=== PATIENT | female | born 1945 | race Caucasian/White ===

== ENCOUNTER → 2017-12-30 09:00 | Outpatient (CLI) | payer MEDICARE, OTHER, SELFPAY ==
--- NOTE | 2017-12-30 | DI.US.S_ITS ---
PROCEDURE: US ABD AORTA ANEURYSM SCREEN INDICATIONS: ABDOMINAL AORTIC ANEURYSM SCREENING TECHNIQUE: Real time scanning was performed of the aorta and iliac arteries, with image documentation. COMPARISON: None. FINDINGS: Aorta: Proximal aortic diameter measures 1.9 cm. Mid-aorta measures 1.5 cm. Distal aortic diameter is 1.7 cm. Iliac arteries: Right common iliac artery measures 1.1 cm. Left common iliac artery measures 1.2 cm. IMPRESSION: Negative for aneurysm. Dictated by: Fidencio Pimentel M.D. on 12/30/2017 at 10:37 Approved by: Fidencio Pimentel M.D. on 12/30/2017 at 10:38
== END ==
PROVIDERS: Family Provider Family Medicine; PCP Family Medicine; Visit Provider Family Medicine
DX: Z13.6 Encounter for screening for cardiovascular disorders (principal); M85.852 Other specified disorders of bone density and structure, left thigh; Z78.0 Asymptomatic menopausal state; Z82.62 Family history of osteoporosis; Z85.3 Personal history of malignant neoplasm of breast
CPT/HCPCS: 76706; 77080

== ENCOUNTER 2018-03-24 07:32 | Day surgery (SDC) | payer MEDICARE, OTHER, SELFPAY ==
--- NOTE | 2018-03-24 | PATH_ITS ---
[facility] Accession Number: [id number] . 01 Material submitted: . PART A: CECAL POLYP PART B: ASCENDING COLON POLYPS PART C: DESCENDING COLON POLYP PART D: SIGMOID COLON POLYP . 02 Diagnosis: A. Cecal Polyp: Colonic mucosa with no diagnostic abnormality, consistent with polypoid redundancy. Negative for serrated lesion, dysplasia or malignancy. . B. Ascending Colon Polyps: Sessile serrated adenoma x1. Colonic mucosa with no diagnostic abnormality, consistent with polypoid redundancy x1. . C. Descending Colon Polyp: Hyperplastic polyp. . D. Sigmoid Colon Polyp: Hyperplastic polyp. [facility]/03/26/2018 . 02 Electronically signed: . Angel Wilkins MD, PhD, Pathologist NPI- [id number] . 01 Gross description: . Part A: CECAL POLYP: Received in formalin is 1 fragment(s) of bonilla, soft tissue measuring 0.4 x 0.4 x 0.1 cm submitted entirely in 1 cassette(s) Part B: ASCENDING COLON POLYPS: Received in formalin are 2 fragment(s) of bonilla, soft tissue measuring 0.7 x 0.5 x 0.2 cm to 0.4 x 0.3 x 0.3 cm submitted entirely in 1 cassette(s) Part C: DESCENDING COLON POLYP: Received in formalin is 1 fragment(s) of bonilla, soft tissue measuring 0.5 x 0.4 x 0.4 cm submitted entirely in 1 cassette(s) Part D: SIGMOID COLON POLYP: Received in formalin is 1 fragment(s) of bonilla, soft tissue measuring 0.5 x 0.5 x 0.3 cm submitted entirely in 1 cassette(s) /CKI /CKI . 02 Pathologist provided ICD-10: D12.2 . 02 CPT . 470608, 023627, 921591, [id number] Performed at: [facility] [address] [id number] MD Jermaine Nix MD Phone: [phone] Performed at: [facility] [address] [place], [place] [id number] MD Rosa Moss MD Phone: [phone]
[2018-03-24 07:43] VITALS: BP 139/69; PULSE 60; RESP 15; TEMP 36.6; O2SAT 98; BMI 19.7
[2018-03-24] MEDS: SODIUM CHLORIDE 0.9% 1,000 ML 70 ML IV (07:59)
--- NOTE | 2018-03-24 08:05 | P.HP_ITS ---
History of Present Illness Date Patient Seen: 03/24/18 Chief complaint: [id number] COLONOSCOPY Narrative: Please refer to our office note dated 03/11/2018. There has been no change to the patient's history and physical exam from that office note. Patient History Family & Social History Social History: household members spouse Meds Home Medications Medication Instructions Recorded Confirmed Type metoprolol succinate 25 mg PO DAILY 03/24/18 03/24/18 History Allergies Allergy/AdvReac Type Severity Reaction Status Date / Time No Known Drug Allergies Allergy Verified 03/24/18 08:01 Review of Systems Review of Systems All systems reviewed & are unremarkable except as noted in HPI and below Exam Vital Signs (past 8 hours): - 03/24/18 07:43 Temperature 97.8 F Pulse Rate 60 Respiratory Rate 15 Blood Pressure 139/69 Pulse Oximetry 98 Oxygen Delivery Method Room Air Narrative Exam Narrative: General: Patient is well developed, not in apparent distress Cardiovascular: Regular rate and rhythm, no murmurs, rubs, or gallops; no evidence of edema; no palpable abdominal aortic aneurysm Gastrointestinal: Normoactive bowel sounds, soft, nontender, nondistended, no rebound tenderness, no hepatosplenomegaly, no evidence of hernia Assessment & Plan Plan: Assessment/Plan Narrative: 72-year-old female here for colon polyp surveillance. She has incidental lower abdominal pain and bloating. Last colonoscopy performed in 2012 with note of polyps. Regarding the procedure(s), the risks and potential complications, benefits, and alternatives (including not doing the procedure) were discussed with the patient. The risks include but are not limited to bleeding, splenic injury, infection, perforation which may require surgical intervention, missed lesions, and adverse reactions to sedative medicines. After a question and answer period , the patient agreed to proceed with the procedure(s) and gives informed consent.
--- NOTE | 2018-03-24 08:45 | PM.OP.ENDO ---
Operative Date/Time/Diagnoses Date of procedure: 03/24/18 Procedure Notes Procedure in detail: Surgeon: Matthew Snowden MD Procedure: Colonoscopy with polypectomy Preoperative diagnosis: Colon polyp surveillance, incidental lower abdominal pain Postoperative diagnosis: Five colon polyps status post polypectomy, sigmoid diverticulosis, grade 1 internal hemorrhoids Medications: Conscious sedation using 4 mg IV of Midazolam and 100 mcg IV of Fentanyl Preanesthesia Assessment An H and P was performed/updated and the Px?s ASA class is 2. The procedure was discussed in detail with the patient. The potential risks and complications including infection, bleeding, missed lesions, perforation, need for surgery in case of perforation, prolonged hospital stay, and were explained. A brief question and answer period was allotted and once all questions were answered, informed consent was obtained. The patient was brought back to the procedure room and placed on standard monitoring. The patient?s vital signs were monitored continuously throughout the entire procedure. Prior to starting, a timeout was performed to confirm the patient?s identity, allergies, medications, and procedure. Procedure in detail The patient was placed in left lateral decubitus position and once adequate sedation was obtained a SIMONE was performed. The digital rectal examination did not reveal any palpable lesions. The tip of the colonoscope was placed in the anal canal and advanced without difficulty all the way to the cecum which was identified by the appendiceal orifice and the ileocecal valve. The terminal ileum was intubated to a distance of 5 cm from the ileocecal valve and the mucosa appeared normal. The colonoscope was brought back to cecum and careful examination of all jordan of the colon was performed with irrigation of any residual stool. In the cecum near the appendiceal orifice there is note of a 3 mm sessile polyp which was removed by means of cold Jumbo forceps with minimal bleeding. Resection and retrieval were complete. There were a total of 3 polyps in the ascending colon, descending colon, and sigmoid colon measuring 2-3 mm in size and were sessile. These were removed by means of cold Jumbo forceps with minimal bleeding. Resection and retrieval were complete. There was a 5 mm sessile polyp in the ascending colon which was removed by means of cold snare with minimal bleeding. Resection and retrieval were complete There was note of few small diverticula in the sigmoid colon. Retroflexion was performed in the rectum which revealed grade 1 internal hemorrhoids. The patient tolerated the procedure well and will be brought back to the recovery area to be discharged once criteria are met. The prep was judged to be good/excellent and adequate to identify polyps less than 5 mm. The withdrawal time was 12 min. The total physician intraservice time was 20 min. Complications There were no complications and estimated blood loss was minimal. Recommendations: Resume previous diet Continue outPx medications Follow up pathology results Repeat colonoscopy in 3 or 5 years depending on pathology results Office follow up with Dr. Kohli as previously scheduled An emergency contact number was given to the patient for any complications related to the procedure
[2018-03-24 09:10] VITALS: BP 116/55; PULSE 60; RESP 12; TEMP 36.3; O2SAT 99
[2018-03-24] MEDS: MIDAZOLAM 5 MG/5 ML VIAL IV (09:10)
[2018-03-24] MEDS: fentaNYL 250 MCG/5 ML INJ IV (09:10)
--- NOTE | 2018-03-24 09:10 | PM.DS.1 ---
History of Present Illness Chief complaint: [id number] COLONOSCOPY Narrative: Please refer to our office note dated 03/11/2018. There has been no change to the patient's history and physical exam from that office note. Discharge Providers Primary care physician: Fely Bailey MD Discharge provider: Matthew Snowden MD Discharge Date: 03/24/18 Exam Vital Signs (past 8 hours): - 03/24/18 07:43 Temperature 97.8 F Pulse Rate 60 Respiratory Rate 15 Blood Pressure 139/69 Pulse Oximetry 98 Oxygen Delivery Method Room Air Narrative Exam Narrative: General: Patient is well developed, not in apparent distress Cardiovascular: Regular rate and rhythm, no murmurs, rubs, or gallops; no evidence of edema; no palpable abdominal aortic aneurysm Gastrointestinal: Normoactive bowel sounds, soft, nontender, nondistended, no rebound tenderness, no hepatosplenomegaly, no evidence of hernia Discharge Plan Discharge Plan Patient Disposition: Home Discharge comment: Discharge patient with a copy of procedure report Discharge Med Rec/Prescriptions Prescriptions: No Action metoprolol succinate 25 MG tablet 25 mg PO DAILY RF: 0 Discharge Orders: Discharge (Order); Ordered 03/24/18 Ordered By: Matthew Snowden Provider Discharge Instructions Diet: Diet as Tolerated Visit Report/Discharge Packet Stand Alone Forms: Surgery Discharge Discharge Data Primary Care Provider: Fely Bailey Attending Provider: Matthew Snowden
[2018-03-24 09:15] VITALS: BP 120/58; PULSE 55; RESP 12; O2SAT 100
[2018-03-24 09:19] VITALS: BP 114/53; PULSE 56; RESP 15; O2SAT 100
[2018-03-24 09:26] VITALS: BP 111/74; PULSE 67; RESP 12; TEMP 36.8; O2SAT 99
== END 2018-03-24 09:42 | disposition home or self-care (01) ==
PROVIDERS: Family Provider Family Medicine; PCP Family Medicine; Visit Provider Internal Medicine Gastroenterology
PROC: 0DJD8ZZ Inspection of Lower Intestinal Tract, Via Natural or Artificial Opening Endoscopic (ICD-10-PCS; CPT 45378; principal; 2018-03-24 09:00)
DX: R10.30 Lower abdominal pain, unspecified (principal); Z86.010 Personal history of colon polyps; K57.30 Diverticulosis of large intestine without perforation or abscess without bleeding; K64.0 First degree hemorrhoids; D12.2 Benign neoplasm of ascending colon
CPT/HCPCS: 45385; 45380; 88305; J2250; J3010

== ENCOUNTER → 2018-10-11 13:44 | Outpatient (CLI) | payer MEDICARE, OTHER, SELFPAY ==
--- NOTE | 2018-10-11 | DI.MRI.S_ITS ---
PROCEDURE: MR HEAD/BRAIN WO CON INDICATIONS: TRANSIENT CEREBRAL ISCHEMIA TECHNIQUE: Non-contrast axial T1 spin echo, axial T2 fast spin echo, sagittal and axial FLAIR, coronal T2 fast spin echo, axial gradient echo, axial diffusion and ADC through the brain. COMPARISON: None. FINDINGS: Image quality: Excellent. CSF spaces: Ventricles appear symmetric in size and shape. Basal cisterns are patent. No extra-axial fluid collections. Brain: No intracranial bleeds or mass effects. There is cerebral volume loss for age. There are periventricular and deep white matter chronic small vessel ischemic changes. Brainstem appears normal. Diffusion-weighted images show no acute ischemic insults. No chronic ischemic insults. Normal intravascular flow voids are present. Skull and face: Calvarial bone marrow is normal in signal. Orbits are normal. Sinuses: Sinuses and mastoids are clear. IMPRESSION: 1. No acute intracranial process. No acute ischemia. 2. Moderate atrophy and chronic microvascular ischemic changes. . Dictated by: Tahmina Snyder M.D. on 10/11/2018 at 14:43 Approved by: Tahmina Snyder M.D. on 10/11/2018 at 14:44
== END ==
PROVIDERS: Family Provider Family Medicine; PCP Family Medicine; Visit Provider Family Medicine
DX: G45.9 Transient cerebral ischemic attack, unspecified (principal)
CPT/HCPCS: 70551

== ENCOUNTER → 2018-10-25 08:27 | Outpatient (CLI) | payer MEDICARE, OTHER, SELFPAY ==
[2018-10-25 09:17] LABS: Alanine Aminotransferase 17 IU/L (9-52); Albumin 4.2 g/dL (3.5-5.0); Albumin Globulin Ratio 1.2 (1.0-2.8); Alkaline Phosphatase 78 U/L (38-126); Aspartate Aminotransferase 28 IU/L (14-36); Bilirubin Total 0.8 mg/dL (0.2-1.3); Blood Urea Nitrogen 19 mg/dL (7-17); Calcium 9.2 mg/dL (8.4-10.2); Carbon Dioxide 29 mmol/L (22-32); Chloride 105 mmol/L (98-107); Estimated Glomerular Filt Rate 54.5 mL/min (>60); Globulin 3.5 g/dL (1.7-4.1); Glucose 109 mg/dL (80-110); HEMOLYSIS < 15 (0-50); Potassium 4.5 mmol/L (3.4-5.1); Sodium 143 mmol/L (137-145); Total Protein 7.7 g/dL (6.3-8.2)
--- NOTE | 2018-10-25 10:25 | DI.CT.S_ITS ---
PROCEDURE: CT ABDOMEN PELVIS W CON INDICATIONS: Lower abdominal pain, unspecified TECHNIQUE: After the administration of oral and intravenous contrast, 5 mm thick sections acquired from the diaphragms to the symphysis. 5 mm thick coronal and sagittal reformats were performed. For radiation dose reduction, the following was used: automated exposure control, adjustment of mA and/or kV according to patient size. COMPARISON: [facility], US, US ABD AORTA ANEURYSM SCREEN, 12/30/2017, 9:40. FINDINGS: Image quality: Excellent. ABDOMEN: Lung bases: Lung bases are clear. Heart size is normal. Solid organs: Liver is normal in size and enhancement. Gallbladder wall is not thickened. Biliary system is non-dilated. Pancreas enhances normally. Spleen is normal in size and enhancement. No adrenal nodules. Kidneys are normal in size and enhancement, without hydronephrosis. Peritoneum and bowel: Stomach, small bowel, and colon loops are normal in caliber and wall thickness. No free fluid or air. Incidental note is made of a normal-appearing appendix. A mild to moderate amount of stool can be seen within the colon. Nodes and vessels: No retroperitoneal or mesenteric adenopathy. Aorta and inferior vena cava are normal in caliber. Miscellaneous: No ventral hernias. PELVIS: Genitourinary: Bladder wall thickness is normal. An atrophic uterus can be seen. No adnexal masses are seen. Miscellaneous: No inguinal hernias or adenopathy. Bones: No suspicious bony lesions. No vertebral body compression fractures. Focal L5-S1 degenerative change is seen. Mild levoconvex scoliotic curvature is noted. IMPRESSION: No imaging explanation is found for this patient's presenting symptoms. A mild to moderate of stool can be seen within the colon. No significant diverticula formation can be seen. Normal appendix. Incidental note is made of: Focal S1 degenerative change Dictated by: Fidencio Pimentel M.D. on 10/25/2018 at 12:10 Approved by: Fidencio Pimentel M.D. on 10/25/2018 at 12:12
== END ==
LOC: CT 08:28 → LAB 08:47
PROVIDERS: PCP Family Medicine; Visit Provider Family Medicine
DX: R10.30 Lower abdominal pain, unspecified (principal)
CPT/HCPCS: 36415; 74177; 80053; Q9967

== ENCOUNTER → 2018-11-18 10:13 | Outpatient (CLI) | payer MEDICARE, OTHER, SELFPAY ==
--- NOTE | 2018-11-18 | DI.MRI.S_ITS ---
PROCEDURE: MR SHOULDER LT WO CON INDICATIONS: rotator cuff pain TECHNIQUE: Noncontrast oblique coronal T2 fast spin echo with fat saturation, oblique sagittal T1 spin echo and T2 fast spin echo with fat saturation, axial T1 spin echo and T2 fast spin echo with fat saturation through the shoulder. COMPARISON: None. FINDINGS: Image quality: Excellent. Rotator cuff: Infraspinatus tendinopathy and low-grade bursal surface fraying. Teres minor appears intact. Subscapularis tendon also demonstrates low-grade bursal surface fraying without discrete tear. The subscapularis tendon appears intact. No atrophy of the rotator cuff musculature Bones and bursae: No bone marrow contusions or fractures. Mild acromioclavicular joint degeneration. The acromion demonstrates conventional anatomy, without an os acromiale. Mild subacromial/subdeltoid bursitis. Capsule and soft tissues: In the absence of intra-articular contrast, the labrum and glenohumeral ligaments appear intact. The long head of the biceps tendon demonstrates normal location and morphology. The rotator interval appears normal, without fibrosis. The coracohumeral ligament is not well visualized. IMPRESSION: Low-grade bursal surface fraying of the infraspinatus and supraspinatus tendons without discrete tear. Infraspinatus tendinopathy. Mild subacromial/subdeltoid bursitis. Dictated by: Missael Plummer M.D. on 11/18/2018 at 11:49 Approved by: Missael Plummer M.D. on 11/18/2018 at 11:53
--- NOTE | 2018-11-18 | DI.MRI.S_ITS ---
PROCEDURE: MR LUMBAR SPINE WO CON INDICATIONS: spinal stenosis TECHNIQUE: Noncontrast sagittal T1 spin echo and T2 fast echo, sagittal STIR, axial T1 and T2 fast spin echo through the lumbar spine. In cases with scoliosis, additional coronal T2 fast spin echo may be performed. COMPARISON: [facility], MR, L-SPINE WITHOUT CONTRAST, 06/19/2015, 9:10. [facility], CT, CT ABDOMEN PELVIS W CON, 10/25/2018, 10:35. FINDINGS: Image quality: Diagnostic Alignment and Curvature: There is normal bony alignment. Bone Marrow: Marrow is of normal overall signal. Scattered foci are seen, which are hyperintense on T1-weighted and T2-weighted imaging, which are most consistent with benign vertebral body hemangiomas. No acute vertebral body compression fractures. Spinal Cord: Conus medullaris terminates at the L1 level. Visualized cord demonstrates normal signal and size. Paraspinous Soft Tissues: No paravertebral masses. T12-L1: Normal appearance. L1-L2: No significant abnormality is seen. L2-L3: Mild to moderate loss of disc height and disc signal are seen. There is moderate disc bulge is seen, with a superimposed right foraminal disc extrusion, with superior migration of disc material. There is a degree of compression seen upon the exiting right L2 nerve root. This is best seen on series 3 images 4 and 5. No left-sided neural foraminal narrowing is seen. Mild central canal narrowing is seen. The disc extrusion is new compared to the prior examination. L3-L4: Mild loss of disc height is seen. Loss of disc signal is seen. Mild to moderate disc osteophyte complex is seen. Minimal to mild bilateral neural foraminal narrowing is seen. Mild central canal narrowing is seen. When comparison is made with the prior examination, these findings are similar. L4-L5: Moderate loss of disc height is seen. Loss of disc signal is seen. There is a focal annular fissure seen posteriorly. Moderate disc bulge is seen, with a mild central disc protrusion. Moderate facet joint hypertrophy is seen. There is moderate left-sided and no significant right-sided neural foraminal narrowing seen. No significant central canal narrowing is seen. No significant change from the prior. L5-S1: The disc height is well-preserved. Loss of disc signal is seen at this level. Moderate generalized disc bulge is seen. There is a superimposed left lateral recess disc extrusion seen, with superior migration of disc material. The disc extrusion is best seen on series 2 image 11. There is a degree of compression seen upon the exiting left L5 nerve root. Moderate right-sided neural foraminal narrowing is seen. No significant central canal narrowing is seen. The left-sided disc extrusion is clearly progressed compared to 2016. IMPRESSION: New disc extrusions can be seen within the foraminal regions on the right at L2-L3 and on the left at L5-S1. There is associated nerve root impingement. The underlying degenerative changes are otherwise similar. Dictated by: Fidencio Pimentel M.D. on 11/18/2018 at 12:31 Approved by: Fidencio Pimentel M.D. on 11/18/2018 at 12:37
== END ==
PROVIDERS: PCP Family Medicine; Visit Provider Physical Medicine & Rehabilitation
DX: M25.512 Pain in left shoulder (principal); M75.52 Bursitis of left shoulder; M51.26 Other intervertebral disc displacement, lumbar region; M51.27 Other intervertebral disc displacement, lumbosacral region; M48.07 Spinal stenosis, lumbosacral region
CPT/HCPCS: 72148; 73221

== ENCOUNTER → 2019-12-20 07:16 | Outpatient (CLI) | payer MEDICARE, OTHER, SELFPAY ==
[2019-12-20 09:08] LABS: Alanine Aminotransferase 22 IU/L (<35); Albumin 3.9 g/dL (3.5-5.0); Albumin Globulin Ratio 1.2 (1.0-2.8); Alkaline Phosphatase 79 U/L (38-126); Aspartate Aminotransferase 25 IU/L (14-36); BUN Creatinine Ratio 20.6 (6-22); Bilirubin Total 0.8 mg/dL (0.2-1.3); Blood Urea Nitrogen 20 mg/dL (7-17); Calcium 9.1 mg/dL (8.4-10.2); Carbon Dioxide 32 mmol/L (22-32); Chloride 105 mmol/L (98-107); Cholesterol 131 mg/dL (140-199); Estimated Glomerular Filt Rate 56.3 mL/min (>60); Globulin 3.2 g/dL (1.7-4.1); Glucose 103 mg/dL (80-110); HDL Cholesterol 50 mg/dL (40-60); HEMOLYSIS < 15 (0-50); LDL Cholesterol Calculated 59 mg/dL (<100); Potassium 4.7 mmol/L (3.4-5.1); Sodium 139 mmol/L (137-145); Total Protein 7.1 g/dL (6.3-8.2); Triglycerides 108 mg/dL (35-150)
[2019-12-20 09:33] LABS: Thyroid Stimulating Hormone 2.59 uIU/mL (0.47-4.68)
== END ==
PROVIDERS: PCP Family Medicine; Referring Provider Family Medicine; Visit Provider Family Medicine
DX: E78.5 Hyperlipidemia, unspecified (principal); R00.2 Palpitations
CPT/HCPCS: 36415; 80053; 80061; 84443

== ENCOUNTER → 2020-01-13 13:11 | Outpatient (CLI) | payer MEDICARE, OTHER, SELFPAY | PROVIDERS: PCP Family Medicine; Referring Provider Family Medicine; Visit Provider Family Medicine | DX: M81.0 Age-related osteoporosis without current pathological fracture (principal); Z78.0 Asymptomatic menopausal state | CPT/HCPCS: 77080 ==

== ENCOUNTER → 2020-06-15 07:07 | Outpatient (CLI) | payer MEDICARE, OTHER, SELFPAY ==
[2020-06-15 08:42] LABS: Add Manual Diff / Slide Review NO; Basophils Absolute Auto 100 /uL (0-100); Basophils Percent Auto 0.8 % (0-2); Eosinophils Absolute Auto 200 /uL (0-450); Eosinophils Percent Auto 2.4 % (2-4); Hematocrit 41.9 % (36-46); Hemoglobin 14.3 g/dL (12.0-16.0); Lymphocytes Absolute Auto 2500 /uL (1100-4500); Mean Corpuscular HGB Conc 34.1 % (30-36); Mean Corpuscular Volume 91.1 fL (80-100); Monocytes Absolute Auto 500 /uL (0-900); Monocytes Percent Auto 7.1 % (3-14); Neutrophils Absolute Auto 4000 /uL (1500-7000); Neutrophils Percent Auto 55.7 % (50-75); Platelet Count 197 X10^3/uL (150-400); Red Blood Cell Count 4.61 X10^6/uL (4.0-5.2); Red Cell Distribution Width 13.1 % (11.6-14.8); White Blood Cell Count 7.2 X10^3/uL (4.5-11.0)
[2020-06-15 09:04] LABS: Alanine Aminotransferase 68 IU/L (<35); Albumin Globulin Ratio 1.3 (1.0-2.8); Alkaline Phosphatase 94 U/L (38-126); Aspartate Aminotransferase 35 IU/L (14-36); Bilirubin Total 0.5 mg/dL (0.2-1.3); Blood Urea Nitrogen 23 mg/dL (7-17); Calcium 9.3 mg/dL (8.4-10.2); Carbon Dioxide 28 mmol/L (22-32); Chloride 105 mmol/L (98-107); Estimated Glomerular Filt Rate > 60.0 mL/min (>60); Globulin 3.1 g/dL (1.7-4.1); Glucose 104 mg/dL (80-110); HEMOLYSIS < 15 (0-50); Magnesium 2.1 mg/dL (1.6-2.3); Potassium 4.1 mmol/L (3.4-5.1); Sodium 139 mmol/L (137-145); Total Protein 7.1 g/dL (6.3-8.2)
== END ==
PROVIDERS: PCP Family Medicine; Referring Provider Family Medicine; Visit Provider Family Medicine
DX: I49.1 Atrial premature depolarization (principal); R42 Dizziness and giddiness
CPT/HCPCS: 36415; 80053; 83735; 84443; 85025

== ENCOUNTER → 2020-08-13 13:17 | Outpatient (CLI) | payer MEDICARE, OTHER, SELFPAY ==
[2020-08-13 16:40] LABS: COVID19 -Nasal RAPID Negative (Negative)
== END ==
PROVIDERS: PCP Family Medicine; Visit Provider Student in an Organized Health Care Education/Training Program
DX: Z01.812 Encounter for preprocedural laboratory examination (principal); Z20.822 Contact with and (suspected) exposure to COVID-19
CPT/HCPCS: 87635; C9803

== ENCOUNTER 2020-08-14 07:02 | Day surgery (SDC) | payer MEDICARE, OTHER, SELFPAY ==
[2020-08-14] MEDS: CATARACT EYE COMPOUND (10 DROPS/SYRINGE) 3 DROPS EYE-OP (07:42)
[2020-08-14] MEDS: PROPARACAINE 0.5% OPHTH SOL 2 DROPS EYE-OP (07:42)
[2020-08-14 07:45] VITALS: BP 152/75; PULSE 64; RESP 16; TEMP 36.6; O2SAT 97; BMI 21.4
--- NOTE | 2020-08-14 08:35 | P.OP_ITS ---
Operative Date/Time/Diagnoses Pre-op diagnosis: Nuclear cataract right eye Procedure & Clinicians Procedure: Cataract Surgery Same procedure as scheduled: Yes Surgeon: Hermilo Peralta Anesthesia Type: MAC +/- and Sedation Operative Notes Procedure in detail: Patient brought to the operating suite. Tetracaine drops placed in the right eye. Marking instrument was used to gia vertical and horizontal meridians. Patient was prepped and draped in sterile manner. Wire lid speculum was placed in the eye. Marking instrument was used to gia 10 degree meridian. Betadine drops were placed on the eye. This was irrigated. Lidocaine jelly was placed on the eye. A paracentesis port was created with a side-port blade. 0.1 mL 1% preservative free lidocaine was injected into the anterior chamber. The anterior chamber was deepened with viscoelastic. 2.6 mm keratome was used to create a temporal clear corneal incision. Cystotome and Utrata forceps were used to create continuous tear capsulorrhexis. Balanced salt solution was used to hydro dissect the nucleus. The phacoemulsification handpiece was inserted and the nucleus was removed using the stop and chop technique. The irrigation aspiration handpiece was inserted and the remaining cortex was removed. Anterior chamber was deepened with viscoelastic. An Smith [id number] intraocular lens with a power of 20.0 was injected into the capsular bag. Irrigation aspiration handpiece was inserted and the remaining viscoelastic was removed. The lens was rotated to the 10 degree meridian. Incision was hydrated with balanced salt solution and found to be leak free with pressure with Weck- Cesia sponges. 0.1 mL Vigamox injected anterior chamber. 0.3 mL Kenalog 10 mg was injected subconjunctivally. Lid speculum was removed. The patient left the operating room in excellent condition. Complications: none Post-operative Condition: stable Disposition: same day surgery
--- NOTE | 2020-08-14 08:35 | PM.PREOP ---
Pre-operative Note Interval Note History & Physical reviewed/Exam performed by Physician: Yes Changes to H&P: No
[2020-08-14] MEDS: BALANCED SALT IRRIG SOLN NO.2 500 ML, EPINEPHrine 1 MG IRR (08:53)
[2020-08-14] MEDS: TRIAMCINOLONE 50 MG/5 ML VIAL INJ (08:53)
[2020-08-14] MEDS: LIDOCAINE 2% (GLYDO) 6 ML GEL TOP (08:53)
[2020-08-14] MEDS: MOXIFLOXACIN INJ 4 MG/0.8 ML VIAL 0.5 MG EYE-OP (08:53)
[2020-08-14] MEDS: TETRACAINE 0.5% OPHTH DROPS 4 ML 2 DROPS EYE-OP (08:54)
[2020-08-14] MEDS: CHONDROIDTIN/SOD HYALURONATE 1.05 ML SYRINGE INTRAOCULA (08:54)
[2020-08-14] MEDS: PHENYLEPHRINE/LIDOCAINE VIAL (OR) 0.2 ML EYE-OP (08:54)
[2020-08-14 09:14] VITALS: BP 149/73; PULSE 60; RESP 16; TEMP 36.7; O2SAT 98
--- NOTE | 2020-08-14 09:19 | SUR.PHASEII ---
Ready to go, called, pt dressed and left when ready.
== END 2020-08-14 09:23 | disposition home or self-care (01) ==
PROVIDERS: PCP Family Medicine; Referring Provider Family Medicine; Visit Provider Ophthalmology
PROC: (CPT 66984; principal; 2020-08-14 08:45)
DX: H25.11 Age-related nuclear cataract, right eye (principal); G51.0 Bell's palsy; E78.00 Pure hypercholesterolemia, unspecified; I10 Essential (primary) hypertension
CPT/HCPCS: 66984; J0171; J2250; J2704; J3301; V2787

== ENCOUNTER → 2020-08-27 09:38 | Outpatient (CLI) | payer MEDICARE, OTHER, SELFPAY ==
[2020-08-27 11:27] LABS: COVID19 -Nasal RAPID Negative (Negative)
== END ==
PROVIDERS: PCP Family Medicine; Visit Provider Student in an Organized Health Care Education/Training Program
DX: Z01.812 Encounter for preprocedural laboratory examination (principal); Z20.822 Contact with and (suspected) exposure to COVID-19
CPT/HCPCS: 87635; C9803

== ENCOUNTER 2020-08-28 06:33 | Day surgery (SDC) | payer MEDICARE, OTHER, SELFPAY ==
[2020-08-28 07:03] VITALS: BP 142/82; PULSE 61; RESP 13; TEMP 36.7; O2SAT 96; BMI 19.7
[2020-08-28] MEDS: PROPARACAINE 0.5% OPHTH SOL 2 DROPS EYE-OP (07:10)
[2020-08-28] MEDS: CATARACT EYE COMPOUND (10 DROPS/SYRINGE) 3 DROPS EYE-OP (07:11)
--- NOTE | 2020-08-28 07:27 | P.OP_ITS ---
Operative Date/Time/Diagnoses Pre-op diagnosis: Nuclear Cataract Left eye Post-op diagnosis: same Procedure & Clinicians Same procedure as scheduled: Yes Surgeon: Hermilo Peralta Anesthesia Type: MAC +/- and Sedation Operative Notes Procedure in detail: Patient brought to the operating suite. Tetracaine drops placed in the left eye. Marking instrument was used to gia the vertical and horizontal meridian. Patient was prepped and draped in sterile manner. Wire lid speculum was placed in the eye. Marking instrument was used to gia the 175 degree meridian. Betadine drops were placed on the eye. This was irrigated. Lidocaine jelly was placed on the eye. A paracentesis port was created with a side-port blade. 0.1 mL 1% preservative free lidocaine was injected into the anterior chamber. The anterior chamber was deepened with viscoelastic. 2.6 mm keratome was used to create a temporal clear corneal incision. Cystotome and Utrata forceps were used to create continuous tear capsulorrhexis. Balanced salt solution was used to hydro dissect the nucleus. The phacoemulsification handpiece was inserted and the nucleus was removed using the stop and chop te chnique. The irrigation aspiration handpiece was inserted and the remaining cortex was removed. Anterior chamber was deepened with viscoelastic. An Smith [id number] intraocular lens with a power of 20.0 was injected into the capsular bag. Irrigation aspiration handpiece was inserted and the remaining viscoelastic was removed. The lens was rotated to the 175 degree meridian. Incision was hydrated with balanced salt solution and found to be leak free with pressure with Weck- Cesia sponges. 0.1 mL Vigamox injected anterior chamber. 0.3 mL Kenalog 10 mg was injected subconjunctivally. Lid speculum was removed. The patient left the operating room in excellent condition. Complications: none Post-operative Condition: stable Disposition: same day surgery
--- NOTE | 2020-08-28 07:27 | PM.PREOP ---
Pre-operative Note Interval Note History & Physical reviewed/Exam performed by Physician: Yes Changes to H&P: No
[2020-08-28] MEDS: TETRACAINE 0.5% OPHTH DROPS 4 ML 2 DROPS EYE-OP (07:43)
[2020-08-28] MEDS: CHONDROIDTIN/SOD HYALURONATE 1.05 ML SYRINGE INTRAOCULA (07:50)
[2020-08-28] MEDS: PHENYLEPHRINE/LIDOCAINE VIAL (OR) 0.2 ML EYE-OP (07:51)
[2020-08-28] MEDS: MOXIFLOXACIN INJ 4 MG/0.8 ML VIAL 0.5 MG EYE-OP (07:51)
[2020-08-28] MEDS: LIDOCAINE 2% (GLYDO) 6 ML GEL TOP (07:52)
[2020-08-28] MEDS: BALANCED SALT IRRIG SOLN NO.2 500 ML, EPINEPHrine 1 MG IRR (07:53)
[2020-08-28] MEDS: TRIAMCINOLONE 50 MG/5 ML VIAL INJ (07:53)
[2020-08-28 08:14] VITALS: BP 145/78; PULSE 58; RESP 14; TEMP 36.9; O2SAT 96
== END 2020-08-28 08:19 | disposition home or self-care (01) ==
PROVIDERS: PCP Family Medicine; Referring Provider Ophthalmology; Visit Provider Ophthalmology
PROC: (CPT 66984; principal; 2020-08-28 07:45)
DX: H25.12 Age-related nuclear cataract, left eye (principal); G51.0 Bell's palsy; E78.00 Pure hypercholesterolemia, unspecified; I10 Essential (primary) hypertension
CPT/HCPCS: 66984; J0171; J2250; J2405; J3301; V2787

== ENCOUNTER 2020-11-16 13:00 | Outpatient (RCR) | payer MEDICARE, OTHER, SELFPAY ==
--- NOTE | 2020-10-10 15:36 | PT.OIE ---
Current Diagnoses Bilateral primary osteoarthritis of hip (10/10/20) Spinal stenosis, lumbar region without neurogenic claudication (10/10/20) Age-related osteoporosis without current pathological fracture (10/10/20) Visit Care Team Role Provider Type Fely Bailey MD Primary Care Provider Non-Staff Specialty: Family Practice Address: [address] [place] [address], [phone] Email: Nish Kinsey MD Attending Provider Physician Referring Provider Specialty: Orthopedics Address: [address] [place] [address], [phone] Email: [email or web address] Physical Therapy Initial Evaluation PT-OP-A Visit Information Start: 10/09/20 15:32 Freq: Status: Active Protocol: Document 10/10/20 08:57 MB (Rec: 10/10/20 09:17 MB [id number]) Out-Patient Physical Therapy Visit Information Visit Information Visit Type Initial Evaluation Visit Note Medicare Premera Visit Start Time 08:57 Visit Stop Time 09:42 Total Visit Minutes 45 Visit Number 1 PT-OP-B Current Condition Start: 10/09/20 15:32 Freq: Status: Active Protocol: Document 10/10/20 08:57 MB (Rec: 10/10/20 09:17 MB [id number]) Current Condition History of Current Condition Onset Date Many years of LBP Current Complaints LBP that occ goes down the legs History of Current Condition Pt states that she has had LBP for many years. It has gotten worse over the last year that she thinks might be worse d/t lack of activity over COVID. Pt's last bone scan reported OP and she is not on any medication. Pt reports pretty much constant LBP that she rates as 4/10 and 3/10 right hip pain. Order from doctor B primary OA of the hip, spinal stenosis lumbar region without claudication, OP unspecified. Pt reports occ pinching pain that goes down both legs and across groin. She more often has pain going down the right leg. She was hoping to get another MRI of her back and her doctor would like for her to try PT first. Pt had PT in the past for LBP. She went to [facility] and did not connect with the people there. She went to another therapist on [address] and the pain did not get better. She still has her exercises. She has pain when she turns over in bed. Prior Treatments and Tests PT in the past that did not help. Treatment Goals Patient/Caregiver Goals To decrease pain and improve flexibility PT-OP-C Subjective Start: 10/09/20 15:32 Freq: Status: Active Protocol: Document 10/10/20 08:57 MB (Rec: 10/10/20 09:17 MB [id number]) OP-PT Subjective Patient Comments Patient Comments See history of current condition Patient Questionnaires Lower Extremity Functional Scale LEFS Score 46 LEFS Impairment 40 to 59% Impaired (Score 32- 47) Oswestry Low Back Index Oswestry Score 10 Oswestry Impairment 20 to 39% Impaired (Score 20- 39) PT-OP-J Posture/Palpation/Skin Start: 10/09/20 15:32 Freq: Status: Active Protocol: Document 10/10/20 08:57 MB (Rec: 10/10/20 15:35 MB [id number]) Posture Evaluation Comments Posture Comments Dowager's hump, decreased thoracic kyphosis, right cervical SB and increased tension at right SCM attachment to SC joint, right shoulder lower than the left, right scapula lower than the left, left iliac crest higher than the right, left ankle overpronated. No noticeable lateral shift scoliosis in standing (may be appropriate for Spinomed IV brace in the future), some changes at lower cervical and upper thoracic vertebra C7-T2 area. Spinal movement comments: B thoracic rotation grossly similar in sitting, B SB with hands sliding down the outside of leg grossly similar and pt reports it feels more stiff on the left PT-OP-K Range of Motion Start: 10/09/20 15:32 Freq: Status: Active Protocol: Document 10/10/20 08:57 MB (Rec: 10/10/20 15:35 MB [id number]) Hip Goniometric Range of Motion Hip ROM Limitations Comments SLR right 60 deg and left 75 deg PT-OP-M Strength Start: 10/09/20 15:32 Freq: Status: Active Protocol: Document 10/10/20 08:57 MB (Rec: 10/10/20 15:35 MB [id number]) Hip Strength Hip Manual Muscle Testing Left Flexion (L2) 5 Normal Abduction 4 Good Adduction 4 Good Right Flexion (L2) 3+ Fair+ Abduction 3+ Fair+ Adduction 4 Good Knee Strength Knee Manual Muscle Testing Left Flexion (S2) 5 Normal Extension (L3) 5 Normal Right Flexion (S2) 4 Good Extension (L3) 5 Normal Ankle/Foot Strength Ankle and Foot Manual Muscle Testing Bilateral Dorsiflexion (L4) 5 Normal Plantarflexion (S1) 5 Normal Toe Strength Toe Manual Muscle Testing Right Great Toe Extension 5 Normal Left Great Toe Extension 5 Normal PT-OP-Q Treatments Start: 10/09/20 15:32 Freq: Status: Active Protocol: Document 10/10/20 08:57 MB (Rec: 10/10/20 15:35 MB [id number]) Self-Care/Home Management Treatment Education Other Education Benefits of aquatic exercise and that PT can provide program for her to try in the pool, benefits of log roll technique to protect spine, use of towel roll in pillow case to support neck and pillow between arms and legs to support posture in side lying PT-OP-T Assessment and Plan Start: 10/09/20 15:32 Freq: Status: Active Protocol: Document 10/10/20 08:57 MB (Rec: 10/10/20 15:35 MB [id number]) Physical Therapy Assessment Rehab Potential Rehabilitation Potential Fair Evaluation Complexity Number of Personal Factors/Comorbidities 1-2 Number of Body Systems Impaired 1-2 Clinical Presentation at Evaluation Evolving Impairments Impairments Activity Tolerance,Balance, Functional Activities, Functional Mobility,Gait,Pain, Posture,ROM,Soft Tissue Mobility,Strength Other Impairments Pt denies paresthesisa. Personal factors include recent more sedentary lifestyle. Body systems affected include musculoskeletal and neuromuscular. Her clinical presentation is evolving in setting of progressive age, OP not being treated medically, stenosis (degenerative processes). Goals 5 Jail Goal (LTG) Pt will perform progressive HEP with I including flexibility, core, body mechanics, strengthening and balance exercises to decrease pain and improve mobility by . LTG Duration 8 weeks 4 Fish Hatchery Manager Goal (LTG) Pt will gait train at least 1400 feet in 6 minutes to improve balance and pain with community ambulation by . LTG Duration 8 weeks 3 Fish Hatchery Manager Goal (LTG) Pt will present with improved B hip flexion, abduction and knee extension strength to 5/5 B to improve functional activities and pain by 12/10/20 . LTG Duration 8 weeks 2 Fish Hatchery Manager Goal (LTG) Pt will present with an improved Oswestry LBP score to reflect no more than 10% impairment indicating improved back pain by 12/10/20. LTG Duration 8 weeks 1 Jail Goal (LTG) Pt will present with an improved LEF score to reflect no more than 25% impairment indicating improved function by 12/10/20. LTG Duration 8 weeks Assessment Summary Assessment Pt is a 75 y/o female presenting with reports of chronic and constant LBP, right greater than left hip pain and occ shooting pain in her groins and upper legs. She has a history of OP, spinal stenosis and hip OA. Previous PT courses have not been helpful and she did not try aquatic exercise or Blanca Hailee style interventions or a Spinomed IV brace. Pt may benefit from these interventions and so PT will try these different things with her this PT course. This date, she presents with postural changes, decreased SLR right greater than left, and LE weakness. Pt may benefit from PT to improve posture, core strength, LE flexibility and strength and balance. Physical Therapy Plan Frequency and Duration Frequency of Treatment 2x/Week Duration of Treatment 8 weeks Plan of Care Start Date 10/10/20 Plan of Care End Date 12/10/20 Therapeutic Interventions Therapeutic Interventions Aquatic Therapy,Balance Training,Canalithic Repositioning,Gait Training, Home Exercise Program,Joint Mobilizations,Manual Therapy, Neuromuscular Re-education, Patient/Caregiver Education, Self-Care/Home Management,Soft Tissue Mobilization, Therapeutic Activities, Therapeutic Exercises Modalities Cold Pack/Ice Massage,Hot Packs Next Visit Focus/Plan Next Note Type Treatment Note Next Visit Plan Review her previous PT exercises, initiate pelvic realignment exercises and abdominal drawing in
--- NOTE | 2020-10-10 15:36 | PT.OPPOC ---
Physical, Occupational & Speech Therapy At [facility] Current Diagnoses Bilateral primary osteoarthritis of hip (10/10/20) Spinal stenosis, lumbar region without neurogenic claudication (10/10/20) Age-related osteoporosis without current pathological fracture (10/10/20) Visit Care Team Role Provider Type Fely Bailey MD Primary Care Provider Non-Staff Specialty: [facility] Address: [address] [place] [address], [phone] Email: Nish Kinsey MD Attending Provider Physician Referring Provider Specialty: Orthopedics Address: [address] [place] [address], [phone] Email: [email or web address] Plan Of Care PT-OP-T Assessment and Plan Start: 10/09/20 15:32 Freq: Status: Active Protocol: Document 10/10/20 08:57 MB (Rec: 10/10/20 15:35 MB [id number]) Physical Therapy Assessment Rehab Potential Rehabilitation Potential Fair Evaluation Complexity Number of Personal Factors/Comorbidities 1-2 Number of Body Systems Impaired 1-2 Clinical Presentation at Evaluation Evolving Impairments Impairments Activity Tolerance,Balance, Functional Activities, Functional Mobility,Gait,Pain, Posture,ROM,Soft Tissue Mobility,Strength Other Impairments Pt denies paresthesisa. Personal factors include recent more sedentary lifestyle. Body systems affected include musculoskeletal and neuromuscular. Her clinical presentation is evolving in setting of progressive age, OP not being treated medically, stenosis (degenerative processes). Goals 5 Cpc Coder Goal (LTG) Pt will perform progressive HEP with I including flexibility, core, body mechanics, strengthening and balance exercises to decrease pain and improve mobility by . LTG Duration 8 weeks 4 Cpc Coder Goal (LTG) Pt will gait train at least 1400 feet in 6 minutes to improve balance and pain with community ambulation by . LTG Duration 8 weeks 3 Assisted Goal (LTG) Pt will present with improved B hip flexion, abduction and knee extension strength to 5/5 B to improve functional activities and pain by 12/10/20 . LTG Duration 8 weeks 2 Cpc Coder Goal (LTG) Pt will present with an improved Oswestry LBP score to reflect no more than 10% impairment indicating improved back pain by 12/10/20. LTG Duration 8 weeks 1 Cpc Coder Goal (LTG) Pt will present with an improved LEF score to reflect no more than 25% impairment indicating improved function by 12/10/20. LTG Duration 8 weeks Assessment Summary Assessment Pt is a 75 y/o female presenting with reports of chronic and constant LBP, right greater than left hip pain and occ shooting pain in her groins and upper legs. She has a history of OP, spinal stenosis and hip OA. Previous PT courses have not been helpful and she did not try aquatic exercise or Blanca Hailee style interventions or a Spinomed IV brace. Pt may benefit from these interventions and so PT will try these different things with her this PT course. This date, she presents with postural changes, decreased SLR right greater than left, and LE weakness. Pt may benefit from PT to improve posture, core strength, LE flexibility and strength and balance. Physical Therapy Plan Frequency and Duration Frequency of Treatment 2x/Week Duration of Treatment 8 weeks Plan of Care Start Date 10/10/20 Plan of Care End Date 12/10/20 Therapeutic Interventions Therapeutic Interventions Aquatic Therapy,Balance Training,Canalithic Repositioning,Gait Training, Home Exercise Program,Joint Mobilizations,Manual Therapy, Neuromuscular Re-education, Patient/Caregiver Education, Self-Care/Home Management,Soft Tissue Mobilization, Therapeutic Activities, Therapeutic Exercises Modalities Cold Pack/Ice Massage,Hot Packs Next Visit Focus/Plan Next Note Type Treatment Note Next Visit Plan Review her previous PT exercises, initiate pelvic realignment exercises and abdominal drawing in Plan of Care Dates Plan of Care Start Date 10/10/20 Plan of Care End Date 12/10/20 Electronically Signed by: Elle Finney, PT 10/10/20 [id number] Please Sign and Return: I have reviewed this Plan of Care and certify that the skilled therapy services above are required to meet the patient?s needs. Physician Signature Date Printed Name and Credentials Clinical Instructor Signature Printed Name and Credentials
--- NOTE | 2020-10-11 08:55 | PT.OTN ---
Current Diagnoses Bilateral primary osteoarthritis of hip (10/11/20) Spinal stenosis, lumbar region without neurogenic claudication (10/11/20) Age-related osteoporosis without current pathological fracture (10/11/20) Physical Therapy Treatment Note PT-OP-A Visit Information Start: 10/09/20 15:32 Freq: Status: Active Protocol: Document 10/11/20 08:15 MB (Rec: 10/11/20 08:52 MB [id number]) Out-Patient Physical Therapy Visit Information Visit Information Visit Type Treatment Note Visit Note Medicare Premera Visit Start Time 08:15 Visit Stop Time 08:54 Total Visit Minutes 39 Visit Number 2 PT-OP-B Current Condition Start: 10/09/20 15:32 Freq: Status: Active Protocol: Document 10/10/20 08:57 MB (Rec: 10/10/20 09:17 MB [id number]) Current Condition History of Current Condition Onset Date Many years of LBP Current Complaints LBP that occ goes down the legs History of Current Condition Pt states that she has had LBP for many years. It has gotten worse over the last year that she thinks might be worse d/t lack of activity over COVID. Pt's last bone scan reported OP and she is not on any medication. Pt reports pretty much constant LBP that she rates as 4/10 and 3/10 right hip pain. Order from doctor B primary OA of the hip, spinal stenosis lumbar region without claudication, OP unspecified. Pt reports occ pinching pain that goes down both legs and across groin. She more often has pain going down the right leg. She was hoping to get another MRI of her back and her doctor would like for her to try PT first. Pt had PT in the past for LBP. She went to [facility] and did not connect with the people there. She went to another therapist on [address] and the pain did not get better. She still has her exercises. She has pain when she turns over in bed. Prior Treatments and Tests PT in the past that did not help. Treatment Goals Patient/Caregiver Goals To decrease pain and improve flexibility PT-OP-C Subjective Start: 10/09/20 15:32 Freq: Status: Active Protocol: Document 10/11/20 08:15 MB (Rec: 10/11/20 08:52 MB [id number]) OP-PT Subjective Patient Comments Patient Comments Pt brings in exercises from previous PT courses. PT-OP-J Posture/Palpation/Skin Start: 10/09/20 15:32 Freq: Status: Active Protocol: Document 10/10/20 08:57 MB (Rec: 10/10/20 15:35 MB [id number]) Posture Evaluation Comments Posture Comments Dowager's hump, decreased thoracic kyphosis, right cervical SB and increased tension at right SCM attachment to SC joint, right shoulder lower than the left, right scapula lower than the left, left iliac crest higher than the right, left ankle overpronated. No noticeable lateral shift scoliosis in standing (may be appropriate for Spinomed IV brace in the future), some changes at lower cervical and upper thoracic vertebra C7-T2 area. Spinal movement comments: B thoracic rotation grossly similar in sitting, B SB with hands sliding down the outside of leg grossly similar and pt reports it feels more stiff on the left PT-OP-K Range of Motion Start: 10/09/20 15:32 Freq: Status: Active Protocol: Document 10/10/20 08:57 MB (Rec: 10/10/20 15:35 MB [id number]) Hip Goniometric Range of Motion Hip ROM Limitations Comments SLR right 60 deg and left 75 deg PT-OP-M Strength Start: 10/09/20 15:32 Freq: Status: Active Protocol: Document 10/10/20 08:57 MB (Rec: 10/10/20 15:35 MB [id number]) Hip Strength Hip Manual Muscle Testing Left Flexion (L2) 5 Normal Abduction 4 Good Adduction 4 Good Right Flexion (L2) 3+ Fair+ Abduction 3+ Fair+ Adduction 4 Good Knee Strength Knee Manual Muscle Testing Left Flexion (S2) 5 Normal Extension (L3) 5 Normal Right Flexion (S2) 4 Good Extension (L3) 5 Normal Ankle/Foot Strength Ankle and Foot Manual Muscle Testing Bilateral Dorsiflexion (L4) 5 Normal Plantarflexion (S1) 5 Normal Toe Strength Toe Manual Muscle Testing Right Great Toe Extension 5 Normal Left Great Toe Extension 5 Normal PT-OP-Q Treatments Start: 10/09/20 15:32 Freq: Status: Active Protocol: Document 10/11/20 08:15 MB (Rec: 10/11/20 08:52 MB [id number]) Therapeutic Exercises Supine Exercises Anterior hip stretch Side bilateral Comments Opposite leg bent to chest and one leg straight with QS and DF, 30 sec Hamstring stretch with AP Side bilateral Comments 30 sec hold each, AP foot Knees bent, core tight, lengthening overhead Supine Exercise Name Lengthening with arms overhead Side bilateral Comments Knees bent, core tight, pelvic tilt, B shoulder flexion x10 Happy baby Side bilateral Comments 30 sec hold x2 reps Abdominal drawing in Comments Pelvic tilt first Pelvic realignment exercises Side bilateral Comments 5 reps all, 3 sec hold Self-Care/Home Management Treatment Activities Self-Care/Home Management Activities Pt brings in old handouts. PT and pt review all exercises: piriformis stretch and bridge caused pain. She liked side lying clam circuit. Tennis ball massage on glutes really hurt. PT hands old handouts back to pt and encourages her not to perform any of the exercises at this time. PT-OP-T Assessment and Plan Start: 10/09/20 15:32 Freq: Status: Active Protocol: Document 10/11/20 08:15 MB (Rec: 10/11/20 08:52 MB [id number]) Physical Therapy Assessment Rehab Potential Rehabilitation Potential Fair Evaluation Complexity Number of Personal Factors/Comorbidities 1-2 Number of Body Systems Impaired 1-2 Clinical Presentation at Evaluation Evolving Impairments Impairments Activity Tolerance,Balance, Functional Activities, Functional Mobility,Gait,Pain, Posture,ROM,Soft Tissue Mobility,Strength Other Impairments Pt denies paresthesisa. Personal factors include recent more sedentary lifestyle. Body systems affected include musculoskeletal and neuromuscular. Her clinical presentation is evolving in setting of progressive age, OP not being treated medically, stenosis (degenerative processes). Goals 5 Long-Term Goal (LTG) Pt will perform progressive HEP with I including flexibility, core, body mechanics, strengthening and balance exercises to decrease pain and improve mobility by . LTG Duration 8 weeks 4 Recovery Coordinator Goal (LTG) Pt will gait train at least 1400 feet in 6 minutes to improve balance and pain with community ambulation by . LTG Duration 8 weeks 3 Recovery Coordinator Goal (LTG) Pt will present with improved B hip flexion, abduction and knee extension strength to 5/5 B to improve functional activities and pain by 12/10/20 . LTG Duration 8 weeks 2 Long-Term Goal (LTG) Pt will present with an improved Oswestry LBP score to reflect no more than 10% impairment indicating improved back pain by 12/10/20. LTG Duration 8 weeks 1 Long-Term Goal (LTG) Pt will present with an improved LEF score to reflect no more than 25% impairment indicating improved function by 12/10/20. LTG Duration 8 weeks Assessment Summary Assessment Reviewed pt's previous HEP exercises today. Initiated PT exercises in hook lying. Pt performs well. Physical Therapy Plan Frequency and Duration Frequency of Treatment 2x/Week Duration of Treatment 8 weeks Plan of Care Start Date 10/10/20 Plan of Care End Date 12/10/20 Therapeutic Interventions Therapeutic Interventions Aquatic Therapy,Balance Training,Canalithic Repositioning,Gait Training, Home Exercise Program,Joint Mobilizations,Manual Therapy, Neuromuscular Re-education, Patient/Caregiver Education, Self-Care/Home Management,Soft Tissue Mobilization, Therapeutic Activities, Therapeutic Exercises Modalities Cold Pack/Ice Massage,Hot Packs Next Visit Focus/Plan Next Note Type Treatment Note Next Visit Plan Progress hook lying exercises including lengthening and flexibility, shoulder and hip strengthening, pect stretch. Consider Buteyko breathing, diaphragm awareness
--- NOTE | 2020-10-16 14:37 | PT.OTN ---
Current Diagnoses Bilateral primary osteoarthritis of hip (10/16/20) Spinal stenosis, lumbar region without neurogenic claudication (10/16/20) Age-related osteoporosis without current pathological fracture (10/16/20) Physical Therapy Treatment Note PT-OP-A Visit Information Start: 10/09/20 15:32 Freq: Status: Active Protocol: Document 10/16/20 13:46 MB (Rec: 10/16/20 14:37 MB [id number]) Out-Patient Physical Therapy Visit Information Visit Information Visit Type Treatment Note Visit Note Medicare Premera Visit Start Time 13:46 Visit Stop Time 14:30 Total Visit Minutes 44 Visit Number 3 PT-OP-B Current Condition Start: 10/09/20 15:32 Freq: Status: Active Protocol: Document 10/10/20 08:57 MB (Rec: 10/10/20 09:17 MB [id number]) Current Condition History of Current Condition Onset Date Many years of LBP Current Complaints LBP that occ goes down the legs History of Current Condition Pt states that she has had LBP for many years. It has gotten worse over the last year that she thinks might be worse d/t lack of activity over COVID. Pt's last bone scan reported OP and she is not on any medication. Pt reports pretty much constant LBP that she rates as 4/10 and 3/10 right hip pain. Order from doctor B primary OA of the hip, spinal stenosis lumbar region without claudication, OP unspecified. Pt reports occ pinching pain that goes down both legs and across groin. She more often has pain going down the right leg. She was hoping to get another MRI of her back and her doctor would like for her to try PT first. Pt had PT in the past for LBP. She went to [facility] and did not connect with the people there. She went to another therapist on [address] and the pain did not get better. She still has her exercises. She has pain when she turns over in bed. Prior Treatments and Tests PT in the past that did not help. Treatment Goals Patient/Caregiver Goals To decrease pain and improve flexibility PT-OP-C Subjective Start: 10/09/20 15:32 Freq: Status: Active Protocol: Document 10/16/20 13:46 MB (Rec: 10/16/20 14:37 MB [id number]) OP-PT Subjective Patient Comments Patient Comments Pt states that she has been running her to emergency 2x over the weekend. PT-OP-J Posture/Palpation/Skin Start: 10/09/20 15:32 Freq: Status: Active Protocol: Document 10/10/20 08:57 MB (Rec: 10/10/20 15:35 MB [id number]) Posture Evaluation Comments Posture Comments Dowager's hump, decreased thoracic kyphosis, right cervical SB and increased tension at right SCM attachment to SC joint, right shoulder lower than the left, right scapula lower than the left, left iliac crest higher than the right, left ankle overpronated. No noticeable lateral shift scoliosis in standing (may be appropriate for Spinomed IV brace in the future), some changes at lower cervical and upper thoracic vertebra C7-T2 area. Spinal movement comments: B thoracic rotation grossly similar in sitting, B SB with hands sliding down the outside of leg grossly similar and pt reports it feels more stiff on the left PT-OP-K Range of Motion Start: 10/09/20 15:32 Freq: Status: Active Protocol: Document 10/10/20 08:57 MB (Rec: 10/10/20 15:35 MB [id number]) Hip Goniometric Range of Motion Hip ROM Limitations Comments SLR right 60 deg and left 75 deg PT-OP-M Strength Start: 10/09/20 15:32 Freq: Status: Active Protocol: Document 10/10/20 08:57 MB (Rec: 10/10/20 15:35 MB [id number]) Hip Strength Hip Manual Muscle Testing Left Flexion (L2) 5 Normal Abduction 4 Good Adduction 4 Good Right Flexion (L2) 3+ Fair+ Abduction 3+ Fair+ Adduction 4 Good Knee Strength Knee Manual Muscle Testing Left Flexion (S2) 5 Normal Extension (L3) 5 Normal Right Flexion (S2) 4 Good Extension (L3) 5 Normal Ankle/Foot Strength Ankle and Foot Manual Muscle Testing Bilateral Dorsiflexion (L4) 5 Normal Plantarflexion (S1) 5 Normal Toe Strength Toe Manual Muscle Testing Right Great Toe Extension 5 Normal Left Great Toe Extension 5 Normal PT-OP-Q Treatments Start: 10/09/20 15:32 Freq: Status: Active Protocol: Document 10/16/20 13:46 MB (Rec: 10/16/20 14:37 MB [id number]) Therapeutic Exercises Supine Exercises Buteyko breathing Supine Exercise Name Ed in theory and taught exercise 1 and diaphragm breathing Comments See assessment Pect stretch Side bilateral Comments Core tight, pelvic tilt, arms up and to side, 30 sec Core progression Supine Exercise Name Set position, knee rocking, HS , mini marches, knee fall out Side bilateral Comments 10 reps all exercises, B legs, cues for form Anterior hip stretch Comments Ed pt that it is okay to engage core with this one, focus leg straight Hamstring stretch with AP Comments Pt asks if she should engage core and PT ed no Knees bent, core tight, lengthening overhead Side bilateral Comments B shoulder flexion x10 and pect stretch Happy baby Comments Pt asks if she should engage core and PT ed no Abdominal drawing in Comments Perform before other core exercises Pelvic realignment exercises Comments Pt asks if she should engage core and PT ed no PT-OP-T Assessment and Plan Start: 10/09/20 15:32 Freq: Status: Active Protocol: Document 10/16/20 13:46 MB (Rec: 10/16/20 14:37 MB [id number]) Physical Therapy Assessment Rehab Potential Rehabilitation Potential Fair Evaluation Complexity Number of Personal Factors/Comorbidities 1-2 Number of Body Systems Impaired 1-2 Clinical Presentation at Evaluation Evolving Impairments Impairments Activity Tolerance,Balance, Functional Activities, Functional Mobility,Gait,Pain, Posture,ROM,Soft Tissue Mobility,Strength Other Impairments Pt denies paresthesisa. Personal factors include recent more sedentary lifestyle. Body systems affected include musculoskeletal and neuromuscular. Her clinical presentation is evolving in setting of progressive age, OP not being treated medically, stenosis (degenerative processes). Goals 5 Collection Systems Foreman Goal (LTG) Pt will perform progressive HEP with I including flexibility, core, body mechanics, strengthening and balance exercises to decrease pain and improve mobility by . LTG Duration 8 weeks 4 Residential Goal (LTG) Pt will gait train at least 1400 feet in 6 minutes to improve balance and pain with community ambulation by . LTG Duration 8 weeks 3 Collection Systems Foreman Goal (LTG) Pt will present with improved B hip flexion, abduction and knee extension strength to 5/5 B to improve functional activities and pain by 12/10/20 . LTG Duration 8 weeks 2 [employer] Systems Foreman Goal (LTG) Pt will present with an improved Oswestry LBP score to reflect no more than 10% impairment indicating improved back pain by 12/10/20. LTG Duration 8 weeks 1 Residential Goal (LTG) Pt will present with an improved LEF score to reflect no more than 25% impairment indicating improved function by 12/10/20. LTG Duration 8 weeks Assessment Summary Assessment Progressed core exercises today and pt performs well. Initiated Buteyko breathing today exercise 1 and diaphragm breathing and pt performs well. HR and O2 do not read on pulse ox today on many fingers left hand. Hand and fingers are warm. First rep 30 sec and pt's inhalation after CP is controlled and quiet. 2nd rep: 30 sec; 3rd rep 30 sec and pt feels relaxed with exercises. Physical Therapy Plan Frequency and Duration Frequency of Treatment 2x/Week Duration of Treatment 8 weeks Plan of Care Start Date 10/10/20 Plan of Care End Date 12/10/20 Therapeutic Interventions Therapeutic Interventions Aquatic Therapy,Balance Training,Canalithic Repositioning,Gait Training, Home Exercise Program,Joint Mobilizations,Manual Therapy, Neuromuscular Re-education, Patient/Caregiver Education, Self-Care/Home Management,Soft Tissue Mobilization, Therapeutic Activities, Therapeutic Exercises Modalities Cold Pack/Ice Massage,Hot Packs Next Visit Focus/Plan Next Note Type Treatment Note Next Visit Plan Progress hook lying shoulder and hip strengthening.
--- NOTE | 2020-10-18 09:47 | PT.OTN ---
Current Diagnoses Bilateral primary osteoarthritis of hip (10/18/20) Spinal stenosis, lumbar region without neurogenic claudication (10/18/20) Age-related osteoporosis without current pathological fracture (10/18/20) Physical Therapy Treatment Note PT-OP-A Visit Information Start: 10/09/20 15:32 Freq: Status: Active Protocol: Document 10/18/20 09:02 MB (Rec: 10/18/20 09:47 MB [id number]) Out-Patient Physical Therapy Visit Information Visit Information Visit Type Treatment Note Visit Note Medicare Premera Visit Start Time 09:02 Visit Stop Time 09:45 Total Visit Minutes 43 Visit Number 4 PT-OP-B Current Condition Start: 10/09/20 15:32 Freq: Status: Active Protocol: Document 10/10/20 08:57 MB (Rec: 10/10/20 09:17 MB [id number]) Current Condition History of Current Condition Onset Date Many years of LBP Current Complaints LBP that occ goes down the legs History of Current Condition Pt states that she has had LBP for many years. It has gotten worse over the last year that she thinks might be worse d/t lack of activity over COVID. Pt's last bone scan reported OP and she is not on any medication. Pt reports pretty much constant LBP that she rates as 4/10 and 3/10 right hip pain. Order from doctor B primary OA of the hip, spinal stenosis lumbar region without claudication, OP unspecified. Pt reports occ pinching pain that goes down both legs and across groin. She more often has pain going down the right leg. She was hoping to get another MRI of her back and her doctor would like for her to try PT first. Pt had PT in the past for LBP. She went to [facility] and did not connect with the people there. She went to another therapist on [address] and the pain did not get better. She still has her exercises. She has pain when she turns over in bed. Prior Treatments and Tests PT in the past that did not help. Treatment Goals Patient/Caregiver Goals To decrease pain and improve flexibility PT-OP-C Subjective Start: 10/09/20 15:32 Freq: Status: Active Protocol: Document 10/18/20 09:02 MB (Rec: 10/18/20 09:47 MB [id number]) OP-PT Subjective Patient Comments Patient Comments Pt states that she had to take her to the ED again and they admitted him. He was very anxious, pale and had a fever. She practiced breathing with her . She did her exercises yesterday. PT-OP-J Posture/Palpation/Skin Start: 10/09/20 15:32 Freq: Status: Active Protocol: Document 10/10/20 08:57 MB (Rec: 10/10/20 15:35 MB [id number]) Posture Evaluation Comments Posture Comments Dowager's hump, decreased thoracic kyphosis, right cervical SB and increased tension at right SCM attachment to SC joint, right shoulder lower than the left, right scapula lower than the left, left iliac crest higher than the right, left ankle overpronated. No noticeable lateral shift scoliosis in standing (may be appropriate for Spinomed IV brace in the future), some changes at lower cervical and upper thoracic vertebra C7-T2 area. Spinal movement comments: B thoracic rotation grossly similar in sitting, B SB with hands sliding down the outside of leg grossly similar and pt reports it feels more stiff on the left PT-OP-K Range of Motion Start: 10/09/20 15:32 Freq: Status: Active Protocol: Document 10/10/20 08:57 MB (Rec: 10/10/20 15:35 MB [id number]) Hip Goniometric Range of Motion Hip ROM Limitations Comments SLR right 60 deg and left 75 deg PT-OP-M Strength Start: 10/09/20 15:32 Freq: Status: Active Protocol: Document 10/10/20 08:57 MB (Rec: 10/10/20 15:35 MB [id number]) Hip Strength Hip Manual Muscle Testing Left Flexion (L2) 5 Normal Abduction 4 Good Adduction 4 Good Right Flexion (L2) 3+ Fair+ Abduction 3+ Fair+ Adduction 4 Good Knee Strength Knee Manual Muscle Testing Left Flexion (S2) 5 Normal Extension (L3) 5 Normal Right Flexion (S2) 4 Good Extension (L3) 5 Normal Ankle/Foot Strength Ankle and Foot Manual Muscle Testing Bilateral Dorsiflexion (L4) 5 Normal Plantarflexion (S1) 5 Normal Toe Strength Toe Manual Muscle Testing Right Great Toe Extension 5 Normal Left Great Toe Extension 5 Normal PT-OP-Q Treatments Start: 10/09/20 15:32 Freq: Status: Active Protocol: Document 10/18/20 09:02 MB (Rec: 10/18/20 09:47 MB [id number]) Manual Therapy Treatment Other Other Manual Treatments Pt agrees to Counterstrain to assess and treat fascial tension and she presents with tension in the following fascial systems: spinal meduallary LV, standard lymphatic row, ALL, LF and dura. PT treats stacks in ALL and LF and pt responds well to treatment. PT-OP-T Assessment and Plan Start: 10/09/20 15:32 Freq: Status: Active Protocol: Document 10/18/20 09:02 MB (Rec: 10/18/20 09:47 MB [id number]) Physical Therapy Assessment Rehab Potential Rehabilitation Potential Fair Evaluation Complexity Number of Personal Factors/Comorbidities 1-2 Number of Body Systems Impaired 1-2 Clinical Presentation at Evaluation Evolving Impairments Impairments Activity Tolerance,Balance, Functional Activities, Functional Mobility,Gait,Pain, Posture,ROM,Soft Tissue Mobility,Strength Other Impairments Pt denies paresthesisa. Personal factors include recent more sedentary lifestyle. Body systems affected include musculoskeletal and neuromuscular. Her clinical presentation is evolving in setting of progressive age, OP not being treated medically, stenosis (degenerative processes). Goals 5 Long-Term Goal (LTG) Pt will perform progressive HEP with I including flexibility, core, body mechanics, strengthening and balance exercises to decrease pain and improve mobility by . LTG Duration 8 weeks 4 State Editor Goal (LTG) Pt will gait train at least 1400 feet in 6 minutes to improve balance and pain with community ambulation by . LTG Duration 8 weeks 3 State Editor Goal (LTG) Pt will present with improved B hip flexion, abduction and knee extension strength to 5/5 B to improve functional activities and pain by 12/10/20 . LTG Duration 8 weeks 2 Long-Term Goal (LTG) Pt will present with an improved Oswestry LBP score to reflect no more than 10% impairment indicating improved back pain by 12/10/20. LTG Duration 8 weeks 1 Long-Term Goal (LTG) Pt will present with an improved LEF score to reflect no more than 25% impairment indicating improved function by 12/10/20. LTG Duration 8 weeks Assessment Summary Assessment Pt with significant increased stress this week with taking her to the ED x3. She is still doing her exercises despite these. Counterstrain today to assess fascial tension and pt responds well to treatment. Physical Therapy Plan Frequency and Duration Frequency of Treatment 2x/Week Duration of Treatment 8 weeks Plan of Care Start Date 10/10/20 Plan of Care End Date 12/10/20 Therapeutic Interventions Therapeutic Interventions Aquatic Therapy,Balance Training,Canalithic Repositioning,Gait Training, Home Exercise Program,Joint Mobilizations,Manual Therapy, Neuromuscular Re-education, Patient/Caregiver Education, Self-Care/Home Management,Soft Tissue Mobilization, Therapeutic Activities, Therapeutic Exercises Modalities Cold Pack/Ice Massage,Hot Packs Next Visit Focus/Plan Next Note Type Treatment Note Next Visit Plan Monitor response to Counterstrain. Progress hook lying shoulder and hip strengthening.
--- NOTE | 2020-10-26 13:45 | PT-OP ANOTE ---
Pt cancelled today's appt just prior to appt time, had an emergency eye appt.
--- NOTE | 2020-10-29 08:59 | PT.OTN ---
Current Diagnoses Bilateral primary osteoarthritis of hip (10/29/20) Spinal stenosis, lumbar region without neurogenic claudication (10/29/20) Age-related osteoporosis without current pathological fracture (10/29/20) Physical Therapy Treatment Note PT-OP-A Visit Information Start: 10/09/20 15:32 Freq: Status: Active Protocol: Document 10/29/20 08:17 MB (Rec: 10/29/20 08:59 MB [id number]) Out-Patient Physical Therapy Visit Information Visit Information Visit Type Treatment Note Visit Note Medicare Premera Visit Start Time 08:17 Visit Stop Time 08:58 Total Visit Minutes 40 Visit Number 5 PT-OP-B Current Condition Start: 10/09/20 15:32 Freq: Status: Active Protocol: Document 10/10/20 08:57 MB (Rec: 10/10/20 09:17 MB [id number]) Current Condition History of Current Condition Onset Date Many years of LBP Current Complaints LBP that occ goes down the legs History of Current Condition Pt states that she has had LBP for many years. It has gotten worse over the last year that she thinks might be worse d/t lack of activity over COVID. Pt's last bone scan reported OP and she is not on any medication. Pt reports pretty much constant LBP that she rates as 4/10 and 3/10 right hip pain. Order from doctor B primary OA of the hip, spinal stenosis lumbar region without claudication, OP unspecified. Pt reports occ pinching pain that goes down both legs and across groin. She more often has pain going down the right leg. She was hoping to get another MRI of her back and her doctor would like for her to try PT first. Pt had PT in the past for LBP. She went to [facility] and did not connect with the people there. She went to another therapist on [address] and the pain did not get better. She still has her exercises. She has pain when she turns over in bed. Prior Treatments and Tests PT in the past that did not help. Treatment Goals Patient/Caregiver Goals To decrease pain and improve flexibility PT-OP-C Subjective Start: 10/09/20 15:32 Freq: Status: Active Protocol: Document 10/29/20 08:17 MB (Rec: 10/29/20 08:59 MB [id number]) OP-PT Subjective Patient Comments Patient Comments Pt's was air lifted to [facility]. He was in the hospital for 7 days and is now home. She has to take care of his many drains and they are not sleeping well. He is getting IV antibiotics. She would like to do treatment today. PT-OP-J Posture/Palpation/Skin Start: 10/09/20 15:32 Freq: Status: Active Protocol: Document 10/10/20 08:57 MB (Rec: 10/10/20 15:35 MB [id number]) Posture Evaluation Comments Posture Comments Dowager's hump, decreased thoracic kyphosis, right cervical SB and increased tension at right SCM attachment to SC joint, right shoulder lower than the left, right scapula lower than the left, left iliac crest higher than the right, left ankle overpronated. No noticeable lateral shift scoliosis in standing (may be appropriate for Spinomed IV brace in the future), some changes at lower cervical and upper thoracic vertebra C7-T2 area. Spinal movement comments: B thoracic rotation grossly similar in sitting, B SB with hands sliding down the outside of leg grossly similar and pt reports it feels more stiff on the left PT-OP-K Range of Motion Start: 10/09/20 15:32 Freq: Status: Active Protocol: Document 10/10/20 08:57 MB (Rec: 10/10/20 15:35 MB [id number]) Hip Goniometric Range of Motion Hip ROM Limitations Comments SLR right 60 deg and left 75 deg PT-OP-M Strength Start: 10/09/20 15:32 Freq: Status: Active Protocol: Document 10/10/20 08:57 MB (Rec: 10/10/20 15:35 MB [id number]) Hip Strength Hip Manual Muscle Testing Left Flexion (L2) 5 Normal Abduction 4 Good Adduction 4 Good Right Flexion (L2) 3+ Fair+ Abduction 3+ Fair+ Adduction 4 Good Knee Strength Knee Manual Muscle Testing Left Flexion (S2) 5 Normal Extension (L3) 5 Normal Right Flexion (S2) 4 Good Extension (L3) 5 Normal Ankle/Foot Strength Ankle and Foot Manual Muscle Testing Bilateral Dorsiflexion (L4) 5 Normal Plantarflexion (S1) 5 Normal Toe Strength Toe Manual Muscle Testing Right Great Toe Extension 5 Normal Left Great Toe Extension 5 Normal PT-OP-Q Treatments Start: 10/09/20 15:32 Freq: Status: Active Protocol: Document 07/19/21 08:17 MB (Rec: 10/29/20 08:59 MB [id number]) Manual Therapy Treatment Other Other Manual Treatments Pt agrees to Counterstrain to assess and treat fascial tension and she presents with tension in the following fascial systems: spinal vein extension, spinal medullary and standard lymphatic row. PT treats stacks in spinal vein extension and spinal medullary and scan improves PT-OP-T Assessment and Plan Start: 10/09/20 15:32 Freq: Status: Active Protocol: Document 10/29/20 08:17 MB (Rec: 10/29/20 08:59 MB [id number]) Physical Therapy Assessment Rehab Potential Rehabilitation Potential Fair Evaluation Complexity Number of Personal Factors/Comorbidities 1-2 Number of Body Systems Impaired 1-2 Clinical Presentation at Evaluation Evolving Impairments Impairments Activity Tolerance,Balance, Functional Activities, Functional Mobility,Gait,Pain, Posture,ROM,Soft Tissue Mobility,Strength Other Impairments Pt denies paresthesisa. Personal factors include recent more sedentary lifestyle. Body systems affected include musculoskeletal and neuromuscular. Her clinical presentation is evolving in setting of progressive age, OP not being treated medically, stenosis (degenerative processes). Goals 5 [facility]ci Goal (LTG) Pt will perform progressive HEP with I including flexibility, core, body mechanics, strengthening and balance exercises to decrease pain and improve mobility by . LTG Duration 8 weeks 4 Recruitment Manager Goal (LTG) Pt will gait train at least 1400 feet in 6 minutes to improve balance and pain with community ambulation by . LTG Duration 8 weeks 3 Recruitment Manager Goal (LTG) Pt will present with improved B hip flexion, abduction and knee extension strength to 5/5 B to improve functional activities and pain by 12/10/20 . LTG Duration 8 weeks 2 Fci Goal (LTG) Pt will present with an improved Oswestry LBP score to reflect no more than 10% impairment indicating improved back pain by 12/10/20. LTG Duration 8 weeks 1 Fci Goal (LTG) Pt will present with an improved LEF score to reflect no more than 25% impairment indicating improved function by 12/10/20. LTG Duration 8 weeks Assessment Summary Assessment Pt is having to take care of her including wound care, drains and IV. Home health nsg is not coming today . She is getting little sleep. She would like to cancel the rest of October appointments and PT is in agreement. She hopes she will be able to get more sleep and get her more settled. She will con't with Buteyko breathing exercises and do other exercises as able . Pt states that Counterstrain was very helpful and so performed again this date. Physical Therapy Plan Frequency and Duration Frequency of Treatment 2x/Week Duration of Treatment 8 weeks Plan of Care Start Date 10/10/20 Plan of Care End Date 12/10/20 Therapeutic Interventions Therapeutic Interventions Aquatic Therapy,Balance Training,Canalithic Repositioning,Gait Training, Home Exercise Program,Joint Mobilizations,Manual Therapy, Neuromuscular Re-education, Patient/Caregiver Education, Self-Care/Home Management,Soft Tissue Mobilization, Therapeutic Activities, Therapeutic Exercises Modalities Cold Pack/Ice Massage,Hot Packs Next Visit Focus/Plan Next Note Type Treatment Note Next Visit Plan Ongoing Counterstrain. Progress hook lying shoulder and hip strengthening.
--- NOTE | 2020-11-16 13:42 | PT.OTN ---
Current Diagnoses Bilateral primary osteoarthritis of hip (11/16/20) Spinal stenosis, lumbar region without neurogenic claudication (11/16/20) Age-related osteoporosis without current pathological fracture (11/16/20) Physical Therapy Treatment Note PT-OP-A Visit Information Start: 10/09/20 15:32 Freq: Status: Active Protocol: Document 11/16/20 13:02 MB (Rec: 11/16/20 13:41 MB [id number]) Out-Patient Physical Therapy Visit Information Visit Information Visit Type Treatment Note Visit Note Medicare [employer] 09/29 before KX modifier Visit Start Time 13:02 Visit Stop Time 13:40 Total Visit Minutes 38 Visit Number 6 PT-OP-B Current Condition Start: 10/09/20 15:32 Freq: Status: Active Protocol: Document 10/10/20 08:57 MB (Rec: 10/10/20 09:17 MB [id number]) Current Condition History of Current Condition Onset Date Many years of LBP Current Complaints LBP that occ goes down the legs History of Current Condition Pt states that she has had LBP for many years. It has gotten worse over the last year that she thinks might be worse d/t lack of activity over COVID. Pt's last bone scan reported OP and she is not on any medication. Pt reports pretty much constant LBP that she rates as 4/10 and 3/10 right hip pain. Order from doctor B primary OA of the hip, spinal stenosis lumbar region without claudication, OP unspecified. Pt reports occ pinching pain that goes down both legs and across groin. She more often has pain going down the right leg. She was hoping to get another MRI of her back and her doctor would like for her to try PT first. Pt had PT in the past for LBP. She went to [facility] and did not connect with the people there. She went to another therapist on [facility] and the pain did not get better. She still has her exercises. She has pain when she turns over in bed. Prior Treatments and Tests PT in the past that did not help. Treatment Goals Patient/Caregiver Goals To decrease pain and improve flexibility PT-OP-C Subjective Start: 10/09/20 15:32 Freq: Status: Active Protocol: Document 11/16/20 13:02 MB (Rec: 11/16/20 13:41 MB [id number]) OP-PT Subjective Patient Comments Patient Comments Events with pt's have con't to be very stressful and she had to take him back to Urgent Care yesterday. They were in [place] for 7 hours. PT-OP-J Posture/Palpation/Skin Start: 10/09/20 15:32 Freq: Status: Active Protocol: Document 10/10/20 08:57 MB (Rec: 10/10/20 15:35 MB [id number]) Posture Evaluation Comments Posture Comments Dowager's hump, decreased thoracic kyphosis, right cervical SB and increased tension at right SCM attachment to SC joint, right shoulder lower than the left, right scapula lower than the left, left iliac crest higher than the right, left ankle overpronated. No noticeable lateral shift scoliosis in standing (may be appropriate for Spinomed IV brace in the future), some changes at lower cervical and upper thoracic vertebra C7-T2 area. Spinal movement comments: B thoracic rotation grossly similar in sitting, B SB with hands sliding down the outside of leg grossly similar and pt reports it feels more stiff on the left PT-OP-K Range of Motion Start: 10/09/20 15:32 Freq: Status: Active Protocol: Document 10/10/20 08:57 MB (Rec: 10/10/20 15:35 MB [id number]) Hip Goniometric Range of Motion Hip ROM Limitations Comments SLR right 60 deg and left 75 deg PT-OP-M Strength Start: 10/09/20 15:32 Freq: Status: Active Protocol: Document 10/10/20 08:57 MB (Rec: 10/10/20 15:35 MB [id number]) Hip Strength Hip Manual Muscle Testing Left Flexion (L2) 5 Normal Abduction 4 Good Adduction 4 Good Right Flexion (L2) 3+ Fair+ Abduction 3+ Fair+ Adduction 4 Good Knee Strength Knee Manual Muscle Testing Left Flexion (S2) 5 Normal Extension (L3) 5 Normal Right Flexion (S2) 4 Good Extension (L3) 5 Normal Ankle/Foot Strength Ankle and Foot Manual Muscle Testing Bilateral Dorsiflexion (L4) 5 Normal Plantarflexion (S1) 5 Normal Toe Strength Toe Manual Muscle Testing Right Great Toe Extension 5 Normal Left Great Toe Extension 5 Normal PT-OP-Q Treatments Start: 10/09/20 15:32 Freq: Status: Active Protocol: Document 11/16/20 13:02 MB (Rec: 11/16/20 13:41 MB [id number]) Therapeutic Exercises Supine Exercises Buteyko breathing Supine Exercise Name Cues for nasal breathing for all exercises Pect stretch Side bilateral Comments 45 sec hold, knees bent, nasal breathing with it Core progression Supine Exercise Name Abdominal drawing in, knee rocking, HS, mini march, knee fall out Anterior hip stretch Side bilateral Comments Straight leg stretched out, quad set Hamstring stretch with AP Side bilateral Comments 30 AP each leg Happy baby Side bilateral Comments 45 sec hold Pelvic realignment exercises Side bilateral Comments 5 rep, 3 sec hold all exercises PT-OP-T Assessment and Plan Start: 10/09/20 15:32 Freq: Status: Active Protocol: Document 11/16/20 13:02 MB (Rec: 11/16/20 13:41 MB [id number]) Physical Therapy Assessment Rehab Potential Rehabilitation Potential Fair Evaluation Complexity Number of Personal Factors/Comorbidities 1-2 Number of Body Systems Impaired 1-2 Clinical Presentation at Evaluation Evolving Impairments Impairments Activity Tolerance,Balance, Functional Activities, Functional Mobility,Gait,Pain, Posture,ROM,Soft Tissue Mobility,Strength Other Impairments Pt denies paresthesisa. Personal factors include recent more sedentary lifestyle. Body systems affected include musculoskeletal and neuromuscular. Her clinical presentation is evolving in setting of progressive age, OP not being treated medically, stenosis (degenerative processes). Goals 5 Senior Care Goal (LTG) Pt will perform progressive HEP with I including flexibility, core, body mechanics, strengthening and balance exercises to decrease pain and improve mobility by . LTG Duration Met 4 Senior Care Goal (LTG) Pt will gait train at least 1400 feet in 6 minutes to improve balance and pain with community ambulation by . LTG Duration 8 weeks 3 Banding Machine Operator Goal (LTG) Pt will present with improved B hip flexion, abduction and knee extension strength to 5/5 B to improve functional activities and pain by 12/10/20 . LTG Duration 8 weeks 2 Banding Machine Operator Goal (LTG) Pt will present with an improved Oswestry LBP score to reflect no more than 10% impairment indicating improved back pain by 12/10/20. LTG Duration 8 weeks 1 Banding Machine Operator Goal (LTG) Pt will present with an improved LEF score to reflect no more than 25% impairment indicating improved function by 12/10/20. LTG Duration 8 weeks Assessment Summary Assessment Pt is having to take care of her with his many lines and bags and doctor appointments at this time and she needs to d/c PT. Reviewed exercises and she will con't at home. Will d/c PT and she will call doctor for another order when she is able to participate with PT. Did ed pt to have neighbors be emergency contact so that she can get out of the house 1-2 hours a day to exercise or do something relaxing for herself . Physical Therapy Plan Frequency and Duration Frequency of Treatment 2x/Week Duration of Treatment 8 weeks Plan of Care Start Date 10/10/20 Plan of Care End Date 12/10/20 Therapeutic Interventions Therapeutic Interventions Aquatic Therapy,Balance Training,Canalithic Repositioning,Gait Training, Home Exercise Program,Joint Mobilizations,Manual Therapy, Neuromuscular Re-education, Patient/Caregiver Education, Self-Care/Home Management,Soft Tissue Mobilization, Therapeutic Activities, Therapeutic Exercises Modalities Cold Pack/Ice Massage,Hot Packs
== END 2020-11-19 10:00 | disposition home or self-care (01) ==
LOC: PHYS 13:00
PROVIDERS: PCP Family Medicine; Referring Provider Physical Medicine & Rehabilitation; Visit Provider Physical Medicine & Rehabilitation
DX: M16.0 Bilateral primary osteoarthritis of hip (principal); M48.061 Spinal stenosis, lumbar region without neurogenic claudication; M81.0 Age-related osteoporosis without current pathological fracture
CPT/HCPCS: 97110; 97140; 97161; 97535

== ENCOUNTER → 2021-01-21 07:30 | Outpatient (CLI) | payer MEDICARE, OTHER, SELFPAY ==
[2021-01-21 08:26] LABS: Alanine Aminotransferase 25 IU/L (<35); Albumin Globulin Ratio 1.2 (1.0-2.8); Alkaline Phosphatase 71 U/L (38-126); Aspartate Aminotransferase 27 IU/L (14-36); BUN Creatinine Ratio 23.5 (6-22); Bilirubin Total 0.7 mg/dL (0.2-1.3); Blood Urea Nitrogen 23 mg/dL (7-17); Calcium 9.5 mg/dL (8.4-10.2); Carbon Dioxide 31 mmol/L (22-32); Chloride 106 mmol/L (98-107); Cholesterol 132 mg/dL (140-199); Estimated Glomerular Filt Rate 55.5 mL/min (>60); Globulin 3.3 g/dL (1.7-4.1); Glucose 105 mg/dL (80-110); HDL Cholesterol 53 mg/dL (40-60); HEMOLYSIS < 15 (0-50); LDL Cholesterol Calculated 59 mg/dL (<100); Potassium 4.3 mmol/L (3.4-5.1); Sodium 142 mmol/L (137-145); Total Protein 7.3 g/dL (6.3-8.2); Triglycerides 101 mg/dL (35-150)
== END ==
PROVIDERS: PCP Family Medicine; Referring Provider Family Medicine; Visit Provider Family Medicine
DX: E78.5 Hyperlipidemia, unspecified (principal)
CPT/HCPCS: 36415; 80053; 80061

== ENCOUNTER → 2021-02-01 07:40 | Outpatient (CLI) | payer MEDICARE, OTHER, SELFPAY ==
[2021-02-01 09:42] LABS: Appearance Urine UA CLEAR; Bilirubin Urine UA NEGATIVE (NEGATIVE); Color Urine UA YELLOW; Glucose Urine UA NEGATIVE (Negative); Ketones Urine UA NEGATIVE (NEGATIVE); Leukocyte Esterase Urine UA NEGATIVE (NEGATIVE); Nitrite Urine UA NEGATIVE (Negative); Occult Blood Urine UA NEGATIVE (Negative); Protein Urine UA NEGATIVE (Negative); Specific Gravity Urine UA 1.015 (1.000-1.035); Urobilinogen Urine UA 0.2 E.U./dL (0.2)
[2021-02-01 09:43] LABS: pH Urine UA 6.5 (4.5-8.0)
[2021-02-01 10:28] LABS: Creatinine Urine Random 114.8 mg/dL
[2021-02-01 10:32] LABS: Microalbumi Creatinin Ratio Ur 6.9 ug/mg CR (<30); Microalbumin Urine Random 0.8 mg/dL (0-1.6)
[2021-02-01 10:50] LABS: Bacteria Urine None Seen; Culture Indicated Urine Cult Not Indicated; RBC Urine None Seen (0-5/HPF); WBC Urine None Seen (0-5/HPF)
== END ==
PROVIDERS: PCP Family Medicine; Referring Provider Family Medicine; Visit Provider Family Medicine
DX: R89.9 Unspecified abnormal finding in specimens from other organs, systems and tissues (principal)
CPT/HCPCS: 81001; 82043; 82570

== ENCOUNTER → 2021-02-19 14:13 | Outpatient (CLI) | payer MEDICARE, OTHER, SELFPAY ==
[2021-02-19 15:13] LABS: Appearance Urine UA CLEAR; Bilirubin Urine UA NEGATIVE (NEGATIVE); Color Urine UA YELLOW; Glucose Urine UA NEGATIVE (Negative); Ketones Urine UA NEGATIVE (NEGATIVE); Leukocyte Esterase Urine UA NEGATIVE (NEGATIVE); Nitrite Urine UA NEGATIVE (Negative); Occult Blood Urine UA TRACE-INTACT (Negative); Protein Urine UA NEGATIVE (Negative); Urobilinogen Urine UA 0.2 E.U./dL (0.2)
[2021-02-19 15:34] LABS: pH Urine UA 6.5 (4.5-8.0)
[2021-02-19 15:58] LABS: Bacteria Urine None Seen; Culture Indicated Urine Cult Not Indicated; RBC Urine 0-1/HPF (0-5/HPF); WBC Urine None Seen (0-5/HPF)
== END ==
PROVIDERS: PCP Family Medicine; Referring Provider Nurse Practitioner Family; Visit Provider Nurse Practitioner Family
DX: M54.50 Low back pain, unspecified (principal)
CPT/HCPCS: 81001

== ENCOUNTER 2021-03-19 10:26 | Outpatient (RCR) | payer MEDICARE, OTHER, SELFPAY ==
--- NOTE | 2021-03-19 15:34 | PT.OIE ---
Current Diagnoses Low back pain, unspecified (03/19/21) Past Medical History (Last Updated 02/19/21 @ 11:30 by RISSA Martínez) Lumbago Visit Care Team Role Provider Type Fely Bailey MD Family Provider Non-Staff Primary Care Provider Specialty: Family Practice Address: [address] [place] [address], [phone] Email: RISSA Martínez Attending Provider Advanced Windows System Admin Referring Provider Specialty: Family Practice Address: [address] [place] [address], [id number] Email: [email or web address] Physical Therapy Initial Evaluation PT-OP-A Visit Information Start: 03/12/21 14:52 Freq: Status: Active Protocol: Document 03/19/21 10:32 MB (Rec: 03/19/21 10:48 MB [id number]) Out-Patient Physical Therapy Visit Information Visit Information Visit Type Initial Evaluation Visit Note Medicare 10/29 before KX for 2020 Visit Start Time 10:32 Visit Stop Time 11:15 Total Visit Minutes 43 Visit Number 1 Evaluation Information Evaluation Date 03/19/21 Precautions Precautions Pt with OP PT-OP-B Current Condition Start: 03/12/21 14:52 Freq: Status: Active Protocol: Document 03/19/21 10:32 MB (Rec: 03/19/21 10:48 MB [id number]) Current Condition History of Current Condition Onset Date Acute pain since Feb 2021, history of back pain Current Complaints LBP that occ radiates to the buttocks and down the right leg History of Current Condition Pt reports a strain in her LB that occurred in the beginning of February. She ordered a cushion to lie on that had acupressure points and she laid on it for 15 minutes and then had really bad pain the next date. She tried a muscle relaxor and pain medication and stopped taking them after reacting poorly to them. She did rub a topical on it and takes Tylenol. The topical and Tylenol did help. Her con't with medical complications and doctors appointments. PMH includes OP and PT earlier in the year at this clinic with this PT that was stopped d/t her having to take her to many doctors appointments and perform a lot of nursing-type care for him. Pt saw her search manager last week and he put her on some BP medication. She has a history of PVC and pre-atrial contractions. Pt reports headaches in her frontal area and they start during the day. She has stress with her brother. 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 He is in his house at [place] and has memory issues. He may need a memory care facility. Pt reports 5/10 pain in her LB that radiates to her buttocks . It starts right where the acupressure pillow was. The pain shot down the back of her right leg yesterday. The pain is keeping her from doing tasks like making the bed and being in one position for any amount of time is troublesome. She is going to see Dr. Oscar, orthopedist, Mar 25. Treatment Goals Patient/Caregiver Goals To decrease pain PT-OP-C Subjective Start: 03/12/21 14:52 Freq: Status: Active Protocol: Document 03/19/21 10:32 MB (Rec: 03/19/21 10:48 MB [id number]) OP-PT Subjective Patient Comments Patient Comments See history of current condition Patient Questionnaires Oswestry Low Back Index Oswestry Score 14 Oswestry Impairment 20 to 39% Impaired (Score 20- 39) PT-OP-J Posture/Palpation/Skin Start: 03/12/21 14:52 Freq: Status: Active Protocol: Document 03/19/21 10:32 MB (Rec: 03/19/21 15:34 MB [id number]) Posture Evaluation Comments Posture Comments Standing with shoes off: mild Dowager's hump, forward shoulders B, anterior tilt pelvis, B knee flexion, left shoulder, scapula and SC joint higher than the right, head rests in slight SB to the right, mild left thoracic kyphosis, right iliac crest higher than the left, overpronation B ankles. PT-OP-K Range of Motion Start: 03/12/21 14:52 Freq: Status: Active Protocol: Document 03/19/21 10:32 MB (Rec: 03/19/21 15:34 MB [id number]) Lumbar Spine Range of Motion Lumbar Spine Active Comments Forward flexion and extension in standing deferred d/t pain/ injury and pt with history of OP. She states that flexion is the most problematic B Slump Test negative PT-OP-M Strength Start: 03/12/21 14:52 Freq: Status: Active Protocol: Document 03/19/21 10:32 MB (Rec: 03/19/21 15:34 MB [id number]) Hip Strength Hip Manual Muscle Testing Left Flexion (L2) 3+ Fair+ Abduction 4 Good Adduction 3+ Fair+ Comments Testing in supine Right Flexion (L2) 4 Good Abduction 3+ Fair+ Adduction 3+ Fair+ Comments Testing in supine Knee Strength Knee Manual Muscle Testing Left Flexion (S2) 4 Good Extension (L3) 5 Normal Right Flexion (S2) 4 Good Extension (L3) 5 Normal Ankle/Foot Strength Ankle and Foot Manual Muscle Testing Left Dorsiflexion (L4) 5 Normal Right Dorsiflexion (L4) 5 Normal Toe Strength Toe Manual Muscle Testing Left Great Toe Extension 5 Normal Right Great Toe Extension 5 Normal PT-OP-Q Treatments Start: 03/12/21 14:52 Freq: Status: Active Protocol: Document 03/19/21 10:32 MB (Rec: 03/19/21 15:34 MB [id number]) Self-Care/Home Management Treatment Education Patient Education Body Mechanics,Home Exercise Program,Joint Protection,Pain Management,Posture,Safety Other Education Pt reports she has all handouts from previous PT course and she will bring in next visit. She asks about happy baby and so performed today and it increased pain with LB with weight shift to spine and with getting out of position so ed pt not to do it or other exercises until practiced with PT. Did clear PT to con't Buteyko breathing, proper sleeping position with pillow support between legs and arms, cervical support and heat, re-ed in log roll to get on an off plinth PT-OP-T Assessment and Plan Start: 03/12/21 14:52 Freq: Status: Active Protocol: Document 03/19/21 10:32 MB (Rec: 03/19/21 15:34 MB [id number]) Physical Therapy Assessment Rehab Potential Rehabilitation Potential Fair Evaluation Complexity Number of Personal Factors/Comorbidities 1-2 Number of Body Systems Impaired 1-2 Clinical Presentation at Evaluation Evolving Impairments Impairments Activity Tolerance,Balance, Functional Activities, Functional Mobility,Gait,Pain, Posture,ROM,Sensation,Soft Tissue Mobility,Strength, Transfers Other Impairments Personal factors include pt must care for her and provide support for her brother. Body systems affected include musculoskeletal and neuromuscular. Her clinical presentation is evolving. Other Concerns Fall Risk Yes Age Related Concerns Yes, concern for compression fracture Goals 4 Process Automation Engineer Goal (LTG) Pt will perform progressive HEP with I including flexibility, pelvic realignment, postural, strengthening, balance and relaxation exercises to improve pain and function by . LTG Duration 8 weeks 3 Skilled Nursing Goal (LTG) Pt will gait train at least 1400 feet in 6 minutes without AD to improve community ambulation by 05/20/21. LTG Duration 8 weeks 2 Skilled Nursing Goal (LTG) Pt will present with improved B hip and knee strength to at least 4/5 hip abduction and adduction and 5/5 knee flexion to improve functional transfers by 05/20/21. LTG Duration 8 weeks 1 Skilled Nursing Goal (LTG) Pt will report a 50% improvement in LBP with sleeping and activity to improve quality of life and function by 05/20/21. LTG Duration 8 weeks Assessment Summary Assessment Pt is a 75 y/o female known to this PT from PT earlier in the year that was stopped d/t her needing to care for her who had many medical appointments and needs. He is doing somewhat better. She does have to provide some support for her brother as well now and this causes increase stress and burden. A month ago, she had low back pain after using an acupressure pillow. She points to T12-L5 and into right sacral area. Her pain presentation is acute and localized compared to previous PT course. PT is concerned about possible underlying injury in setting of OP. Today , PT limits active lumbar flexion and extension d/t unknown anatomical status. She presents with negative B Slump Test today and does report sciatic pain that goes down the back of the right leg and tingling into the calf yesterday. She presents with B hip and knee weakness and postural changes. She sees orthopedist, Dr. Nish Kinsey, next week. PT recommends diagnostics given increased pain after injury in setting of OP. Pt may possibly benefit from a Spinomed IV brace which has been shown to support osteoporotic spines and encourage core recruitment . A provider will have to write an order for it and PT can further discuss with pt and send to product craftsman. She will benefit from PT as her spine is deemed stable to improve strength, flexibility, and balance. Barriers include life stressors, OP and chronic back trouble. Physical Therapy Plan Frequency and Duration Frequency of Treatment 2x/Week Duration of Treatment 8 weeks Plan of Care Start Date 03/19/21 Plan of Care End Date 05/20/21 Therapeutic Interventions Therapeutic Interventions Aquatic Therapy,Balance Training,Canalithic Repositioning,Gait Training, Home Exercise Program,Manual Therapy,Neuromuscular Re- education,Orthotic/Prosthetic Management,Patient/Caregiver Education,Self-Care/Home Management,Soft Tissue Mobilization,Taping, Therapeutic Activities, Therapeutic Exercises Modalities Cold Pack/Ice Massage,Hot Packs Next Visit Focus/Plan Next Note Type Treatment Note Next Visit Plan Look at her previous HEP exercises, restart pelvic realignment exercises
--- NOTE | 2021-03-19 15:35 | PT.OPPOC ---
Physical, Occupational & Speech Therapy At [facility] Current Diagnoses Low back pain, unspecified (03/19/21) Visit Care Team Role Provider Type Fely Bailey MD Family Provider Non-Staff Primary Care Provider Specialty: Family Practice Address: [address] [place] [address], [phone] Email: RISSA Martínez Attending Provider Advanced Recreation Instructor Referring Provider Specialty: Family Practice Address: [address] [place] [address], [phone] Email: [email or web address] Plan Of Care PT-OP-T Assessment and Plan Start: 03/12/21 14:52 Freq: Status: Active Protocol: Document 03/19/21 10:32 MB (Rec: 03/19/21 15:34 MB [id number]) Physical Therapy Assessment Rehab Potential Rehabilitation Potential Fair Evaluation Complexity Number of Personal Factors/Comorbidities 1-2 Number of Body Systems Impaired 1-2 Clinical Presentation at Evaluation Evolving Impairments Impairments Activity Tolerance,Balance, Functional Activities, Functional Mobility,Gait,Pain, Posture,ROM,Sensation,Soft Tissue Mobility,Strength, Transfers Other Impairments Personal factors include pt must care for her and provide support for her brother. Body systems affected include musculoskeletal and neuromuscular. Her clinical presentation is evolving. Other Concerns Fall Risk Yes Age Related Concerns Yes, concern for compression fracture Goals 4 Shelter Goal (LTG) Pt will perform progressive HEP with I including flexibility, pelvic realignment, postural, strengthening, balance and relaxation exercises to improve pain and function by . LTG Duration 8 weeks 3 Vice President Of Finance Goal (LTG) Pt will gait train at least 1400 feet in 6 minutes without AD to improve community ambulation by 05/20/21. LTG Duration 8 weeks 2 Vice President Of Finance Goal (LTG) Pt will present with improved B hip and knee strength to at least 4/5 hip abduction and adduction and 5/5 knee flexion to improve functional transfers by 05/20/21. LTG Duration 8 weeks 1 Shelter Goal (LTG) Pt will report a 50% improvement in LBP with sleeping and activity to improve quality of life and function by 05/20/21. LTG Duration 8 weeks Assessment Summary Assessment Pt is a 75 y/o female known to this PT from PT earlier in the year that was stopped d/t her needing to care for her who had many medical appointments and needs. He is doing somewhat better. She does have to provide some support for her brother as well now and this causes increase stress and burden. A month ago, she had low back pain after using an acupressure pillow. She points to T12-L5 and into right sacral area. Her pain presentation is acute and localized compared to previous PT course. PT is concerned about possible underlying injury in setting of OP. Today , PT limits active lumbar flexion and extension d/t unknown anatomical status. She presents with negative B Slump Test today and does report sciatic pain that goes down the back of the right leg and tingling into the calf yesterday. She presents with B hip and knee weakness and postural changes. She sees orthopedist, Dr. Nish Kinsey, next week. PT recommends diagnostics given increased pain after injury in setting of OP. Pt may possibly benefit from a Spinomed IV brace which has been shown to support osteoporotic spines and encourage core recruitment . A provider will have to write an order for it and PT can further discuss with pt and send to computer drafter. She will benefit from PT as her spine is deemed stable to improve strength, flexibility, and balance. Barriers include life stressors, OP and chronic back trouble. Physical Therapy Plan Frequency and Duration Frequency of Treatment 2x/Week Duration of Treatment 8 weeks Plan of Care Start Date 03/19/21 Plan of Care End Date 05/20/21 Therapeutic Interventions Therapeutic Interventions Aquatic Therapy,Balance Training,Canalithic Repositioning,Gait Training, Home Exercise Program,Manual Therapy,Neuromuscular Re- education,Orthotic/Prosthetic Management,Patient/Caregiver Education,Self-Care/Home Management,Soft Tissue Mobilization,Taping, Therapeutic Activities, Therapeutic Exercises Modalities Cold Pack/Ice Massage,Hot Packs Next Visit Focus/Plan Next Note Type Treatment Note Next Visit Plan Look at her previous HEP exercises, restart pelvic realignment exercises Plan of Care Dates Plan of Care Start Date 03/19/21 Plan of Care End Date 05/20/21 Electronically Signed by: Elle Finney, PT 03/19/21 2427 Please Sign and Return: I have reviewed this Plan of Care and certify that the skilled therapy services above are required to meet the patient?s needs. Physician Signature Date Printed Name and Credentials Clinical Instructor Signature Printed Name and Credentials
--- NOTE | 2021-03-26 14:01 | PT-OP ANOTE ---
Pt calls and states that she saw Dr. Kinsey who ran an x-ray and she was found to have T12 compression fracture. She was given a wrap around brace that was billed to Medicare even though she requested referral for Spinomed IV brace. She states that she is to follow-up with Dr. Kinsey in three weeks and canceled PT until April 18. She does not have her follow-up appointment with him yet. She looked at Spinomed IV braces online and would like to get one. PT recommends she [place] in with flight coordinator about fitting and knowing that she can't bill Medicare for a second brace. She told PCP findings and has referral about getting set-up with osteoporosis medication. PT suspected compression fracture and so will keep case open and con't with Blanca Stephen type PT plan after she follows up with orthopedist.
--- NOTE | 2021-04-29 07:23 | PT.OPDS ---
Current Diagnoses Low back pain, unspecified (03/19/21) Visit Care Team Role Provider Type Fely Bailey MD Family Provider Non-Staff Primary Care Provider Specialty: Family Practice Address: [address] [place] [address], [id number] Email: RISSA Martínez Attending Provider Advanced Associate Professor Of Engineering Referring Provider Specialty: Family Practice Address: [address] [place] [address], [id number] Email: [email or web address] Visit Number Visit Number 1 Discharge Summary PT-OP-B Current Condition Start: 03/12/21 14:52 Freq: Status: Active Protocol: Document 03/19/21 10:32 MB (Rec: 03/19/21 10:48 MB [id number]) Current Condition History of Current Condition Onset Date Acute pain since Feb 2021, history of back pain Current Complaints LBP that occ radiates to the buttocks and down the right leg History of Current Condition Pt reports a strain in her LB that occurred in the beginning of February. She ordered a cushion to lie on that had acupressure points and she laid on it for 15 minutes and then had really bad pain the next date. She tried a muscle relaxor and pain medication and stopped taking them after reacting poorly to them. She did rub a topical on it and takes Tylenol. The topical and Tylenol did help. Her con't with medical complications and doctors appointments. PMH includes OP and PT earlier in the year at this clinic with this PT that was stopped d/t her having to take her to many doctors appointments and perform a lot of nursing-type care for him. Pt saw her supervising architect last week and he put her on some BP medication. She has a history of PVC and pre-atrial contractions. Pt reports headaches in her frontal area and they start during the day. She has stress with her brother. 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 He is in his house at [place] and has memory issues. He may need a memory care facility. Pt reports 5/10 pain in her LB that radiates to her buttocks . It starts right where the acupressure pillow was. The pain shot down the back of her right leg yesterday. The pain is keeping her from doing tasks like making the bed and being in one position for any amount of time is troublesome. She is going to see Dr. Oscar, orthopedist, Mar 25. Treatment Goals Patient/Caregiver Goals To decrease pain PT-OP-C Subjective Start: 03/12/21 14:52 Freq: Status: Active Protocol: Document 03/19/21 10:32 MB (Rec: 03/19/21 10:48 MB [id number]) OP-PT Subjective Patient Comments Patient Comments See history of current condition Patient Questionnaires Oswestry Low Back Index Oswestry Score 14 Oswestry Impairment 20 to 39% Impaired (Score 20- 39) PT-OP-J Posture/Palpation/Skin Start: 03/12/21 14:52 Freq: Status: Active Protocol: Document 03/19/21 10:32 MB (Rec: 03/19/21 15:34 MB [id number]) Posture Evaluation Comments Posture Comments Standing with shoes off: mild Dowager's hump, forward shoulders B, anterior tilt pelvis, B knee flexion, left shoulder, scapula and SC joint higher than the right, head rests in slight SB to the right, mild left thoracic kyphosis, right iliac crest higher than the left, overpronation B ankles. PT-OP-K Range of Motion Start: 03/12/21 14:52 Freq: Status: Active Protocol: Document 03/19/21 10:32 MB (Rec: 03/19/21 15:34 MB [id number]) Lumbar Spine Range of Motion Lumbar Spine Active Comments Forward flexion and extension in standing deferred d/t pain/ injury and pt with history of OP. She states that flexion is the most problematic B Slump Test negative PT-OP-M Strength Start: 03/12/21 14:52 Freq: Status: Active Protocol: Document 03/19/21 10:32 MB (Rec: 03/19/21 15:34 MB [id number]) Hip Strength Hip Manual Muscle Testing Left Flexion (L2) 3+ Fair+ Abduction 4 Good Adduction 3+ Fair+ Comments Testing in supine Right Flexion (L2) 4 Good Abduction 3+ Fair+ Adduction 3+ Fair+ Comments Testing in supine Knee Strength Knee Manual Muscle Testing Left Flexion (S2) 4 Good Extension (L3) 5 Normal Right Flexion (S2) 4 Good Extension (L3) 5 Normal Ankle/Foot Strength Ankle and Foot Manual Muscle Testing Left Dorsiflexion (L4) 5 Normal Right Dorsiflexion (L4) 5 Normal Toe Strength Toe Manual Muscle Testing Left Great Toe Extension 5 Normal Right Great Toe Extension 5 Normal PT-OP-T Assessment and Plan Start: 03/12/21 14:52 Freq: Status: Active Protocol: Document 04/29/21 07:22 MB (Rec: 04/29/21 07:23 MB [id number]) Physical Therapy Plan Discharge Physical Therapy Discharge Reasons Change in Medical Status Discharge Comments Pt emails to state that she had to cancel all PT appointments d/t ongoing restrictions from compression fracture. Will d/c PT.
== END 2021-05-14 08:30 ==
LOC: PHYS 10:26
PROVIDERS: Family Provider Family Medicine; PCP Family Medicine; Referring Provider Nurse Practitioner Family; Visit Provider Nurse Practitioner Family
DX: M54.50 Low back pain, unspecified (principal)
CPT/HCPCS: 97161; 97535

== ENCOUNTER → 2021-04-17 12:46 | Outpatient (CLI) | payer MEDICARE, OTHER, SELFPAY ==
--- NOTE | 2021-04-17 12:49 | DI.MRI.S_ITS ---
PROCEDURE: MR THORACIC SPINE WO CON INDICATIONS: Wedge compression fracture of T11-T12 vertebra, in TECHNIQUE: Noncontrast sagittal T1 spine echo and T2 fast spin echo, sagittal STIR, axial T1 and T2 fast spin echo through the thoracic spine. COMPARISON: [facility], MR, MR LUMBAR SPINE WO CON, 11/18/2018, 10:52. [facility], CT, CT ABDOMEN PELVIS W CON, 10/25/2018, 10:35. [facility], CR, XR THORACIC SPINE 2 VIEWS, 03/25/2021, 11:32. [facility], CR, XR LUMBAR SPINE WITH OBLIQUES PLUS FLEXION EXTENSION, 03/25/2021, 11:37. FINDINGS: Image quality: Excellent. Alignment and Curvature: Accentuated thoracic kyphosis is seen. No focal AP alignment abnormality is seen. Bone Marrow: Marrow is of normal overall signal. At the T12 level, there is an anterior compression deformity seen, with abnormally decreased T1 weighted signal and abnormally increased STIR signal, with 35% loss of height anteriorly. Mild posterior displacement of fracture fragments can be seen, 3 mm. No additional fractures are seen. Within the posterior right aspect of the T3 vertebral body, there is a stippled focus that is hyperintense on T1 weighted and T2 weighted imaging with mildly increased signal on STIR imaging. Spinal Cord: Visualized spinal cord is normal in size and signal. Paraspinous Soft Tissues: No paravertebral masses. Miscellaneous: Mild to moderate central canal narrowing is seen at the T11-T12 level, at the site of the fracture. Yrtz-dr-ajigyrih neural foraminal narrowing can be seen at this level. Milder degenerative changes are seen elsewhere. IMPRESSION: Subacute appearing fracture of T12, with 35% loss of height anteriorly and 3 mm posterior displacement of fracture fragments. There is ndiy-id-yuvvlipl central canal narrowing seen at T11-T12. 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 In a patient of this age, differential diagnosis would include metastatic disease, yet this is considered to be less likely. Dictated by: Fidencio Pimentel M.D. on 04/17/2021 at 13:05 Approved by: Fidencio Pimentel M.D. on 04/17/2021 at 13:12
== END ==
PROVIDERS: Family Provider Family Medicine; PCP Family Medicine; Referring Provider Physical Medicine & Rehabilitation; Visit Provider Physical Medicine & Rehabilitation
DX: S22.080A Wedge compression fracture of T11-T12 vertebra, initial encounter for closed fracture (principal); M48.04 Spinal stenosis, thoracic region
CPT/HCPCS: 72146

== ENCOUNTER → 2021-05-01 10:55 | Outpatient (CLI) | payer MEDICARE, OTHER, SELFPAY ==
[2021-05-01 15:15] LABS: Calcium 24 Hour Urine 202 mg/day (100-300); Calcium Urine Random 9.2 mg/dL; Collection Time Urine 24 Hours; Total Volume Urine 2200 mL
== END ==
PROVIDERS: Family Provider Family Medicine; PCP Family Medicine; Referring Provider Family Medicine; Visit Provider Family Medicine
DX: M81.0 Age-related osteoporosis without current pathological fracture (principal)
CPT/HCPCS: 82340

== ENCOUNTER → 2021-05-17 11:19 | Outpatient (CLI) | payer MEDICARE, OTHER, SELFPAY ==
--- NOTE | 2021-05-17 11:23 | DI.RAD.S_ITS ---
PROCEDURE: XR LUMBAR SPINE MIN 4V INDICATIONS: mid-back pain, hx T12 fx, worsened pain 2-3 days TECHNIQUE: 5 views of the lumbar spine were acquired, including bilateral oblique views. COMPARISON: [facility], MR, MR THORACIC SPINE WO CON, 04/17/2021, 13:04. [facility] [place], CR, XR LUMBAR SPINE WITH OBLIQUES PLUS FLEXION EXTENSION, 03/25/2021, 11:37. [facility] [place], CR, XR LUMBAR SPINE WITH OLBIQUES PLUS FLEXION EXTENSION, 01/20/2020, 11:24. FINDINGS: Bones: 5 nonrib-bearing vertebrae are present. There is stable bony alignment. Diffuse osteopenia. Moderate multilevel lumbar spondylosis with degenerative endplate changes, disc space loss, and endplate osteophyte formation. There is a T12 anterior compression fracture. This appears stable loss of anterior vertebral body height of approximately 30%. No new fracture seen. No suspicious bony lesions. Soft tissues: Overlying bowel gas pattern is normal. No suspicious soft tissue calcifications. Moderate atherosclerotic vascular calcifications. Oblique images: No pars defects. No spondylolisthesis. IMPRESSION: Lumbar spine with stable appearance of anterior compression fracture of the T12 vertebral body. No new acute fracture seen. Atherosclerotic vascular disease. Moderate multilevel lumbar spondylosis. Dictated by: Josué Mclean M.D. on 05/17/2021 at 11:55 Approved by: Josué Mclean M.D. on 05/17/2021 at 12:01
--- NOTE | 2021-05-17 11:23 | DI.RAD.S_ITS ---
PROCEDURE: XR THORACIC SPINE 3V INDICATIONS: mid-back pain, hx T12 fx, worsened pain 2-3 days TECHNIQUE: 3 views of the thoracic spine were acquired. COMPARISON: [facility] [place], CR, XR THORACIC SPINE 2 VIEWS, 03/25/2021, 11:32. [facility], CR, XR LUMBAR SPINE WITH OBLIQUES PLUS FLEXION EXTENSION, 03/25/2021, 11:37. FINDINGS: Bones: Wedge-shaped anterior T12 compression fracture with 30% anterior height loss is again noted, unchanged from prior exam. No evidence of retropulsed fracture fragment. Remainder of the vertebral bodies show appropriate height and alignment. Normal bone mineralization present. Soft tissues: No paravertebral stripe thickening. IMPRESSION: Old T12 wedge-shaped compression fracture, stable from the prior Approved by: Scottie James M.D. on 05/17/2021 at 11:37
== END ==
PROVIDERS: Family Provider Family Medicine; PCP Family Medicine; Referring Provider Physician Assistant; Visit Provider Physician Assistant
DX: M47.816 Spondylosis without myelopathy or radiculopathy, lumbar region (principal); M48.54XA Collapsed vertebra, not elsewhere classified, thoracic region, initial encounter for fracture; I70.90 Unspecified atherosclerosis; M54.9 Dorsalgia, unspecified
CPT/HCPCS: 72072; 72110

== ENCOUNTER → 2021-05-28 13:05 | Outpatient (CLI) | payer MEDICARE, OTHER, SELFPAY ==
--- NOTE | 2021-05-28 | DI.MRI.S_ITS ---
PROCEDURE: MR LUMBAR SPINE WO CON INDICATIONS: Radiculopathy, lumbar region TECHNIQUE: Noncontrast sagittal T1 spin echo and T2 fast echo, sagittal STIR, axial T1 and T2 fast spin echo through the lumbar spine. In cases with scoliosis, additional coronal T2 fast spin echo may be performed. COMPARISON: [facility] [place], CR, XR THORACIC SPINE 2 VIEWS, 03/25/2021, 11:32. [facility] [place], CR, XR LUMBAR SPINE WITH OBLIQUES PLUS FLEXION EXTENSION, 03/25/2021, 11:37. [facility] [place], CR, XR LUMBAR SPINE WITH OLBIQUES PLUS FLEXION EXTENSION, 01/20/2020, 11:24. [facility], MR, MR LUMBAR SPINE WO CON, 11/18/2018, 10:52. [facility], CR, XR LUMBAR SPINE MIN 4V, 05/17/2021, 11:18. FINDINGS: Image quality: Excellent. Alignment and Curvature: There is trace L4-L5 anterolisthesis. Bones: Loss of height noted in the T12 vertebral body compatible with compression fracture which is stable in appearance compared to plain film radiographs obtained May 17, 2021 and March 25, 2021, but is new compared to January 20, 2020. Increased T2 signal noted within the T12 vertebral body indicating compression fracture is subacute. Mixed Modic type 1 and 2 reactive endplate changes noted adjacent to the L5-S1 disc. Spinal Cord: Conus medullaris terminates at the L1-2 disc level. Visualized cord demonstrates normal signal and size. Paraspinous Soft Tissues: No paravertebral masses. T11-T12: Loss of disc signal. Mild, diffuse disc bulge. Mild narrowing of the central canal. Mild bilateral neural foraminal narrowing. No neural compression. T12-L1: Slight loss of disc signal. No central stenosis. No neural foraminal narrowing. No neural compression. L1-L2: Loss of disc signal. Mild, diffuse disc bulge. Mild bilateral facet hypertrophy. Mild narrowing of the central canal. No neural foraminal narrowing. No neural compression. L2-L3: Loss of disc signal and height. Moderate, diffuse disc bulge. Mild bilateral facet hypertrophy. Mild to moderate narrowing of the central canal. Aytd-la-klficwjt right and mild left neural foraminal narrowing. No neural compression. L3-L4: Loss of disc signal and height. Moderate, diffuse disc bulge. Mild bilateral facet hypertrophy. Mild to moderate narrowing of the central canal. Mild to moderate bilateral neural foraminal narrowing. No neural compression. L4-L5: Loss of disc signal and height. Mild to moderate diffuse disc bulge. Mild bilateral facet hypertrophy. Mild narrowing of the central canal. Mild right and moderate left neural foraminal narrowing. No neural compression. L5-S1: Loss of disc signal. Moderate, diffuse disc bulge. Mild bilateral facet hypertrophy. No central stenosis. Moderate to severe right and severe left neural foraminal narrowing with compression of the exiting L5 nerve roots. IMPRESSION: 1. Multilevel degenerative disc disease. 2. Multilevel facet arthropathy. 3. No severe central canal narrowing. 4. Moderate to severe right and severe left L5-S1 neural foraminal narrowing with compression of the exiting L5 nerve roots. 5. Subacute appearing T12 compression fracture which results in approximately 30-40% loss of normal anterior vertebral body height. Dictated by: Janna Yanez MD, PhD on 05/28/2021 at 16:23 Approved by: Janna Yanez MD, PhD on 05/28/2021 at 16:44
== END ==
PROVIDERS: Family Provider Family Medicine; PCP Family Medicine; Referring Provider Physician Assistant Medical; Visit Provider Physician Assistant Medical
DX: M51.16 Intervertebral disc disorders with radiculopathy, lumbar region (principal); M51.17 Intervertebral disc disorders with radiculopathy, lumbosacral region; M47.26 Other spondylosis with radiculopathy, lumbar region; M47.27 Other spondylosis with radiculopathy, lumbosacral region; M48.07 Spinal stenosis, lumbosacral region; M48.54XA Collapsed vertebra, not elsewhere classified, thoracic region, initial encounter for fracture
CPT/HCPCS: 72148

== ENCOUNTER → 2022-02-13 08:10 | Outpatient (CLI) | payer MEDICARE, OTHER, SELFPAY ==
[2022-02-13 10:30] LABS: Alanine Aminotransferase 28 IU/L (<35); Albumin 3.9 g/dL (3.5-5.0); Albumin Globulin Ratio 1.1 (1.0-2.8); Alkaline Phosphatase 84 U/L (38-126); Aspartate Aminotransferase 26 IU/L (14-36); BUN Creatinine Ratio 21.2 (6-22); Bilirubin Total 0.6 mg/dL (0.2-1.3); Blood Urea Nitrogen 18 mg/dL (7-17); Calcium 8.7 mg/dL (8.4-10.2); Carbon Dioxide 25 mmol/L (22-32); Chloride 104 mmol/L (98-107); Cholesterol 128 mg/dL (140-199); Estimated Glomerular Filt Rate > 60 mL/min (>60); Globulin 3.5 g/dL (1.7-4.1); Glucose 100 mg/dL (80-110); HDL Cholesterol 42 mg/dL (40-60); HEMOLYSIS < 15 (0-50); LDL Cholesterol Calculated 66 mg/dL (<100); Potassium 4.1 mmol/L (3.4-5.1); Sodium 140 mmol/L (137-145); Total Protein 7.4 g/dL (6.3-8.2); Triglycerides 100 mg/dL (35-150)
== END ==
PROVIDERS: Family Provider Family Medicine; PCP Family Medicine; Referring Provider Nurse Practitioner; Visit Provider Nurse Practitioner
DX: E78.00 Pure hypercholesterolemia, unspecified (principal)
CPT/HCPCS: 36415; 80053; 80061

== ENCOUNTER → 2022-02-20 19:04 | Outpatient (CLI) | payer MEDICARE, OTHER, SELFPAY ==
--- NOTE | 2022-02-20 19:08 | DI.MRI.S_ITS ---
PROCEDURE: MR THORACIC SPINE WO CON INDICATIONS: Thoracic compression fractures TECHNIQUE: Noncontrast sagittal T1 spine echo and T2 fast spin echo, sagittal STIR, and T2 fast spin echo through the thoracic spine. COMPARISON: [facility], CR, XR THORACIC SPINE 2 VIEWS, 08/01/2021, 14:44. [facility], CR, XR THORACIC SPINE 2 VIEWS, 10/07/2021, 14:45. [facility], , MR THORACIC SPINE WO CON, 04/17/2021, 13:04. [facility], CR, XR THORACOLUMBAR SPINE 2 VIEWS, 10/07/2021, 15:12. FINDINGS: Image quality: Excellent. Alignment and Curvature: Accentuated thoracic kyphosis is seen. No focal AP alignment abnormality is seen. Bone Marrow: Marrow is of normal overall signal. No acute vertebral body compression fractures. There is a T12 anterior wedge deformity seen, with 35% loss of height anteriorly. There is mild posterior displacement of fracture fragments of 2-3 mm, as on series 4, image 9. Minimal anterior wedge deformities are seen elsewhere, with approximately 10% loss of height at T8 and 5-10% loss of height seen elsewhere within the midthoracic spine. Scattered foci are seen, which are hyperintense on T1-weighted and T2-weighted imaging, which are most consistent with benign vertebral body hemangiomas. At the posterior aspect of the T3 level, there is again seen a focus that demonstrates increased signal on T1 weighted and T2 weighted imaging, with a slight amount of increased STIR signal. This is unchanged compared to the prior examination. Spinal Cord: Visualized spinal cord is normal in size and signal. Paraspinous Soft Tissues: No paravertebral masses. Miscellaneous: There is mild to moderate central canal narrowing at T11-T12 level, as on series 8, image 19. A few levels of mild neural foraminal narrowing can be seen within the lower thoracic spine. IMPRESSION: There is a remote T12 anterior wedge deformity seen, with 35% loss of height anteriorly, which is stable compared to the prior MRI dated 02/15/2022. Mild areas of chronic compression deformity can be seen elsewhere within the thoracic spine, with associated accentuated thoracic kyphosis. Stable lesion seen within the posterior aspect of T3, which is attributed to an atypical vertebral body hemangioma. Dictated by: Fidencio Pimentel M.D. on 02/21/2022 at 9:01 Approved by: Fidencio Pimentel M.D. on 02/21/2022 at 9:06
== END ==
PROVIDERS: Family Provider Family Medicine; PCP Family Medicine; Referring Provider Physical Medicine & Rehabilitation; Visit Provider Physical Medicine & Rehabilitation
DX: S22.080A Wedge compression fracture of T11-T12 vertebra, initial encounter for closed fracture (principal); M81.0 Age-related osteoporosis without current pathological fracture; M40.204 Unspecified kyphosis, thoracic region
CPT/HCPCS: 72146

== ENCOUNTER → 2022-03-29 16:32 | Outpatient (CLI) | payer MEDICARE, OTHER, SELFPAY ==
--- NOTE | 2022-03-29 16:34 | DI.RAD.S_ITS ---
PROCEDURE: XR RIBS LT 2V with single-view chest INDICATIONS: Left rib injury TECHNIQUE: Two views of the left ribs were acquired. Single-view chest. COMPARISON: None. FINDINGS: Surgical changes and devices: None. Bones and chest wall: No displaced fracture is identified. There is a possible deformity of the left ninth and 10th 10th rib at the costochondral junction. Lungs and pleura: Suspected linear scar at the left lung base. No dense consolidation or pleural effusion. IMPRESSION: Possible minimal deformity at the left lower rib costochondral junction at the site of BB marker. No displaced fracture is identified. If there is high concern for occult injury, consider repeat radiography or cross-sectional imaging. Dictated by: Wesley Hendricks M.D. on 03/29/2022 at 16:16 Approved by: Wesley Hednricks M.D. on 03/29/2022 at 16:19
== END ==
PROVIDERS: Family Provider Family Medicine; PCP Family Medicine; Referring Provider Registered Nurse; Visit Provider Registered Nurse
DX: R07.81 Pleurodynia (principal)
CPT/HCPCS: 71100

== ENCOUNTER → 2022-05-20 09:02 | Outpatient (CLI) | payer MEDICARE, OTHER, SELFPAY ==
--- NOTE | 2022-05-20 09:03 | DI.US.S_ITS ---
PROCEDURE: US PERIPH VENOUS LOW EXTREM RT INDICATIONS: SWELLING TECHNIQUE: Real-time imaging, as well as color and pulse Doppler interrogation, were performed of the lower extremity deep veins from the inguinal ligament to the popliteal fossa. COMPARISON: None. FINDINGS: The common femoral, femoral and popliteal veins are normally compressible, and free of intraluminal thrombus. Color and pulse Doppler demonstrate normal phasic intraluminal flow. There is normal augmentation response to distal compression maneuver. IMPRESSION: No DVT in the right lower extremity. Dictated by: Rasheed Renee M.D. on 05/20/2022 at 9:58 Approved by: Rasheed Renee M.D. on 05/20/2022 at 9:58
== END ==
PROVIDERS: Family Provider Family Medicine; PCP Family Medicine; Referring Provider Physician Assistant; Visit Provider Physician Assistant
DX: M79.89 Other specified soft tissue disorders (principal)
CPT/HCPCS: 93971

== ENCOUNTER 2022-05-29 08:18 | Outpatient (CLI) | payer MEDICARE, OTHER, SELFPAY ==
[2022-05-29] VITALS (7 sets, daily range): BP systolic 141–179; BP diastolic 67–80; PULSE 52–58; RESP 13–18; O2SAT 96–97
--- NOTE | 2022-05-29 08:19 | DI.RAD.S_ITS ---
PROCEDURE: PAIN L/S TRANSFORAMINAL INJECT INDICATIONS: SPONDYLOSIS COMPARISON: None. FINDINGS: Fluoroscopic spot filming was performed to verify placement of spinal needles at the right L5 nerve root level(s), as labeled on the films. Appropriate location(s) of the needle tip(s) was confirmed by injection of iodinated contrast. IMPRESSION: Imaging guidance utilized for a right L5-S1 transforaminal epidural steroid injection, performed by the referring interventional pain physician. Dictated by: Onesimo Merino M.D. on 05/29/2022 at 11:27 Approved by: Onesimo Merino M.D. on 05/29/2022 at 11:29
[2022-05-29] MEDS: MIDAZOLAM 2 MG/2 ML VIAL IV (09:22)
[2022-05-29] MEDS: IOPAMIDOL 15 ML VIAL 3 ML INJ (09:27)
[2022-05-29] MEDS: BUPIVACAINE 0.25% (PF) VIAL 2 ML INJ (09:27)
[2022-05-29] MEDS: DEXAMETHASONE 10 MG/ML VIAL 20 MG INJ (09:27)
[2022-05-29] MEDS: BETAMETHASONE 30 MG/5 ML MDV 6 MG INJ (09:27)
--- NOTE | 2022-05-29 09:37 | P.PCN_ITS ---
Date/Time/Diagnoses Date of procedure: 05/29/22 Time of procedure: 09:37 Pre-procedure diagnosis: FORAMINAL STENOSIS WITH LE SYMPTOMS Post-procedure diagnosis: same Procedure Notes Procedure: 1. FLUOROSCOPICALLY GUIDED CONTRAST CONTROLLED TRANSFORAMINAL EPIDURAL STEROID INJECTION - RIGHT L5/S1 TFESI Indications: Rita is referred by Dr. Bailey for treatment of Foraminal Stenosis with Right LE Symptoms Physician: Leland Lopez Total Fluoroscopy time (seconds): 8 Total sedation minutes: 12 Complications: none Procedure in detail & Post-procedure care: FINDINGS Foraminal Nerve Root Compression secondary to disc disease and facet hypertrophy DESCRIPTION OF PROCEDURE Following review of allergy and review of potential side effects and complications, including, but not necessarily limited to, infection, allergic re action, local tissue breakdown, stroke, temporary or permanent nerve injury, paralysis, and possible , the patient indicated that the patient understood and agreed to proceed. An informed consent document was signed by the patient, witnessed by a nurse, and placed in the patient's chart. Additionally, other treatment options including medications, modalities, and physical therapy were reviewed with the patient. After review of previous anaesthesic history and IV conscious sedation the patient was deemed safe to proceed with today?s procedure with IV conscious sedation as ASA class II designation. Safety time-out was performed to confirm patient ID, procedure to be performed and site of procedure. IV sedation was accomplished with a combination of 2mg of Versed was administered by the RN after DO order, titrated to patient comfort during the course of the procedure while the patient remained responsive to all verbal commands In the prone position following sterile prep and drape of the lumbar region, the right L5/S1 posterior neuroforamen was identified fluoroscopically. The skin was anesthetized via a 25-gauge 1.5-inch needle with 1% lidocaine solution. At this point, a 25-gauge 3.5-inch spinal needle was atraumatically introduced and advanced under fluoroscopic guidance through the posterior right L5/S1 neuroforamen to approximately the anterior aspect of the canal. Depth was confirmed on lateral view. Following negative aspiration, injection of approximately 1.5cc of Isovue 200 under live fluoroscopy in the AP view confirmed excellent flow along the nerve root, into the epidural space without vascular or intrathecal uptake observed Radiological data, including multiple fluoroscopic views of the lumbosacral spine, reveal a spinal needle at the right L5/S1 posterior neuroforamen. Subsequent views show flow of contrast material flowing superiorly and inferiorly along the nerve root confirming epidural flow. Subsequently, a test dose of 1.5 cc of 1% lidocaine solution was administered and patient was observed for two minutes for signs or symptoms of complications, including abdominal pain, shortness of breath, bilateral upper or lower extrem ity weakness, nausea and vomiting, prior to steroid injection. At this point, a total of 3cc or 20mg of dexamethasone and 6mg of betamethasone was injected without incident. The procedure tolerated the procedure well without signs or symptoms of complications prior to transfer to the recovery area continued monitoring without incident. The patient was then transferred to the recovery area where they were observed for an appropriate time after the injection. The patient reported a VAS score of 7 prior to the procedure and a post- procedure VAS of 0. POST OP INSTRUCTIONS The patient was provided a Pain Log to continue to record their response to the target-specific procedure prior to follow-up visit with their referring physician. Additionally, specific post-injection care instructions and a contact number to our office were provided if concerns arise regarding possible complications associated with the procedure are suspected.
== END 2022-05-29 09:52 | disposition home or self-care (01) ==
LOC: RAD 08:19
PROVIDERS: Family Provider Family Medicine; PCP Family Medicine; Referring Provider Physical Medicine & Rehabilitation; Visit Provider Physical Medicine & Rehabilitation
DX: M48.07 Spinal stenosis, lumbosacral region (principal); M51.17 Intervertebral disc disorders with radiculopathy, lumbosacral region
CPT/HCPCS: 64483; 99152; J0702; J1100; J2250; J3490

== ENCOUNTER 2022-11-20 10:47 | Outpatient (CLI) | payer MEDICARE, OTHER, SELFPAY ==
[2022-11-20] VITALS (8 sets, daily range): BP systolic 148–183; BP diastolic 56–80; PULSE 50–61; RESP 16–17; TEMP 36.7; O2SAT 95–99
--- NOTE | 2022-11-20 10:47 | DI.RAD.S_ITS ---
PROCEDURE: PAIN L/S TRANSFORAMINAL INJECT INDICATIONS: SPONDYLOSIS COMPARISON: [facility], , PAIN L/S TRANSFORAMINAL INJECT, 05/29/2022, 10:26. FINDINGS: Fluoroscopic spot filming was performed to verify placement of spinal needles at the right L4-L5 neural foramen level(s), as labeled on the films. Appropriate location(s) of the needle tip(s) was confirmed by injection of iodinated contrast. IMPRESSION: Access needle at the right L4-L5 neural foramen for transforaminal epidural steroid injection. Dictated by: Janna Yanez MD, PhD on 11/20/2022 at 13:51 Approved by: Janna Yanez MD, PhD on 11/20/2022 at 13:52
[2022-11-20] MEDS: MIDAZOLAM 2 MG/2 ML VIAL IV (12:39)
[2022-11-20] MEDS: IOPAMIDOL 15 ML VIAL 3 ML INJ (12:44)
[2022-11-20] MEDS: DEXAMETHASONE 10 MG/ML VIAL INJ (12:44)
[2022-11-20] MEDS: BETAMETHASONE 30 MG/5 ML MDV 6 MG INJ (12:44)
[2022-11-20] MEDS: BUPIVACAINE 0.25% (PF) VIAL 2 ML INJ (12:45)
--- NOTE | 2022-11-20 12:55 | P.PCN_ITS ---
Date/Time/Diagnoses Date of procedure: 11/20/22 Time of procedure: 12:55 Pre-procedure diagnosis: 1. FORAMINAL STENOSIS WITH LE SYMPTOMS Post-procedure diagnosis: same Procedure Notes Procedure: 1. FLUOROSCOPICALLY GUIDED CONTRAST CONTROLLED TRANSFORAMINAL EPIDURAL STEROID INJECTION - RIGHT L4/5 TFESI Indications: Rita is referred for treatment of Foraminal Stenosis with Right LE Symptoms Physician: Leland Lopez Total Fluoroscopy time (seconds): 10 Total sedation minutes: 11 Complications: none Procedure in detail & Post-procedure care: FINDINGS Foraminal Nerve Root Compression secondary to disc disease and facet hypertrophy DESCRIPTION OF PROCEDURE Following review of allergy and review of potential side effects and complications, including, but not necessarily limited to, infection, allergic reaction, local tissue breakdown, stroke, temporary or permanent nerve injury, paralysis, and possible , the patient indicated that the patient understood and agreed to proceed. An informed consent document was signed by the patient, witnessed by a nurse, and placed in the patient's chart. Additionally, other treatment options including medications, modalities, and physical therapy were reviewed with the patient. After review of previous anaesthesic history and IV conscious sedation the patient was deemed safe to proceed with today?s procedure with IV conscious sedation as ASA class II designation. Safety time-out was performed to confirm patient ID, procedure to be performed and site of procedure. IV sedation was accomplished with a combination of 2mg of Versed was administered by the RN after DO order, titrated to patient comfort during the course of the procedure while the patient remained responsive to all verbal commands In the prone position following sterile prep and drape of the lumbar region, the right L4/5 posterior neuroforamen was identified fluoroscopically. The skin was anesthetized via a 25-gauge 1.5-inch needle with 1% lidocaine solution. At this point, a 25-gauge 3.5-inch spinal needle was atraumatically introduced and advanced under fluoroscopic guidance through the posterior right L4/5 neuroforamen to approximately the anterior aspect of the canal. Depth was confirmed on lateral view. Following negative aspiration, injection of approximately 1.5cc of Isovue 200 under live fluoroscopy in the AP view confirmed excellent flow along the nerve root, into the epidural space without vascular or intrathecal uptake observed Radiological data, including multiple fluoroscopic views of the lumbosacral spine, reveal a spinal needle at the right L4/5 posterior neuroforamen. Subsequent views show flow of contrast material flowing superiorly and inferiorly along the nerve root confirming epidural flow. Subsequently, a test dose of 1.5 cc of 1% lidocaine solution was administered and patient was observed for two minutes for signs or symptoms of complications, including abdominal pain, shortness of breath, bilateral upper or lower extremity weakness, nausea and vomiting, prior to steroid injection. At this point, a total of 2cc or 10mg of dexamethasone and 6mg of betamethasone was injected without incident. The procedure tolerated the procedure well without signs or symptoms of complications prior to transfer to the recovery area continued monitoring without incident. The patient was then transferred to the recovery area where they were observed for an appropriate time after the injection. The patient reported a VAS score of 7 prior to the procedure and a post- procedure VAS of 1. POST OP INSTRUCTIONS The patient was provided a Pain Log to continue to record their response to the target-specific procedure prior to follow-up visit with their referring physician. Additionally, specific post-injection care instructions and a contact number to our office were provided if concerns arise regarding possible complications associated with the procedure are suspected.
== END 2022-11-20 13:19 | disposition home or self-care (01) ==
PROVIDERS: Family Provider Physical Medicine & Rehabilitation; PCP Physical Medicine & Rehabilitation; Referring Provider Physical Medicine & Rehabilitation; Visit Provider Physical Medicine & Rehabilitation
DX: M48.061 Spinal stenosis, lumbar region without neurogenic claudication (principal); M51.16 Intervertebral disc disorders with radiculopathy, lumbar region; M47.26 Other spondylosis with radiculopathy, lumbar region
CPT/HCPCS: 64483; 99152; J0702; J1100; J2250; J3490

== ENCOUNTER → 2023-01-08 12:41 | Outpatient (CLI) | payer MEDICARE, OTHER, SELFPAY ==
--- NOTE | 2023-01-08 12:44 | DI.MRI.S_ITS ---
PROCEDURE: MR LUMBAR SPINE WO CON INDICATIONS: hnp TECHNIQUE: Noncontrast sagittal T1 spin echo and T2 fast echo, sagittal STIR, and T2 fast spin echo through the lumbar spine. In cases with scoliosis, additional coronal T2 fast spin echo may be performed. COMPARISON: [facility], MR, MR LUMBAR SPINE WO CON, 05/28/2021, 13:25. FINDINGS: Image quality: Excellent. Alignment and Curvature: Trace anterolisthesis of L4 on L5 is stable. Bone Marrow: Multilevel degenerative endplate changes, most pronounced at L5-S1. Stable appearance of T12 superior endplate compression fracture. No acute vertebral body compression fractures. Spinal Cord: Conus medullaris terminates at the L1 level. Visualized cord demonstrates normal signal and size. Paraspinous Soft Tissues: No paravertebral masses. T12-L1: No central canal or neural foraminal stenosis. L1-L2: Disc desiccation and height loss with small posterior disc bulge. Facet arthropathy. Stable mild central canal stenosis. No neural foraminal stenosis. L2-L3: Disc desiccation and height loss with posterior disc bulge. Facet arthropathy and thickened ligamentum flavum. Epidural lipomatosis. Stable mild to moderate central canal stenosis. Stable mild to moderate right and mild left neural foraminal stenosis. L3-L4: Disc desiccation and height loss with posterior disc bulge. Facet arthropathy and thickened ligamentum flavum. Stable mild to moderate central canal stenosis. Stable mild to moderate bilateral neural foraminal stenosis. L4-L5: Disc desiccation and height loss with posterior disc bulge. Facet arthropathy. Stable mild central canal stenosis. Stable mild right neural foraminal stenosis. Mild progression in moderate to severe left neural foraminal stenosis. L5-S1: Disc desiccation and height loss with diffuse disc bulge which appears increased compared to prior. Facet arthropathy. No central canal stenosis. Narrowing of the right lateral recess with abutment of the descending right S1 nerve root is stable. Progression of severe bilateral neural foraminal stenosis, left greater than right. IMPRESSION: 1. Multilevel degenerative changes of the lumbar spine with mild progression at L4-5 and L5-S1. 2. There is now severe bilateral neural foraminal stenosis at L5-S1, worse on the left. 3. Moderate to severe left neural foraminal stenosis at L4-5 is also progressed. 4. Additional degenerative changes are stable compared to prior as described above. Dictated by: Kenan Smith M.D. on 01/08/2023 at 14:13 Approved by: Kenan Smith M.D. on 01/08/2023 at 14:22
== END ==
PROVIDERS: Family Provider Physical Medicine & Rehabilitation; Referring Provider Physical Medicine & Rehabilitation; Visit Provider Physical Medicine & Rehabilitation
DX: M51.27 Other intervertebral disc displacement, lumbosacral region (principal); M47.816 Spondylosis without myelopathy or radiculopathy, lumbar region; M47.817 Spondylosis without myelopathy or radiculopathy, lumbosacral region; M48.061 Spinal stenosis, lumbar region without neurogenic claudication; M48.07 Spinal stenosis, lumbosacral region
CPT/HCPCS: 72148

== ENCOUNTER 2023-04-23 08:52 | Emergency (ER) | payer MEDICARE, OTHER, SELFPAY ==
[2023-04-23 08:58] VITALS: BP 166/72; PULSE 61; RESP 18; TEMP 36.9; O2SAT 98; BMI 21.9
--- NOTE | 2023-04-23 09:03 | DI.RAD.S_ITS ---
PROCEDURE: XR CHEST 1V INDICATIONS: chest pain TECHNIQUE: One view of the chest was acquired. COMPARISON: [facility], , CHEST 1 VIEW, 07/11/2013, 1:59. FINDINGS: Surgical changes and devices: None. Lungs and pleura: Lungs are clear. No pleural effusions or pneumothorax. Mediastinum: Mediastinal contours appear normal. Heart size is normal. Bones and chest wall: No suspicious bony lesions. Overlying soft tissues appear unremarkable. IMPRESSION: No acute cardiopulmonary abnormality is seen. Dictated by: Kamini Lund M.D. on 04/23/2023 at 9:30 Approved by: Kamini Lund M.D. on 04/23/2023 at 9:31
[2023-04-23] MEDS: ASPIRIN 81 MG CHEW TAB 324 MG PO (09:12)
--- NOTE | 2023-04-23 09:17 | PC.NURSE ---
Pt states that she has has been feeling intermittent cp that started last night. Describes pain as 5/10 and an intense deep pressure. Denies n/v, sob. Pt does report that her spouse about 10 days ago and she has been experiencing grief and sadness lately. She was unsure if this episode was related to recent stress. Pt denies any significant medical hx but does take medication for HTN. Pt a&ox4. ADMINISTRATIVE PROCESSOR intact. Skin pink, warm and dry.
[2023-04-23 09:24] LABS: Add Manual Diff / Slide Review NO; Basophils Absolute Auto 0 /uL (0-100); Basophils Percent Auto 0.5 % (0-2); Eosinophils Absolute Auto 200 /uL (0-450); Eosinophils Percent Auto 2.1 % (2-4); Hematocrit 44.3 % (36-46); Lymphocytes Absolute Auto 2200 /uL (1100-4500); Lymphocytes Percent Auto 26.9 % (25-40); Mean Corpuscular HGB Conc 33.8 % (30-36); Mean Corpuscular Hemoglobin 30.8 PG (26-34); Mean Corpuscular Volume 91.3 fL (80-100); Monocytes Absolute Auto 600 /uL (0-900); Monocytes Percent Auto 7.8 % (3-14); Neutrophils Absolute Auto 5100 /uL (1500-7000); Neutrophils Percent Auto 62.7 % (50-75); Platelet Count 230 X10^3/uL (150-400); Red Blood Cell Count 4.86 X10^6/uL (4.0-5.2); Red Cell Distribution Width 13.5 % (11.6-14.8); White Blood Cell Count 8.1 X10^3/uL (4.5-11.0)
[2023-04-23 09:46] LABS: Alanine Aminotransferase 23 IU/L (<35); Albumin 4.3 g/dL (3.5-5.0); Albumin Globulin Ratio 1.1 (1.0-2.8); Alkaline Phosphatase 63 U/L (38-126); Aspartate Aminotransferase 36 IU/L (14-36); BUN Creatinine Ratio 20.9 (6-22); Bilirubin Total 0.8 mg/dL (0.2-1.3); Blood Urea Nitrogen 19 mg/dL (7-17); Calcium 9.6 mg/dL (8.4-10.2); Carbon Dioxide 29 mmol/L (22-32); Chloride 102 mmol/L (98-107); Creatine Kinase 119 U/L (30-135); Estimated Glomerular Filt Rate > 60 mL/min (>60); Globulin 3.8 g/dL (1.7-4.1); Glucose 88 mg/dL (80-110); HEMOLYSIS 23 (0-50); Lipase 136 U/L (23-300); Magnesium 2.1 mg/dL (1.6-2.3); Potassium 3.6 mmol/L (3.4-5.1); Sodium 140 mmol/L (137-145); Total Protein 8.1 g/dL (6.3-8.2)
--- NOTE | 2023-04-23 09:52 | ED.CHESTPAIN ---
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 Patient presents with complaint of left breast axilla pain that is started last night has been fairly constant although occasionally resolves. She states sort of low-level will sometimes be sharp or burning sensation. She states she thought she might have heartburn so she ate dinner, tried Tums without much improvement. Patient states does not radiate anywhere else does not go down her arm to her neck back or abdomen. Describes it more of a burning sensation. Denies any fevers or chills, has had some congestion in her chest, had a mild cough which has been nonproductive. Denies any diaphoresis, no shortness of breath, no pleuritic pain, no nausea no vomiting, some mild constipation but having bowel movements, no urinary symptoms. No rash or skin changes noted. States she would similar symptoms many years ago. She saw Dr. Barros had workup and was diagnosed with PACs and PVCs and placed on metoprolol. She notes only prior surgery was a breast biopsy after positive needle biopsies and this was negative this was in 2003. States she had an adverse reaction to prednisone. Denies tobacco, rare alcohol, no recreational drugs. Patient notes that her 10 days ago. He was not hospice. Related Data Home Medications Medication Instructions Recorded Confirmed atorvastatin 20 mg tablet 20 mg PO DAILY 08/14/20 02/16/23 metoprolol succinate 25 mg 25 mg PO DAILY 08/28/20 02/16/23 tablet,extended release 24 hr ibuprofen 200 mg tablet (Advil) 200 mg PO Q6H PRN 02/19/22 02/16/23 losartan 25 mg tablet 25 mg PO DAILY 02/19/22 02/16/23 Previous Rx's Medication Instructions Recorded gabapentin 300 mg capsule 300 mg PO .COMPLEX #90 caps 11/17/22 Allergies Allergy/AdvReac Type Severity Reaction Status Date / Time methylprednisolone AdvReac Intermediate Fainting Verified 04/23/23 09:03 [From Depo-Medrol] Review of Systems Review of Systems ROS Unobtainable: All systems reviewed & are unremarkable except as noted in HPI and below Patient History Medical History Compression fracture of T9 vertebra Compression fracture of T8 vertebra Herniated nucleus pulposus, L5-S1, right Osteoporosis Facet arthropathy, lumbar Lumbar radiculopathy T12 compression fracture Lumbago Social History household members: spouse Smoking Status: Never smoker alcohol intake: current Smoking Status: Never smoker alcohol intake frequency: holidays/special occasions only Substance Use Type: does not use Exam Narrative Exam Narrative: GENERAL: Alert and oriented x three, well-appearing female in mild distress. HEENT: Head normocephalic, atraumatic, EOMI, pupils reactive, face symmetric, moist mucous membranes NECK: Supple, full range of motion CARDIOVASCULAR: Regular rate and rhythm without murmurs, rubs or gallops. No reproducible chest pain. No rash or skin changes noted. RESPIRATORY: Breath sounds equal bilaterally, no wheezes rales or rhonchi. ABDOMEN: Soft, nontender. Normoactive bowel sounds all 4 quadrants. No guarding or rebound, rigidity, no mass : No CVA tenderness EXTREMITIES: Normal range of motion, no clubbing or edema. Neurovascularly intact. 2+ radial pulses. NEUROLOGICAL: Cranial nerves II through XII grossly intact. Moving all extremities SKIN: Warm, dry, no petechiae, no rashes or lesions. Initial Vital Signs Initial Vital Signs: Vital Signs Temperature 98.4 F 04/23/23 08:58 Pulse Rate 61 04/23/23 08:58 Respiratory Rate 18 04/23/23 08:58 Blood Pressure 166/72 H 04/23/23 08:58 Pulse Oximetry 98 04/23/23 08:58 Oxygen Delivery Method Room Air 04/23/23 08:58 Course Orders Ordered: ED Orders 04/23/23 09:10 Complete Blood Count AUTO DIFF Stat Comprehensive Metabolic Panel Stat Lipase Stat Magnesium Stat Troponin & CK Cardiac Panel Stat 04/23/23 09:12 EKG-12 Lead Stat 04/23/23 10:12 Consult to [employer]CH[employer] - Electronic Engraver Stat 04/23/23 11:00 Covid-19 + FLU A/B + RSV - PCR Stat 04/23/23 11:12 PTT Partial Thromboplastin Minh Stat Prothrombin Time INR Stat Trop I [Troponin I] Stat 04/23/23 12:14 EKG-12 Lead Stat Discontinued Medications Aspirin (Aspirin 81 Mg Chew Tab) 324 mg PO NOW ONE Stop: 04/23/23 09:04 Last Admin: 04/23/23 09:12 Dose: 324 mg Documented By: MPO Vital Signs Vital signs: Vital Signs - 8 hr 04/23/23 12:05 04/23/23 12:15 04/23/23 12:30 Temperature Pulse Rate 55 L 53 L 54 L Respiratory Rate 45 H 25 H 20 Blood Pressure 176/75 H Pulse Oximetry 95 94 95 Oxygen Delivery Method 04/23/23 12:45 04/23/23 13:00 Temperature 98.8 F Pulse Rate 54 L Respiratory Rate 22 Blood Pressure Pulse Oximetry 96 Oxygen Delivery Method Room Air MDM - Chest Pain Lab Data 04/23/23 09:10 04/23/23 09:10 Labs: Lab Results 04/23/23 04/23/23 04/23/23 Range/Units 09:10 11:00 11:12 WBC 8.1 (4.5-11.0) X10^3/uL RBC 4.86 (4.0-5.2) X10^6/uL Hgb 15.0 (12.0-16.0) g/dL Hct 44.3 (36-46) % MCV 91.3 (80-100) fL MCH 30.8 (26-34) PG MCHC 33.8 (30-36) % RDW 13.5 (11.6-14.8) % Plt Count 230 (150-400) X10^3/uL Neut % (Auto) 62.7 (50-75) % Lymph % (Auto) 26.9 (25-40) % [place] % (Auto) 7.8 (3-14) % Eos % (Auto) 2.1 (2-4) % Baso % (Auto) 0.5 (0-2) % Neut # (Auto) 5100 (9231-0841) /uL Lymph # (Auto) 2200 (0607-8919) /uL [place] # (Auto) 600 (0-900) /uL Eos # (Auto) 200 (0-450) /uL Baso # (Auto) 0 (0-100) /uL PT 11.8 (9.4-12.5) SECONDS INR 1.0 (0.9-1.3) APTT 26 (25.1-36.5) SECONDS Sodium 140 (137-145) mmol/L Potassium 3.6 (3.4-5.1) mmol/L Chloride 102 (98-107) mmol/L Carbon Dioxide 29 (22-32) mmol/L BUN 19 H (7-17) mg/dL Creatinine 0.91 (0.52-1.04) mg/dL Estimated GFR > 60 (>60) mL/min BUN/Creatinine Ratio 20.9 (6-22) Glucose 88 (80-110) mg/dL Calcium 9.6 (8.4-10.2) mg/dL Magnesium 2.1 (1.6-2.3) mg/dL Total Bilirubin 0.8 (0.2-1.3) mg/dL AST 36 (14-36) IU/L ALT 23 (<35) IU/L Alkaline Phosphatase 63 (38-126) U/L Total Creatine Kinase 119 (30-135) U/L Troponin I < 0.012 < 0.012 (0.01-0.034) ng/mL Total Protein 8.1 (6.3-8.2) g/dL Albumin 4.3 (3.5-5.0) g/dL Globulin 3.8 (1.7-4.1) g/dL Albumin/Globulin Ratio 1.1 (1.0-2.8) Lipase 136 (23-300) U/L SARS-CoV-2 (PCR) Negative (Negative) Influenza A (RT-PCR) Flu a negative (NEGATIVE) Influenza B (RT-PCR) Flu b negative (NEGATIVE) RSV (PCR) Negative (Negative) Imaging Data Chest x-ray: Radiologist's Impression: Close Chest X-Ray (Signed) Kamini Lund - 04/23/23 Lumbar Spine MRI (Signed) Kenan Smith - 01/08/23 Injection Lumbar, Sacrum (Signed) Janna Yanez - 11/20/22 Injection Lumbar, Sacrum (Signed) Onesimo Merino - 05/29/22 Vascular Ultrasound (Signed) Rasheed Renee - 05/20/22 Ribs X-Ray (Signed) Wesley Hendricks - 03/29/22 Thoracic Spine MRI (Signed) Fidencio Pimentel - 02/20/22 Lumbar Spine MRI (Signed) Janna Yanez - 05/28/21 Thoracic Spine X-Ray (Signed) JamesScottie dubose - 05/17/21 Lumbar Spine X-Ray (Signed) Josué Mclean - 05/17/21 Thoracic Spine MRI (Signed) MargaritoFidencio - 04/17/21 Bone Densitometry 01/13/20 Shoulder MRI (Signed) Missael Plummer - 11/18/18 Lumbar Spine MRI (Signed) Margarito,Fidencio - 11/18/18 Abdomen/Pelvis CT (Signed) MargaritoFidencio - 10/25/18 Brain MRI (Signed) Tahmina Snyder - 10/11/18 Telemetry Strips 03/24/18 Abdominal Arterial Study US (Signed) Fidencio Pimentel - 12/30/17 Launch?Image [address] [address] XRay Report Signed Patient: Rita Garibay MR#: [id number] : 1945 Acct:[id number] Age/Sex: 77 / F Date of Service: 04/23/23 Loc: ED Accession Number: [id number] Procedure: XR chest 1V Ordering Provider: Raven Rodriguez D.O. PROCEDURE: XR CHEST 1V INDICATIONS: chest pain TECHNIQUE: One view of the chest was acquired. COMPARISON: [facility], CHEST 1 VIEW, 07/11/2013, 1:59. FINDINGS: Surgical changes and devices: None. Lungs and pleura: Lungs are clear. No pleural effusions or pneumothorax. Mediastinum: Mediastinal contours appear normal. Heart size is normal. Bones and chest wall: No suspicious bony lesions. Overlying soft tissues appear unremarkable. IMPRESSION: No acute cardiopulmonary abnormality is seen. Dictated by: Kamini Lund M.D. on 04/23/2023 at 9:30 Approved by: Kamini Lund M.D. on 04/23/2023 at 9:31 ECG Data Attestation: I personally reviewed and interpreted this ECG as follows: Prior ECG tracings: available for review Interpretation: Sinus bradycardia rate of 54 [place] 160 QRS 84 QTC 400, nonspecific change compared to prior from 07/11/[address] elevation depression appreciated. EKG 2. Inadequate tracing in 2 3 AVF With appears to be some fact. Sinus bradycardia rate of 53 [place] 156 QRS 82 QTC of 407. Was repeated a 3rd time EKG 3. Shows no acute change. Rate of 52 [place] 156 QRS is 74 QTC of 4 3 with sinus bradycardia. MDM Narrative Medical decision making narrative: 77-year-old female with left-sided chest pain been present for approximately 24 hours did resolve for preoperative time but has otherwise been persistent. Patient does have some risk factors with hypertension and dyslipidemia. Patient of note also her 10 days ago so she has been grieving. Labs CBC is appropriate, CMP shows normal electrolytes renal function, BUN LFTs are negative, troponin is negative. Chest x-ray shows no acute change. EKG shows some nonspecific change no dynamic changes. Patient received aspirin here in the emergency department states symptoms are present but very mild. Patient has had fairly persistent chest pain since last night greater than 12 hours with negative troponin x2, otherwise appropriate CBC CMP LFTs no acute changes on chest x-ray and EKG. Patient felt appropriate for discharge. Discussed with patient she feels comfortable with this plan. She plans to reach out for her cardiology team as well to follow-up. Was noted to be somewhat hypertensive patient will continue to follow her blood pressure. Discussed return precautions or she is having changing or symptoms. Patient did meet with [employer]CH[employer] for resources from grief, she also has potential resource as her was part of hospice and she was told that they would also reach out to her. Discharge Plan Departure Patient Disposition: Home Clinical Impression: Chest pain Instructions: DI for Chest Pain Activity Restrictions/Additional Instructions: Follow up for recheck. Continue your home medications as prescribed. If you are having persistent symptoms new or worsening chest pain, shortness of breath, lightheadedness or passing out, persistent vomiting, new swelling of extremities or other new or concerning changes please return for re-evaluation. Prescriptions: No Action atorvastatin 20 mg tablet 20 mg PO DAILY metoprolol succinate 25 mg tablet extended release 24 hr 25 mg PO DAILY losartan 25 mg tablet 25 mg PO DAILY ibuprofen [Advil] 200 mg tablet 200 mg PO Q6H PRN Hold Instructions: Home Medication placed on hold at Doctor's office gabapentin 300 mg capsule 300 mg PO .COMPLEX Qty: 90 2RF Rx Instructions: 1-2 PO Tid to begin at HS and titrate to pain relief Referrals: Miscellaneous,Doctor, MD [Primary Care Provider] - Stand Alone Forms: Patient Portal/API
[2023-04-23 09:57] LABS: Troponin I < 0.012 ng/mL (0.01-0.034)
[2023-04-23 11:32] LABS: Prothrombin Time 11.8 SECONDS (9.4-12.5)
[2023-04-23 11:35] LABS: PTT Partial Thromboplastin Tim 26 SECONDS (25.1-36.5)
[2023-04-23 11:44] LABS: COVID-19 CEPHEID 4-PLEX PCR Negative (Negative); Influenza A - CEPHEID Flu A NEGATIVE (NEGATIVE); Influenza B - CEPHEID Flu B NEGATIVE (NEGATIVE); Respiratory Syncytial Virus Negative (Negative)
[2023-04-23 11:51] LABS: Troponin I < 0.012 ng/mL (0.01-0.034)
[2023-04-23 12:05] VITALS: BP 176/75; PULSE 55; RESP 45; O2SAT 95
[2023-04-23 12:15] VITALS: PULSE 53; RESP 25; O2SAT 94
[2023-04-23 12:30] VITALS: PULSE 54; RESP 20; O2SAT 95
[2023-04-23 12:45] VITALS: PULSE 54; RESP 22; O2SAT 96
[2023-04-23 13:00] VITALS: TEMP 37.1
--- NOTE | 2023-04-23 13:15 | CM.SWNOTE ---
ED PLATING OPERATOR Note PLATING OPERATOR receives consult due to patient's recent loss of her . It is reported that patient's was under the care of [facility]. PLATING OPERATOR enters room to meet patient. Patient is 77 y/o female who presents to ED due to concern for chest pain. Patient presents as A/Ox4, patient endorses she resides in [place], patient endorses she has a lot of support from friends and neighbors in [facility] and has a step daughter in [facility] and a niece in [place]. Patient endorses she is going on a trip with family to [place] tomorrow and will return next week. Patient endorses she wanted to get checked out prior to being on a plane. PLATING OPERATOR provides patient with [facility] grief resources, patient states her friend is a hospice nurse and she has been a great support to patient as well. PLATING OPERATOR calls [facility] regarding patient with patient consent to inquire further about grief services for patient. Hospice team will coordinate reaching out to patient next week. Plan: patient to d/c to home upon medical clearance, patient to continue to receive support from friends and family, [facility] to reach out for grief services. DELGADO Cardoso
== END 2023-04-23 13:01 | disposition home or self-care (01) ==
PROVIDERS: Emergency Provider Emergency Medicine; Family Provider Physical Medicine & Rehabilitation
DX: R07.9 Chest pain, unspecified (principal); I10 Essential (primary) hypertension; Z20.822 Contact with and (suspected) exposure to COVID-19
CPT/HCPCS: 0241U; 36415; 71045; 80053; 82550; 83690; 83735; 84484; 85025; 85610; 85730; 93005; 93010; 99284

== ENCOUNTER → 2023-06-18 | Outpatient (CLI) | payer MEDICARE, OTHER, SELFPAY ==
--- NOTE | 2023-06-18 12:52 | DI.MG.S_ITS ---
BILATERAL DIGITAL SCREENING MAMMOGRAM 3D/2D WITH CAD: 06/18/2023 CLINICAL: Routine screening. Comparison is made to exam dated: 06/09/2007 mammogram - [facility]. Both breasts are heterogeneously dense, which may obscure small masses (category c / 51-75% glandular tissue). Current study was also evaluated with a Computer Aided Detection (CAD) system. No significant masses, calcifications, or other findings are seen in either breast. There has been no significant interval change. IMPRESSION: NEGATIVE There is no mammographic evidence of malignancy. A 1 year screening mammogram is recommended. Based on the Tyrer Cuzick model (a risk assessment model) the patient's lifetime risk is 5.5% and her 10 year risk is 0.0%. According to the ACR, ACS, and NCCN guidelines, an annual breast MRI exam along with mammogram is recommended if the patient's lifetime risk is 20% or greater. This exam was interpreted at Station ID: [id number]. NOTE: For mammograms, a report in lay terms will be sent to the patient. Approximately 15% of breast malignancies will not be visualized mammographically. In the management of a palpable breast mass, a negative mammogram must not discourage biopsy of a clinically suspicious lesion. Electronically Signed By: Nicole Cabral M.D., PH.D omar/jairo:06/23/2023 12:43:06 letter sent: Normal Exam ACR BI-RADS Category 1: Negative [id number]
== END ==
LOC: MAMMO 12:52
PROVIDERS: Family Provider Physical Medicine & Rehabilitation; Referring Provider Family Medicine; Visit Provider Family Medicine
DX: Z12.31 Encounter for screening mammogram for malignant neoplasm of breast (principal); R92.333 Mammographic heterogeneous density, bilateral breasts
CPT/HCPCS: 77063; 77067

== ENCOUNTER 2023-08-03 06:56 | Day surgery (SDC) | payer MEDICARE, OTHER, SELFPAY ==
[2023-08-03 07:33] VITALS: BP 154/81; PULSE 76; RESP 17; TEMP 36.4; O2SAT 98
[2023-08-03] MEDS: LACTATED RINGERS 1,000 ML 42 ML IV (07:35)
--- NOTE | 2023-08-03 07:57 | P.HP_ITS ---
History of Present Illness History of Present Illness Date Patient Seen: 08/03/23 Time Patient Seen: 07:57 Chief complaint: Dx Colonoscopy Narrative: Here for colonoscopy. Reports a personal history of colon polyps at her last exam some 6 years ago. [facility] Medical History Compression fracture of T9 vertebra Compression fracture of T8 vertebra Herniated nucleus pulposus, L5-S1, right Osteoporosis Facet arthropathy, lumbar Lumbar radiculopathy T12 compression fracture Lumbago Social History household members: spouse Smoking Status: Never smoker alcohol intake: current Meds Home Medications and Allergies Home Medications Medication Instructions Recorded Confirmed Type atorvastatin 20 mg tablet 20 mg PO DAILY 08/14/20 08/03/23 History metoprolol succinate 25 mg 25 mg PO DAILY 08/28/20 08/03/23 History tablet,extended release 24 hr ibuprofen 200 mg tablet (Advil) 200 mg PO Q6H PRN Pain (Scale 02/19/22 08/03/23 History Score 4-6) losartan 25 mg tablet 50 mg PO BID 02/19/22 08/03/23 History Allergies Allergy/AdvReac Type Severity Reaction Status Date / Time methylprednisolone AdvReac Intermediate Fainting Verified 08/03/23 07:15 [From Depo-Medrol] Review of Systems Review of Systems ROS: Yes All systems reviewed with the patient and are negative except as otherwise documented Exam Vital Signs (past 8 hours): - 08/03/23 07:33 Temperature 97.5 F L Pulse Rate 76 Respiratory Rate 17 Blood Pressure 154/81 H Pulse Oximetry 98 Oxygen Delivery Method Room Air Oxygen Delivery Method Room Air Const General: cooperative HENMT Head: normal to inspection Eyes General: appearance normal, both eyes and all related structures Neck Neck: normal visual inspection Chest Chest: normal inspection of the chest Resp Effort & Inspection: normal respiratory effort Cardio Rate: regular rate GI Inspection: normal to inspection Skin General: no rashes or lesions noted Neuro General: patient alert and patient awake Extrem General: normal to inspection and no pedal edema Psych Appearance: grossly normal Assessment & Plan Assessment & Plan narrative: 78-year-old female with a personal history of colon polyps. Surveillance colonoscopy is pursued today.
--- NOTE | 2023-08-03 07:58 | PM.PREOP ---
Pre-operative Note Interval Note History & Physical reviewed/Exam performed by Physician: Yes Changes to H&P: No ASA Class (for procedural sedation): II
--- NOTE | 2023-08-03 08:26 | PM.OP.COLON ---
Operative Date/Time/Diagnoses Date of procedure: 08/03/23 Time of procedure: 08:27 Pre-op diagnosis: History of colon polyps Post-op diagnosis: same Procedure & Clinicians Study performed: Colonoscopy Same procedure as scheduled: Yes Indications: History of colon polyps Surgeon: Dain Guerra Procedure Notes SCOAP/Timeout: Done Procedure in detail: After the risks and benefits were explained, written and verbal informed consent was obtained. The patient was brought into the procedure room and placed into the left lateral decubitus position. Please see anesthesia note for sedation details. Digital rectal examination was accomplished. The scope was introduced into the patient and advanced under direct visualization to the cecum as identified by the appendiceal orifice and ileocecal valve. The scope was slowly withdrawn to carefully examine the mucosa for any defects or lesions. Comprehensive imaging was accomplished throughout the rectum including the dentate line. The colon was decompressed, the scope was then removed from the patient who tolerated the procedure well. Pediatric colonoscope Bowel prep adequate Scope withdrawal time: 8 minutes Sedation minutes: 24 Specimen(s): none sent Complications: none Impression: The navigation to cecum was quite difficult. Colon was very tortuous. There was some diverticulosis in the left colon. No significant polyps mass lesions or inflammatory features identified throughout. Grade 1 internal hemorrhoids with hypertrophied anal papillae were noted. Otherwise the exam was within normal limits. Endoscopic diagnosis 1. Scant sigmoid diverticulosis 2. Grade 1 hemorrhoids 3. Tortuous colon 4. Otherwise visually unremarkable exam Post-procedure Plan for aftercare: 1. Continue to follow along in primary care. 2. Next colonoscopy would typically be in 7-10 years so at this time further screening is not recommended. Disposition: PACU
[2023-08-03 08:30] VITALS: BP 128/58; PULSE 71; RESP 19; TEMP 36.6; O2SAT 97
[2023-08-03 08:35] VITALS: BP 141/69; PULSE 65; RESP 12; O2SAT 98
[2023-08-03 08:40] VITALS: BP 132/59; PULSE 74; RESP 19; O2SAT 98
[2023-08-03 08:45] VITALS: BP 150/57; PULSE 67; RESP 12; O2SAT 98
[2023-08-03 08:52] VITALS: BP 149/67; PULSE 61; RESP 12; TEMP 36.2; O2SAT 98
== END 2023-08-03 09:06 | disposition home or self-care (01) ==
PROVIDERS: Family Provider Physical Medicine & Rehabilitation; Referring Provider Internal Medicine Gastroenterology; Visit Provider Internal Medicine Gastroenterology
PROC: 0DJD8ZZ Inspection of Lower Intestinal Tract, Via Natural or Artificial Opening Endoscopic (ICD-10-PCS; CPT 45378; principal; 2023-08-03 08:00)
DX: Z12.11 Encounter for screening for malignant neoplasm of colon (principal); Z86.010 Personal history of colon polyps; K57.30 Diverticulosis of large intestine without perforation or abscess without bleeding; K64.0 First degree hemorrhoids
CPT/HCPCS: G0105; J2704

== ENCOUNTER 2023-09-10 09:41 | Outpatient (CLI) | payer MEDICARE, OTHER, SELFPAY ==
[2023-09-10] VITALS (8 sets, daily range): BP systolic 137–190; BP diastolic 64–84; PULSE 52–63; RESP 11–20; TEMP 36.9; O2SAT 94–99
--- NOTE | 2023-09-10 10:15 | DI.RAD.S_ITS ---
PROCEDURE: PAIN L/S TRANSFORAM INJECT ESPERANZA COMPARISON: None. INDICATIONS: Bilateral L4-5 transforaminal ROBIN FINDINGS: Intra procedural examination demonstrating appropriate positions of the needles for bilateral L4-5 transforaminal epidural spinal injections. IMPRESSION: Intra procedural examination demonstrating appropriate positions of the needles. Dictated by: Kenan Smith M.D. on 09/10/2023 at 14:27 Approved by: Kenan Smith M.D. on 09/10/2023 at 14:27
[2023-09-10] MEDS: MIDAZOLAM 2 MG/2 ML VIAL IV (10:59)
[2023-09-10] MEDS: iopamidoL 15 ML VIAL 3 ML INJ (11:03)
[2023-09-10] MEDS: DEXAMETHASONE 10 MG/ML VIAL 20 MG INJ (11:03)
[2023-09-10] MEDS: BETAMETHASONE 30 MG/5 ML MDV 12 MG INJ (11:04)
[2023-09-10] MEDS: BUPIVACAINE 0.25% (PF) VIAL 2 ML INJ (11:04)
--- NOTE | 2023-09-10 11:17 | PM.PROC.IR.1 ---
Date/Time/Diagnoses Date of procedure: 09/10/23 Time of procedure: 11:17 Pre-procedure diagnosis: 1. FORAMINAL STENOSIS WITH LE SYMPTOMS Procedure Notes Procedure: 1. FLUOROSCOPICALLY GUIDED CONTRAST CONTROLLED TRANSFORAMINAL EPIDURAL STEROID INJECTION - BILATERAL L4/5 TFESI Indications: Rita is referred by Dr. Lazaro for treatment of Foraminal Stenosis with bilateral LE Symptoms Physician: Leland Lopez Total Fluoroscopy time (seconds): 23 Total sedation minutes: 13 Complications: none Procedure in detail & Post-procedure care: FINDINGS Foraminal Nerve Root Compression secondary to disc disease and facet hypertrophy DESCRIPTION OF PROCEDURE Following review of allergy and review of potential side effects and complications, including, but not necessarily limited to, infection, allergic reaction, local tissue breakdown, stroke, temporary or permanent nerve injury, paralysis, and possible , the patient indicated that the patient understood and agreed to proceed. An informed consent document was signed by the patient, witnessed by a nurse, and placed in the patient's chart. Additionally, other treatment options including medications, modalities, and physical therapy were reviewed with the patient. After review of previous anaesthesic history and IV conscious sedation the patient was deemed safe to proceed with today?s procedure with IV conscious sedation as ASA class II designation. Safety time-out was performed to confirm patient ID, procedure to be performed and site of procedure. IV sedation was accomplished with a combination of 2mg of Versed was administered by the RN after DO order, titrated to patient comfort during the course of the procedure while the patient remained responsive to all verbal commands In the prone position following sterile prep and drape of the lumbar region, the right L4/5 posterior neuroforamen was identified fluoroscopically. The skin was anesthetized via a 25-gauge 1.5-inch needle with 1% lidocaine solution. At this point, a 25-gauge 3.5-inch spinal needle was atraumatically introduced and advanced under fluoroscopic guidance through the posterior right L4/5 neuroforamen to approximately the anterior aspect of the canal. Depth was confirmed on lateral view. Following negative aspiration, injection of approximately 1.5cc of Isovue 200 under live fluoroscopy in the AP view confirmed excellent flow along the nerve root, into the epidural space without vascular or intrathecal uptake observed Radiological data, including multiple fluoroscopic views of the lumbosacral spine, reveal a spinal needle at the right L4/5 posterior neuroforamen. Subsequent views show flow of contrast material flowing superiorly and inferiorly along the nerve root confirming epidural flow. Subsequently, a test dose of 1.5cc of 1% lidocaine solution was administered and patient was observed for two minutes for signs or symptoms of complications, including abdominal pain, shortness of breath, bilateral upper or lower extremity weakness, nausea and vomiting, prior to steroid injection. At this point, a total of 2cc or 10mg of dexamethasone and 6mg betamethasone was injected without incident. Attention was then refocused to the left L4/5 level where the identical procedure was replicated. The procedure tolerated the procedure well without signs or symptoms of complications prior to transfer to the recovery area continued monitoring without incident. The patient was then transferred to the recovery area where they were observed for an appropriate time after the injection. The patient reported a VAS score of 7 prior to the procedure and a post-procedure VAS of 0. POST OP INSTRUCTIONS The patient was provided a Pain Log to continue to record their response to the target-specific procedure prior to follow-up visit with their referring physician. Additionally, specific post-injection care instructions and a contact number to our office were provided if concerns arise regarding possible complications associated with the procedure are suspected.
--- NOTE | 2023-09-10 11:57 | PC.NURSE ---
Recovery/Discharge Patient with some weakness to lower legs upon return to the recovery chair in DI pain. Patient able to stand but unable to bear weight without legs buckling. Patient transferred to chair from wheelchair with 2 person assist. Patient also complaining of feeling light headed. Patient given some cookies and water to sip and tolerated that well. After 10 minutes in the recovery chair patient moving both legs on demand. Patient stood up from chair with this RN and Roya Vaz RN as a stand-by assist. Patient able to bear weight and took 4 steps forward and back from chair. Patient stated that her legs felt stronger and her head was clearing. Patient lives alone but reports she has neighbors and friends close by that will help her. Patient stated that she felt safe to go home. Patient discharged home via POV with friend Masha as her, patient denying weakness or light headedness upon discharge.
== END 2023-09-10 11:40 | disposition home or self-care (01) ==
PROVIDERS: PCP Family Medicine; Referring Provider Physical Medicine & Rehabilitation; Visit Provider Physical Medicine & Rehabilitation
DX: M48.061 Spinal stenosis, lumbar region without neurogenic claudication (principal); M51.16 Intervertebral disc disorders with radiculopathy, lumbar region; M47.26 Other spondylosis with radiculopathy, lumbar region
CPT/HCPCS: 64483; 99152; J0702; J1100; J2250; J3490

== ENCOUNTER → 2023-11-14 08:52 | Outpatient (CLI) | payer MEDICARE, OTHER, SELFPAY ==
--- NOTE | 2023-11-14 09:30 | DI.MRI.S_ITS ---
PROCEDURE: MR LUMBAR SPINE WO CON INDICATIONS: LOW BACK PAIN TECHNIQUE: Noncontrast sagittal T1 spin echo and T2 fast echo, sagittal STIR, and T2 fast spin echo through the lumbar spine. In cases with scoliosis, additional coronal T2 fast spin echo may be performed. COMPARISON: [facility], MR, MR LUMBAR SPINE WO CON, 01/08/2023, 12:49. FINDINGS: Image quality: Excellent. Alignment and Curvature: There is normal bony alignment. Bone Marrow: Type 2 Modic changes at L5-S1 No acute vertebral body compression fractures. Chronic compression deformity T12 vertebral body, with 2 millimeter endplate retropulsion. Spinal Cord: Conus medullaris terminates at the L1 level. Visualized cord demonstrates normal signal and size. Paraspinous Soft Tissues: No paravertebral masses. T12-L1: Normal appearance. L1-L2: Disc desiccation. Broad-based disc bulge. Small facet effusions. L2-L3: Disc desiccation. Broad-based disc bulge, facet hypertrophy and ligamentum flavum hypertrophy. Small facet effusions. Tpwl-ta-ibpjgbmn spinal canal narrowing and mild to moderate right neural foraminal narrowing. Moderate narrowing of the right lateral recess. L3-L4: Disc desiccation, broad-based disc bulge, ligamentum flavum hypertrophy and facet hypertrophy. Mild spinal canal narrowing. Mild left neural foraminal narrowing. L4-L5: Broad-based disc bulge, facet hypertrophy, small facet effusions, mild ligamentum flavum hypertrophy. Moderate left neural foraminal narrowing. L5-S1: Broad-based disc bulge, facet hypertrophy and arthrosis. Severe right and left neural foraminal narrowing. IMPRESSION: Multilevel degenerative disc disease and facet arthrosis: Up to severe neural foraminal narrowing at L5-S1. Up to [id number] spinal canal narrowing at L2-3. Dictated by: Collin Huang M.D. on 11/16/2023 at 10:09 Approved by: Collin Huang M.D. on 11/16/2023 at 10:19
== END ==
PROVIDERS: PCP Family Medicine; Referring Provider Neurological Surgery; Visit Provider Neurological Surgery
DX: M51.36 Other intervertebral disc degeneration, lumbar region (principal); M47.816 Spondylosis without myelopathy or radiculopathy, lumbar region; M48.061 Spinal stenosis, lumbar region without neurogenic claudication; M51.37 Other intervertebral disc degeneration, lumbosacral region; M47.817 Spondylosis without myelopathy or radiculopathy, lumbosacral region; M48.07 Spinal stenosis, lumbosacral region; E67.3 Hypervitaminosis D; M54.50 Low back pain, unspecified
CPT/HCPCS: 36415; 72148; 82306

== ENCOUNTER → 2023-11-14 09:24 | Outpatient (CLI) | payer MEDICARE, OTHER, SELFPAY ==
[2023-11-14 11:40] LABS: Vitamin D 25 Hydroxy (D3) 53.3 ng/mL (30.0-100.0)
== END ==
PROVIDERS: PCP Family Medicine; Referring Provider Family Medicine; Visit Provider Family Medicine
DX: E67.3 Hypervitaminosis D (principal)
CPT/HCPCS: 36415; 82306

== ENCOUNTER 2023-12-15 12:30 | Outpatient (CLI) | payer MEDICARE, OTHER, SELFPAY ==
[2023-12-15] VITALS (11 sets, daily range): BP systolic 133–201; BP diastolic 63–84; PULSE 52–61; RESP 11–18; TEMP 36.9; O2SAT 95–98
--- NOTE | 2023-12-15 13:00 | DI.RAD.S_ITS ---
PROCEDURE: PAIN L/S TRANSFORAMINAL INJECT INDICATIONS: right L5-S1 transforaminal ROBIN COMPARISON: [facility], , PAIN L/S TRANSFORAMINAL INJECT, 11/20/2022, 12:42. FINDINGS: Fluoroscopic spot filming was performed to verify placement of spinal needles at the L5-S1 level(s), as labeled on the films. Appropriate location(s) of the needle tip(s) was confirmed by injection of iodinated contrast. IMPRESSION: L5-S1 injection, see operative note for full details. Dictated by: Wesley Hendricks M.D. on 12/15/2023 at 17:17 Approved by: Wesley Hendricks M.D. on 12/15/2023 at 17:17
[2023-12-15] MEDS: MIDAZOLAM 2 MG/2 ML VIAL IV (13:29)
[2023-12-15] MEDS: BUPIVACAINE 0.25% (PF) VIAL 2 ML INJ (13:33)
[2023-12-15] MEDS: iopamidoL 15 ML VIAL 3 ML INJ (13:33)
[2023-12-15] MEDS: DEXAMETHASONE 10 MG/ML VIAL INJ (13:34)
[2023-12-15] MEDS: BETAMETHASONE 30 MG/5 ML MDV 6 MG INJ (13:34)
--- NOTE | 2023-12-15 13:48 | P.PCN_ITS ---
Date/Time/Diagnoses Date of procedure: 12/15/23 Time of procedure: 13:48 Pre-procedure diagnosis: FORAMINAL STENOSIS WITH LE SYMPTOMS Post-procedure diagnosis: same Procedure Notes Procedure: 1. FLUOROSCOPICALLY GUIDED CONTRAST CONTROLLED TRANSFORAMINAL EPIDURAL STEROID INJECTION - RIGHT L5/S1 TFESI Indications: Rita is referred by Dr. Lazaro for treatment of Foraminal Stenosis with Right LE Symptoms Physician: Leland Lopez Total Fluoroscopy time (seconds): 6 Total sedation minutes: 11 Complications: none Procedure in detail & Post-procedure care: FINDINGS Foraminal Nerve Root Compression secondary to disc disease and facet hypertrophy DESCRIPTION OF PROCEDURE Following review of allergy and review of potential side effects and complications, including, but not necessarily limited to, infection, allergic re action, local tissue breakdown, stroke, temporary or permanent nerve injury, paralysis, and possible , the patient indicated that the patient understood and agreed to proceed. An informed consent document was signed by the patient, witnessed by a nurse, and placed in the patient's chart. Additionally, other treatment options including medications, modalities, and physical therapy were reviewed with the patient. After review of previous anaesthesic history and IV conscious sedation the patient was deemed safe to proceed with today?s procedure with IV conscious sedation as ASA class II designation. Safety time-out was performed to confirm patient ID, procedure to be performed and site of procedure. IV sedation was accomplished with a combination of 2mg of Versed was administered by the RN after DO order, titrated to patient comfort during the course of the procedure while the patient remained responsive to all verbal commands In the prone position following sterile prep and drape of the lumbar region, the right L5/S1 posterior neuroforamen was identified fluoroscopically. The skin was anesthetized via a 25-gauge 1.5-inch needle with 1% lidocaine solution. At this point, a 25-gauge 3.5-inch spinal needle was atraumatically introduced and advanced under fluoroscopic guidance through the posterior right L5/S1 neuroforamen to approximately the anterior aspect of the canal. Depth was confirmed on lateral view. Following negative aspiration, injection of approximately 1.5cc of Isovue 200 under live fluoroscopy in the AP view confirmed excellent flow along the nerve root, into the epidural space without vascular or intrathecal uptake observed Radiological data, including multiple fluoroscopic views of the lumbosacral spine, reveal a spinal needle at the right L5/S1 posterior neuroforamen. Subsequent views show flow of contrast material flowing superiorly and inferiorly along the nerve root confirming epidural flow. Subsequently, a test dose of 1.5 cc of 1% lidocaine solution was administered and patient was observed for two minutes for signs or symptoms of complications, including abdominal pain, shortness of breath, bilateral upper or lower extrem ity weakness, nausea and vomiting, prior to steroid injection. At this point, a total of 2cc or 10mg of dexamethasone and 6mg of betamethasone was injected without incident. The procedure tolerated the procedure well without signs or symptoms of complications prior to transfer to the recovery area continued monitoring without incident. The patient was then transferred to the recovery area where they were observed for an appropriate time after the injection. The patient reported a VAS score of 8 prior to the procedure and a post- procedure VAS of 1. POST OP INSTRUCTIONS The patient was provided a Pain Log to continue to record their response to the target-specific procedure prior to follow-up visit with their referring physician. Additionally, specific post-injection care instructions and a contact number to our office were provided if concerns arise regarding possible complications associated with the procedure are suspected.
== END 2023-12-15 14:15 | disposition home or self-care (01) ==
LOC: RAD 12:30
PROVIDERS: PCP Family Medicine; Referring Provider Physical Medicine & Rehabilitation; Visit Provider Physical Medicine & Rehabilitation
DX: M51.17 Intervertebral disc disorders with radiculopathy, lumbosacral region (principal)
CPT/HCPCS: 64483; 99152; J0702; J1100; J2250; J3490

== ENCOUNTER → 2024-04-28 07:43 | Outpatient (CLI) | payer MEDICARE, OTHER, SELFPAY ==
[2024-04-28 08:44] LABS: Add Manual Diff / Slide Review NO; Basophils Absolute Auto 100 /uL (0-100); Basophils Percent Auto 1.4 % (0-2); Eosinophils Absolute Auto 200 /uL (0-450); Eosinophils Percent Auto 2.9 % (2-4); Hematocrit 43.1 % (36-46); Hemoglobin 14.4 g/dL (12.0-16.0); Lymphocytes Absolute Auto 2900 /uL (1100-4500); Lymphocytes Percent Auto 33.5 % (25-40); Mean Corpuscular HGB Conc 33.5 % (30-36); Mean Corpuscular Hemoglobin 30.6 PG (26-34); Mean Corpuscular Volume 91.5 fL (80-100); Monocytes Absolute Auto 800 /uL (0-900); Monocytes Percent Auto 8.8 % (3-14); Neutrophils Absolute Auto 4600 /uL (1500-7000); Neutrophils Percent Auto 53.4 % (50-75); Platelet Count 228 X10^3/uL (150-400); Red Blood Cell Count 4.71 X10^6/uL (4.0-5.2); Red Cell Distribution Width 13.3 % (11.6-14.8); White Blood Cell Count 8.6 X10^3/uL (4.5-11.0)
[2024-04-28 09:23] LABS: Alanine Aminotransferase 22 IU/L (<35); Albumin 4.2 g/dL (3.5-5.0); Albumin Globulin Ratio 1.4 (1.0-2.8); Alkaline Phosphatase 72 U/L (38-126); Aspartate Aminotransferase 29 IU/L (14-36); BUN Creatinine Ratio 22.5 (6-22); Bilirubin Total 0.7 mg/dL (0.2-1.3); Blood Urea Nitrogen 20 mg/dL (7-17); Calcium 9.2 mg/dL (8.4-10.2); Carbon Dioxide 26 mmol/L (22-32); Chloride 106 mmol/L (98-107); Cholesterol 143 mg/dL (140-199); Estimated Glomerular Filt Rate > 60 mL/min (>60); Globulin 3.1 g/dL (1.7-4.1); Glucose 103 mg/dL (80-110); HDL Cholesterol 47 mg/dL (40-60); HEMOLYSIS < 15 (0-50); LDL Cholesterol Calculated 70 mg/dL (<100); Potassium 4.4 mmol/L (3.4-5.1); Sodium 139 mmol/L (137-145); Total Protein 7.3 g/dL (6.3-8.2); Triglycerides 132 mg/dL (35-150)
== END ==
PROVIDERS: PCP Family Medicine; Referring Provider Family Medicine; Visit Provider Family Medicine
DX: E78.00 Pure hypercholesterolemia, unspecified (principal); R53.83 Other fatigue; R73.01 Impaired fasting glucose
CPT/HCPCS: 36415; 80053; 80061; 85025

== ENCOUNTER → 2024-06-20 09:16 | Outpatient (CLI) | payer MEDICARE, OTHER, SELFPAY ==
--- NOTE | 2024-06-20 09:17 | DI.MG.S_ITS ---
MM screening mammo BI: 06/20/2024. BI-RADS: 1 CLINICAL: 78-year old female for bilateral screening mammogram. Tyrer-Cuzick lifetime risk of 3.9%. No personal or first-degree family history of breast cancer. PRIOR EXAMS 06/18/2023. MAMMOGRAPHY TECHNIQUE: 2D and 3D (tomosynthesis) digital mammographic views obtained, with additional images as needed for full coverage. Current study was also evaluated with a Computer Aided Detection (CAD) system. DENSITY C. The breasts are heterogeneously dense, which may obscure small masses. MAMMOGRAPHY FINDINGS Bilateral: No suspicious mass, asymmetry, microcalcification, or other abnormality seen. IMPRESSION: * No evidence of malignancy. RECOMMENDATIONS Bilateral * Annual screening mammography. OVERALL ASSESSMENT CATEGORY BI-RADS-1: Negative. [employer] recommends annual screening mammography beginning at age 40 for women with average risk of breast cancer. ELECTRONICALLY SIGNED: Roland Morris M.D. on 06/20/2024 at 05:04:21 PM PT Interpreting Station ID: [id number]
== END ==
PROVIDERS: PCP Family Medicine; Referring Provider Family Medicine; Visit Provider Family Medicine
DX: Z12.31 Encounter for screening mammogram for malignant neoplasm of breast (principal); R92.333 Mammographic heterogeneous density, bilateral breasts
CPT/HCPCS: 77063; 77067

== ENCOUNTER → 2024-07-03 10:47 | Outpatient (CLI) | payer MEDICARE, OTHER, SELFPAY ==
--- NOTE | 2024-07-03 10:50 | DI.MRI.S_ITS ---
PROCEDURE: MR LUMBAR SPINE WO CON INDICATIONS: Lumbar stenosis TECHNIQUE: Noncontrast sagittal T1 spin echo and T2 fast echo, sagittal STIR, and T2 fast spin echo through the lumbar spine. In cases with scoliosis, additional coronal T2 fast spin echo may be performed. COMPARISON: [facility], MR, MR LUMBAR SPINE WO CON, 11/14/2023, 8:54. FINDINGS: Image quality: Diagnostic Alignment and Curvature: No significant spondylolisthesis. Bone Marrow: Edematous Modic changes again seen at L5-S1, also involving the inferior endplate of L4. This is slightly increased. T12 height loss again seen without acute edema. Multilevel disc desiccation and height loss. Spinal Cord: Cord terminates in expected position Paraspinous Soft Tissues: No paravertebral masses or fluid collections T11-T12: Moderate diffuse disc bulge and facet arthropathy. Mild central narrowing. Mild bilateral neural foraminal narrowing. T12-L1: Small diffuse disc bulge. Mild facet arthropathy bilaterally. No stenosis. L1-L2: Qpel-gy-omquzqft diffuse disc bulge. Facet arthropathy also present. Ligamentum hypertrophy. There is mild displacement of the traversing right L2 nerve root in the subarticular recess. L2-L3: Moderate diffuse disc bulge. More focal protrusion seen in the right subarticular and foraminal zone. Awsd-jz-gblfxiwa central narrowing particularly with displacement of the right subarticular recess. Moderate facet arthropathy. Ligamentum hypertrophy. Moderate right neural foraminal narrowing. L3-L4: Moderate diffuse disc bulge and facet arthropathy with ligamentum hypertrophy. Moderate central narrowing affecting the right greater than left subarticular recesses. Mild left and right neural foraminal narrowing. L4-L5: Moderate diffuse disc bulge and more focal protrusion in the left foraminal zone. Moderate facet arthropathy and ligamentum hypertrophy. Sfbz-gr-szwnrkvn central narrowing with partial effacement of the left subarticular recess. Moderate left and mild right neural foraminal narrowing. L5-S1: Diffuse disc bulge and moderate severe facet arthropathy with ligamentum hypertrophy. Moderate to severe bilateral neural foraminal narrowing. IMPRESSION: Overall moderate degree of spondylotic changes as described above, with some areas higher grade stenosis for example at L5-S1. These findings are not significantly changed from prior imaging. Edematous endplate changes from L4-S1 are slightly increased. No acute fracture Dictated by: Wesley Hendricks M.D. on 07/04/2024 at 9:24 Approved by: Wesley Hendricks M.D. on 07/04/2024 at 9:30
== END ==
PROVIDERS: PCP Family Medicine; Referring Provider Neurological Surgery; Visit Provider Neurological Surgery
DX: M48.061 Spinal stenosis, lumbar region without neurogenic claudication (principal); M48.07 Spinal stenosis, lumbosacral region; M51.369 Other intervertebral disc degeneration, lumbar region without mention of lumbar back pain or lower extremity pain; M51.379 Other intervertebral disc degeneration, lumbosacral region without mention of lumbar back pain or lower extremity pain; M47.816 Spondylosis without myelopathy or radiculopathy, lumbar region; M47.817 Spondylosis without myelopathy or radiculopathy, lumbosacral region; M46.06 Spinal enthesopathy, lumbar region; M46.07 Spinal enthesopathy, lumbosacral region
CPT/HCPCS: 72148

== ENCOUNTER → 2024-09-08 07:38 | Outpatient (CLI) | payer MEDICARE, OTHER, SELFPAY ==
[2024-09-08 09:18] LABS: Hemoglobin A1C% w Est Avg Glu 5.6 % (4.0-6.0)
[2024-09-09 09:13] LABS: Insulin Level Total 11.7 uIU/mL (2.6-24.9)
== END ==
PROVIDERS: PCP Family Medicine; Referring Provider Family Medicine; Visit Provider Family Medicine
DX: R73.9 Hyperglycemia, unspecified (principal)
CPT/HCPCS: 36415; 83036; 83525

== ENCOUNTER 2024-11-15 12:59 | Outpatient (CLI) | payer MEDICARE, OTHER, SELFPAY ==
[2024-11-15] VITALS (8 sets, daily range): BP systolic 156–196; BP diastolic 70–93; PULSE 59–66; RESP 14–21; TEMP 36.1; O2SAT 94–99
[2024-11-15] MEDS: MIDAZOLAM 2 MG/2 ML VIAL IV (13:47)
[2024-11-15] MEDS: DEXAMETHASONE 10 MG/ML VIAL 20 MG INJ (13:52)
[2024-11-15] MEDS: BUPIVACAINE 0.25% (PF) VIAL 2 ML INJ (13:53)
[2024-11-15] MEDS: BETAMETHASONE 30 MG/5 ML MDV 12 MG INJ (13:54)
--- NOTE | 2024-11-15 14:08 | P.PCN_ITS ---
Date/Time/Diagnoses Date of procedure: 11/15/24 Time of procedure: 14:08 Pre-procedure diagnosis: 1. FORAMINAL STENOSIS WITH LE SYMPTOMS Post-procedure diagnosis: same Procedure Notes Procedure: 1. FLUOROSCOPICALLY GUIDED CONTRAST CONTROLLED TRANSFORAMINAL EPIDURAL STEROID INJECTION - LEFT L4/5 Indications: Rita is referred by Dr. Lazaro for treatment of Foraminal Stenosis with Left LE Symptoms Physician: Leland Lopez Total Fluoroscopy time (seconds): 10 Total sedation minutes: 16 Complications: none Procedure in detail & Post-procedure care: FINDINGS Foraminal Nerve Root Compression secondary to disc disease and facet hypertrophy DESCRIPTION OF PROCEDURE Following review of allergy and review of potential side effects and complications, including, but not necessarily limited to, infection, allergic reaction, local tissue breakdown, stroke, temporary or permanent nerve injury, paralysis, and possible , the patient indicated that the patient understood and agreed to proceed. An informed consent document was signed by the patient, witnessed by a nurse, and placed in the patient's chart. Additionally, other treatment options including medications, modalities, and physical therapy were reviewed with the patient. After review of previous anaesthesic history and IV conscious sedation the patient was deemed safe to proceed with today?s procedure with IV conscious sedation as ASA class II designation. Safety time-out was performed to confirm patient ID, procedure to be performed and site of procedure. IV sedation was accomplished with a combination of 2mg of Versed administered by the RN after DO order, titrated to patient comfort during the course of the procedure while the patient remained responsive to all verbal commands In the prone position following sterile prep and drape of the lumbar region, the left L4/5 posterior neuroforamen was identified fluoroscopically. The skin was anesthetized via a 25-gauge 1.5-inch needle with 1% lidocaine solution. At this point, a 25-gauge 3.5-inch spinal needle was atraumatically introduced and advanced under fluoroscopic guidance through the posterior left L4/5 neuroforamen to approximately the anterior aspect of the canal. Depth was confirmed on lateral view. Following negative aspiration, injection of approximately 1.5 cc of Isovue 200 under live fluoroscopy in the AP view confirmed excellent flow along the nerve root, into the epidural space without vascular or intrathecal uptake observed Radiological data, including multiple fluoroscopic views of the lumbosacral spine, reveal a spinal needle at the left L4/5 posterior neuroforamen. Subsequent views show flow of contrast material flowing superiorly and inferiorly along the nerve root confirming epidural flow. Subsequently, a test dose of 1.5cc of 0.25% marcaine solution was administered and patient was observed for two minutes for signs or symptoms of complications, including abdominal pain, shortness of breath, bilateral upper or lower extremity weakness, nausea and vomiting, prior to steroid injection. At this point, a total of 3cc or 10mg of dexamethasone and 12mg of betamethasone was injected without incident. The procedure tolerated the procedure well without signs or symptoms of complications prior to transfer to the recovery area continued monitoring without incident. The patient was then transferred to the recovery area where they were observed for an appropriate time after the injection. The patient reported a VAS score of 7 prior to the procedure and a post- procedure VAS of 0. POST OP INSTRUCTIONS The patient was provided a Pain Log to continue to record their response to the target-specific procedure prior to follow-up visit with their referring physician. Additionally, specific post-injection care instructions and a contact number to our office were provided if concerns arise regarding possible complications associated with the procedure are suspected.
--- NOTE | 2024-11-15 14:09 | P.PCN_ITS ---
Date/Time/Diagnoses Date of procedure: 11/15/24 Time of procedure: 14:09 Pre-procedure diagnosis: 1. FORAMINAL STENOSIS WITH LE SYMPTOMS Post-procedure diagnosis: same Procedure Notes Procedure: 1. FLUOROSCOPICALLY GUIDED CONTRAST CONTROLLED TRANSFORAMINAL EPIDURAL STEROID INJECTION - Left L5/S1 Indications: Rita is referred by Dr. Lazaro for treatment of Foraminal Stenosis with Left LE Symptoms Physician: Leland Lopez Total Fluoroscopy time (seconds): 10 Total sedation minutes: 16 Complications: none Procedure in detail & Post-procedure care: FINDINGS Foraminal Nerve Root Compression secondary to disc disease and facet hypertrophy DESCRIPTION OF PROCEDURE Following review of allergy and review of potential side effects and complications, including, but not necessarily limited to, infection, allergic reaction, local tissue breakdown, stroke, temporary or permanent nerve injury, paralysis, and possible , the patient indicated that the patient understood and agreed to proceed. An informed consent document was signed by the patient, witnessed by a nurse, and placed in the patient's chart. Additionally, other treatment options including medications, modalities, and physical therapy were reviewed with the patient. After review of previous anaesthesic history and IV conscious sedation the patient was deemed safe to proceed with today?s procedure with IV conscious sedation as ASA class II designation. Safety time-out was performed to confirm patient ID, procedure to be performed and site of procedure. IV sedation was accomplished with a combination of 2mg of Versed was administered by the RN after DO order, titrated to patient comfort during the course of the procedure while the patient remained responsive to all verbal commands In the prone position following sterile prep and drape of the lumbar region, the Left L5/S1 posterior neuroforamen was identified fluoroscopically. The skin was anesthetized via a 25-gauge 1.5-inch needle with 1% lidocaine solution. At this point, a 25-gauge 3.5-inch spinal needle was atraumatically introduced and advanced under fluoroscopic guidance through the posterior Left L5/S1 neuroforamen to approximately the anterior aspect of the canal. Depth was confirmed on lateral view. Following negative aspiration, injection of approximately 1.5 cc of Isovue 200 under live fluoroscopy in the AP view confirm ed excellent flow along the nerve root, into the epidural space without vascular or intrathecal uptake observed Radiological data, including multiple fluoroscopic views of the lumbosacral spine, reveal a spinal needle at the Left L5/S1 posterior neuroforamen. Subsequent views show flow of contrast material flowing superiorly and inferiorly along the nerve root confirming epidural flow. Subsequently, a test dose of 1.5cc of 0.25%marcaine solution was administered and patient was observed for two minutes for signs or symptoms of complications, including abdominal pain, shortness of breath, bilateral upper or lower extremity weakness, nausea and vomiting, prior to steroid injection. At this point, a total of 3cc or 10mg of dexamethasone and 12mg of betamethasone was injected without incident. The procedure tolerated the procedure well without signs or symptoms of complications prior to transfer to the recovery area continued monitoring without incident. The patient was then transferred to the recovery area where they were observed for an appropriate time after the injection. The patient reported a VAS score of 7 prior to the procedure and a post-procedure VAS of 0. POST OP INSTRUCTIONS The patient was provided a Pain Log to continue to record their response to the target-specific procedure prior to follow-up visit with their referring phy sician. Additionally, specific post-injection care instructions and a contact number to our office were provided if concerns arise regarding possible complications associated with the procedure are suspected.
== END 2024-11-15 14:18 | disposition home or self-care (01) ==
LOC: RAD 13:00
PROVIDERS: Family Provider Family Medicine; PCP Family Medicine; Referring Provider Family Medicine; Visit Provider Physical Medicine & Rehabilitation
DX: M48.07 Spinal stenosis, lumbosacral region (principal); M51.17 Intervertebral disc disorders with radiculopathy, lumbosacral region; M47.27 Other spondylosis with radiculopathy, lumbosacral region
CPT/HCPCS: 64483; 64484; 99152; J0702; J1100; J2250

== ENCOUNTER 2024-12-19 11:30 | Outpatient (RCR) | payer MEDICARE, OTHER, SELFPAY ==
--- NOTE | 2024-11-14 17:53 | PT.OPPOC ---
Physical, Occupational & Speech Therapy At [facility] Current Diagnoses Radiculopathy, lumbar region (11/14/24) Personal history of other diseases of the musculoskeletal system and connective tissue (11/14/24) Visit Care Team Role Provider Type Blanca Laazro DO Family Provider Physician Primary Care Provider Specialty: Medical Address: [address] [place] [address], [address], [place], [address] Email: [email or web address] Leland Lopez DO Attending Provider Physician Referring Provider Specialty: Interventional Radiology Physiatry Pain Management Address: [address], [place], [address] Email: [email or web address] Plan Of Care PT OP: Lower Back/Lower Extremity Start: 11/14/24 13:04 Freq: Status: Active Protocol: Document 11/14/24 13:04 [facility] (Rec: 11/14/24 15:16 [facility] [id number]) Out-Patient Physical Therapy Visit Information Visit Information Visit Type Initial Evaluation Visit Start Time 14:32 Visit Stop Time 15:15 Visit Number 1 Number of LAND SALES AGENT Visits 0 Precautions Precautions osteoporosis Current Condition History of Current Condition Current Complaints LBP and L leg pain (buccoks to post lat leg, around knee ant, lat post tapia History of Current Pt had a lami at L5-S1 B in Jan and that helped RLE. 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 doesn't feel BMs. NOw disc is buldging at L5-S1 on L side and also L4-5 and has a planned injection tomorrow. Today pain is stronger. Sitting makes it worse and feels like is sitting too much, walking also causes issues. Has a small dog now that she tries to get to walk. Had started working out w/ personal banking representative and feels like that may have irritated pain, so stopped for now. in Apr 2023 and notes she hasn't taken care of herself which is why she tried the personal training. She can't find one position that makes it comfortable. Laying down is not comfortable. Can't lay on l side very long and wakes up at night. Seeing a foot doctor next week. BIg toe gets kind of numb. Prior Treatments and MRI: Tests IMPRESSION: Overall moderate degree of spondylotic changes as described above, with some areas higher grade stenosis for example at L5-S1. These findings are not significantly changed from prior imaging. Edematous endplate changes from L4-S1 are slightly increased. No acute fracture Treatment Goals Patient/Caregiver back to longer walks, be able to sit/stand w/o inc pain Goals Patient Questionnaires Oswestry Low Back Index Oswestry Score 38% Balance Tests Single Limb Standing Single Limb- Right 12 sec Single Limb- Left 7 sec OP Gait Assessment Comments Gait Comments dec push off B, dec stance time LLE, opp hip drop w/Wb Posture Evaluation Berny Postural Classification System Berny Postural Posterior/Anterior Classifications Lumbar Protective 0 Mechanism Left AP Lumbar Protective 1 Mechanism Right AP Lumbar Protective 0 Mechanism Left PA Lumbar Protective 0 Mechanism Right PA Comments Posture Comments B pronations, Pelvis sheared R, L shoulder higher, R ant tipped, trunk rotated L, SB R, R iliac crest higher , equal greater trochanters, inc kyphosis Lumbar Spine Range of Motion Lumbar Spine Active Percentage Flexion 40 Extension 30 Rotation Left 50 Rotation Right 50 Lateral Flexion Left 60 Lateral Flexion 80 Right ROM Limitations Soft Tissue Tightness,Pain Comments flex:mid thigh w/pelvis blocked, to malleoli w/o Special Tests Lumbar Spine Special Tests SLR Test Results positive L w/less ROM reflexes Comments 0 achilles B; patellar B 2+ Slump Test Results positive L Hip Strength Hip Manual Muscle Testing Right Extension (S1) 3 Fair Abduction 3+ Fair+ Adduction 3+ Fair+ External Rotation 4 Good Left Extension (S1) 3- Fair- Abduction 3+ Fair+ Adduction 3+ Fair+ External Rotation 3+ Fair+ Internal Rotation 4 Good Knee Strength Knee Manual Muscle Testing Right Flexion (S2) 4+ Good+ Extension (L3) 5 Normal Left Flexion (S2) 4 Good Extension (L3) 5 Normal Ankle/Foot Strength Ankle and Foot Manual Muscle Testing Right Dorsiflexion (L4) 5 Normal Plantarflexion (S1) 5 Normal Comments PF tested seated B Left Dorsiflexion (L4) 5 Normal Plantarflexion (S1) 4+ Good+ Therapeutic Exercises Supine Exercises isometric Supine Exercise Name SL w/DF Side bilateral Reps/Minutes 30 sec core Supine Exercise Name 1. heel slides 2. BKFO Side bilateral Reps/Minutes 10 ea bridge Supine Exercise Name core w/segmental lift Side bilateral Reps/Minutes 10 Physical Therapy Assessment Rehab Potential Rehabilitation Good Potential Evaluation Complexity Number of Personal 3 or More Factors/ Comorbidities Number of Body 4 or More Systems Impaired Clinical Evolving Presentation at Evaluation Impairments Impairments Activity Tolerance,Balance,Functional Activities, Functional Mobility,Gait,Pain,Posture,ROM,Soft Tissue Mobility,Strength,Transfers Goals RONEL Impairment 38% Long-Term Goal (LTG) Pt will improve RONEL score to no greater than 10% to show improved functional ability. LTG Duration 02/12 activities Metalworker Goal (LTG) Pt will report being able to sit and stand for at least 1 hour as needed w/o inc pain LTG Duration 02/12 strength Short Term Goal (STG Pt will be indep w/HEP and demonstrate by ability to ) demo at least 4/5 HEP exercises w/o cues STG Duration 11/14 Metalworker Goal (LTG) Pt will score at least 4+/5 BLE MMT and at least 3/5 LPM in all planes to allow pt greater ease w/typical ADLs LTG Duration 02/12 Assessment Summary Assessment pt presents w/LBP worsening w/LLE radicular symptoms w/ hx of lami in 01/2024. Notable weakness of L>R LEs and dec core control. She does have noted disc bulging in imaging noted at L4-5 and L5-S1 and is set up for injection coming up. 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 She has pain constantly and it is limiting her ability to be active as she likes. She would benefit from skilled PT to improve posture, strength, gait, balance and dec pain to return to typical function. Physical Therapy Plan Frequency and Duration Frequency of 2x/Week Treatment Duration of 12 treatment (weeks) Plan of Care Start 11/14/24 Date Plan of Care End 02/12/25 Date Therapeutic Interventions Therapeutic Balance Training,Gait Training,Home Exercise Program, Interventions Joint Mobilizations,Manual Therapy,Neuromuscular Re- education,Patient/Caregiver Education,Self-Care/Home Management,Soft Tissue Mobilization,Taping,Therapeutic Activities,Therapeutic Exercises Modalities Cold Pack/Ice Massage,Electric Stimulation,Hot Packs, Infrared Therapy,Ultrasound Next Visit Focus/Plan Next Note Type Treatment Note Next Visit Plan review exercises, advance hip strength, innominate and hip mobility, STM to back and hips, lumbar gentle mobs, postural strength Plan of Care Dates Plan of Care Start Date 11/14/24 Plan of Care End Date 02/12/25 Electronically Signed by: Mary Kay, PT 11/16/24 [id number] If you are in agreement with this Plan of Care, please return a signed and dated copy. I have reviewed this Plan of Care and certify that the skilled therapy services above are required to meet the patient?s needs. Physician Signature Date Printed Name and Credentials Clinical Instructor Signature Printed Name and Credentials
--- NOTE | 2024-11-21 16:26 | PT.OTN ---
Current Diagnoses Radiculopathy, lumbar region (11/21/24) Personal history of other diseases of the musculoskeletal system and connective tissue (11/21/24) Physical Therapy Treatment Note PT OP: Lower Back/Lower Extremity Start: 11/14/24 13:04 Freq: Status: Active Protocol: Document 11/21/24 15:16 [facility] (Rec: 11/21/24 16:25 [facility] [id number]) Out-Patient Physical Therapy Visit Information Visit Information Visit Type Treatment Note Visit Start Time 15:20 Visit Stop Time 16:00 Visit Number 2 Number of RN MEDICAL INPATIENT SERVICES Visits 0 Progress Note Due 12/14/24 OP-PT Subjective Patient Comments Patient Comments Pt notes she has a compression fx at T8 and 12 and thinks bridge irritated it. Got her injection the day after eval and it has helped but she tried to walk yesterday and got pain down leg. Gets OP infusion and is back to osteopenia Therapeutic Exercises Supine Exercises stretch Supine Exercise Name cross body piriformis Side bilateral Equipment Used towel roll at groin Reps/Minutes 30 sec x2 B isometric Supine Exercise Name SL w/DF Side bilateral Reps/Minutes 30 sec Comments cues DF core Supine Exercise Name 1. heel slides 2. BKFO Side bilateral Reps/Minutes 15 ea Comments significant cues for no arch ; use of pt and PT hands Sidelying Exercises clamshell Side bilateral Equipment Used lvl 1 Reps/Minutes 15 Standing Exercises hip hike Side bilateral Equipment Used step w/rail Reps/Minutes 15 sidestep Side bilateral Equipment Used L1 at ankles Reps/Minutes 20ft ea Comments cues core, no lat lean or scuff of feet Manual Therapy Treatment Consent Patient gave verbal Yes consent for manual treatment Soft Tissue Mobilization glute Body Location L piriformis Mobilization Type Rolling,Sustained Pressure Intensity/Depth Moderate Body Position Sidelying back Body Location cupping and manual ES and scar Mobilization Type Instrument Assisted,Rolling Intensity/Depth Moderate Body Position Sidelying Joint Mobilizations hip Comments B free the ball ER c/r , L free the ball IR c/r Physical Therapy Assessment Goals RONEL Impairment 38% Assisted Goal (LTG) Pt will improve RONEL score to no greater than 10% to show improved functional ability. LTG Duration 11/2 activities Assisted Goal (LTG) Pt will report being able to sit and stand for at least 1 hour as needed w/o inc pain LTG Duration 11/2 strength Short Term Goal (STG Pt will be indep w/HEP and demonstrate by ability to ) demo at least 4/5 HEP exercises w/o cues STG Duration 11/14 Assisted Goal (LTG) Pt will score at least 4+/5 BLE MMT and at least 3/5 LPM in all planes to allow pt greater ease w/typical ADLs LTG Duration 02/12 Assessment Summary Assessment Pt required cues with core exercises for neutral spine position. Challenged by hip strengthening and core exercises. Pt notes feeling better after session today. Physical Therapy Plan Frequency and Duration Frequency of 2x/Week Treatment Duration of 12 treatment (weeks) Plan of Care Start 11/14/24 Date Plan of Care End 02/12/25 Date Next Visit Focus/Plan Next Note Type Treatment Note Next Visit Plan review exercises and advance as able, advance hip strength, innominate and hip mobility, STM to back and hips, lumbar gentle mobs, postural strength
--- NOTE | 2024-11-24 16:04 | PT.OTN ---
Current Diagnoses Radiculopathy, lumbar region (11/24/24) Personal history of other diseases of the musculoskeletal system and connective tissue (11/24/24) Physical Therapy Treatment Note PT OP: Lower Back/Lower Extremity Start: 11/14/24 13:04 Freq: Status: Active Protocol: Document 11/24/24 15:21 [facility] (Rec: 11/24/24 16:04 [facility] [id number]) Out-Patient Physical Therapy Visit Information Visit Information Visit Type Treatment Note Visit Start Time 15:21 Visit Stop Time 16:00 Visit Number 3 Number of RECORD CENTER COORDINATOR Visits 0 Progress Note Due 12/14/24 OP-PT Subjective Patient Comments Patient Comments Pt reports some soreness but no inc in pain. HEp going ok at home Therapeutic Exercises Supine Exercises stretch Supine Exercise Name cross body piriformis Side bilateral Equipment Used towel roll at groin Reps/Minutes 30 sec x2 B isometric Supine Exercise Name DL w/DF Side bilateral Reps/Minutes 30 sec Comments no inc pain w/advancement core Supine Exercise Name 1. heel slides 2. BKFO Side bilateral Equipment Used 2. Lvl 1 band Reps/Minutes 15 ea Comments min cues needed during Sidelying Exercises clamshell Side bilateral Equipment Used lvl 1 Reps/Minutes 15 Standing Exercises hip hike Side bilateral Equipment Used step w/rail Reps/Minutes 15 Comments cues no back arch sidestep Side bilateral Equipment Used L1 at ankles Reps/Minutes 15ft ea Comments cues control band Manual Therapy Treatment Consent Patient gave verbal Yes consent for manual treatment Soft Tissue Mobilization glute Body Location L lat glute Mobilization Type Rolling,Sustained Pressure Intensity/Depth Moderate Comments into piriformis stretch back Body Location cupping and manual ES and scar Mobilization Type Instrument Assisted,Rolling Intensity/Depth Moderate Body Position Sidelying Physical Therapy Assessment Goals RONEL Impairment 38% Snf Goal (LTG) Pt will improve RONEL score to no greater than 10% to show improved functional ability. LTG Duration 11/2 activities Cheesemaking Laborer Goal (LTG) Pt will report being able to sit and stand for at least 1 hour as needed w/o inc pain LTG Duration 11/2 strength Short Term Goal (STG Pt will be indep w/HEP and demonstrate by ability to ) demo at least 4/5 HEP exercises w/o cues STG Duration 8/4 Snf Goal (LTG) Pt will score at least 4+/5 BLE MMT and at least 3/5 LPM in all planes to allow pt greater ease w/typical ADLs LTG Duration 02/12 Assessment Summary Assessment Pt did much better with exercises and required less cues today. Able to advance SL isometric to DL today. Physical Therapy Plan Frequency and Duration Frequency of 2x/Week Treatment Duration of 12 treatment (weeks) Plan of Care Start 11/14/24 Date Plan of Care End 02/12/25 Date Next Visit Focus/Plan Next Note Type Treatment Note Next Visit Plan advance as able, advance hip strength, innominate and hip mobility, STM to back and hips, lumbar gentle mobs, postural strength
--- NOTE | 2024-11-30 10:33 | PT.OTN ---
Current Diagnoses Radiculopathy, lumbar region (11/30/24) Personal history of other diseases of the musculoskeletal system and connective tissue (11/30/24) Physical Therapy Treatment Note PT OP: Lower Back/Lower Extremity Start: 11/14/24 13:04 Freq: Status: Active Protocol: Document 11/30/24 09:48 SP (Rec: 11/30/24 09:51 SP [id number]) Out-Patient Physical Therapy Visit Information Visit Information Visit Type Treatment Note Visit Start Time 09:48 Visit Stop Time 10:33 Visit Number 4 Number of MOLDING FITTER Visits 1 Progress Note Due 12/14/24 Precautions Precautions osteoporosis OP-PT Subjective Patient Comments Patient Comments Pt reports compliant with HEP and pleased going gentle progression for allowance feel better. She stated had spinal injections 2-3 weeks ago and is helping to allow her move with less pain to compliment PT. Therapeutic Exercises Supine Exercises stretch Supine Exercise Name cross body piriformis Side bilateral Reps/Minutes 60 sec each LE Comments towel not needed today at groin on L isometric Supine Exercise Name DL w/DF Side bilateral Reps/Minutes 30 sec Comments no inc pain w/advancement double leg (has been doing SL home pre today) core Supine Exercise Name 1. heel slides not today 11/30/24 2. BKFO Side bilateral Equipment Used 2. Lvl 1>2 teal band Reps/Minutes 10 reps each side alternating Comments min cues needed during Sidelying Exercises clamshell Side bilateral Equipment Used lvl 1>2 teal band Reps/Minutes 15 Comments good form and slow pacing Standing Exercises TA Walk outs Standing Exercise added to HEP with HO Name Side bilateral Resistance Tb #2 teal anchored door waist height Reps/Minutes 3-5 reps each side Comments cued athletic stance, tailbone tuck with TA, tall posture Paloff Press Standing Exercise added to HEP with HO Name Side bilateral Resistance Tb #2 teal anchored door waist height Reps/Minutes 10 reps Comments cued athletic stance, PHYSICAL SCIENTIST with TA. Manual Therapy Treatment Consent Patient gave verbal Yes consent for manual treatment Soft Tissue Mobilization glute Body Location L>R lat glute Mobilization Type Rolling,Sustained Pressure Intensity/Depth Moderate Body Position Prone Comments STMs and MWM PROM hip IR/ER back Body Location cupping and manual ES and scar Mobilization Type Instrument Assisted,Rolling Intensity/Depth Moderate Body Position Sidelying Physical Therapy Assessment Goals RONEL Impairment 38% Half-Way Goal (LTG) Pt will improve RONEL score to no greater than 10% to show improved functional ability. LTG Duration 02/12 activities Oil Developer Goal (LTG) Pt will report being able to sit and stand for at least 1 hour as needed w/o inc pain LTG Duration 02/12 strength Short Term Goal (STG Pt will be indep w/HEP and demonstrate by ability to ) demo at least 4/5 HEP exercises w/o cues STG Duration 11/14 Half-Way Goal (LTG) Pt will score at least 4+/5 BLE MMT and at least 3/5 LPM in all planes to allow pt greater ease w/typical ADLs LTG Duration 02/12 Assessment Summary Assessment Pt improved abdominal engagement and spinal alignment with ther ex today improved decrease back tension and tolerated increased resistance with hip exercises. Improved Myofascial mobility to scar with cupping today . Physical Therapy Plan Frequency and Duration Frequency of 2x/Week Treatment Duration of 12 treatment (weeks) Plan of Care Start 11/14/24 Date Plan of Care End 02/12/25 Date Therapeutic Interventions Therapeutic Balance Training,Gait Training,Home Exercise Program, Interventions Joint Mobilizations,Manual Therapy,Neuromuscular Re- education,Patient/Caregiver Education,Self-Care/Home Management,Soft Tissue Mobilization,Taping,Therapeutic Activities,Therapeutic Exercises Modalities Cold Pack/Ice Massage,Electric Stimulation,Hot Packs, Infrared Therapy,Ultrasound Next Visit Focus/Plan Next Note Type Treatment Note Next Visit Plan recheck HEP, added paloff press and TA walk outs. PCO: advance as able, advance hip strength, innominate and hip mobility, STM to back and hips, lumbar gentle mobs, postural strength
--- NOTE | 2024-12-02 10:32 | PT.OTN ---
Current Diagnoses Radiculopathy, lumbar region (12/02/24) Personal history of other diseases of the musculoskeletal system and connective tissue (12/02/24) Physical Therapy Treatment Note PT OP: Lower Back/Lower Extremity Start: 11/14/24 13:04 Freq: Status: Active Protocol: Document 12/02/24 09:52 SP (Rec: 12/02/24 10:01 SP [id number]) Out-Patient Physical Therapy Visit Information Visit Information Visit Type Treatment Note Visit Start Time 09:52 Visit Stop Time 10:32 Visit Number 2 Number of SUPERVISOR MATRIX Visits 1 Progress Note Due 12/14/24 Precautions Precautions osteoporosis OP-PT Subjective Patient Comments Patient Comments Pt reported fell yesterday: sitting on stool at daughter's house and saw her puppy get ready to squat urinate on carpet, hopped down quickly and L foot caught on rung and she fell onto her L hip shoulder and felt discomfort in R pelvis too but not sure why didn' t land on it. SHe didn't think that bad, drove home and really sore when woke up,not sure if s hould go to walk in clinic. She took Advil for discomfort support, used CP last night. SHe reports no brusing. Therapeutic Exercises Supine Exercises core Supine Exercise Name LTR small core range (pelvis ontable), hip flexion, pelvic tilt-(phone pic) Side bilateral Resistance Core series fluid AROM Equipment Used BLEs over 55cm tball hooklying Reps/Minutes 5-10 reps Comments cued very slow, small no pain range, breath for core fac & AROM Sitting Exercises TA sit to stand Sitting Exercise end tx AROM post manual hooklying ther ex Name Resistance not need UE support Equipment Used 20 table Reps/Minutes 8 reps Comments cues TA fac, low asc/desc- no pain, feel soreness L hip . clamshell Sitting Exercise trialed in PT Name Side bilateral Resistance Tb #2 teal around thighs Reps/Minutes 10 reps Comments good form, no pain Manual Therapy Treatment Consent Patient gave verbal Yes consent for manual treatment Soft Tissue Mobilization RIbcage Body Location L>R R 8-10 Mobilization Type Myofascial Release,Rolling Intensity/Depth Superficial Body Position Prone over pillows Comments gentle STMs, ed use breath slow in/exhale glute Body Location L>R lat glute & piriformis Mobilization Type Rolling,Sustained Pressure,Other Intensity/Depth Moderate Body Position Prone over pillows Comments STMs L>R sensitive to gentle pressure, adjusted for comfortand MWM PROM hip IR/ER back Body Location ES & paraspinal of LS & TS; QL Mobilization Type Myofascial Release,Rolling Intensity/Depth Moderate Body Position Prone over pillows Comments gentle STMs: R>L sensitive to gentle pressure, adjusted for comfort Self-Care/Home Management Treatment Education Patient Education Body Mechanics,Home Exercise Program,Joint Protection, Pain Management,Posture,Safety Other Education Education discussion use modaliities and send message to Dr Lazaro for awareness and how feeling if she feels need to be seen but pt reports that doing well with no pain activities just soreness over R hip and shoulder, ribcage doesn't feel broke anything but aware with Osteoporosis be cautious and prevention image can be benefiical. Pt stated will contact Dr Lazaro on patient portal for awareness. ARm swing walking with purse cross body. Continue modalities for discomfort. Physical Therapy Assessment Goals RONEL Impairment 38% Custodial Goal (LTG) Pt will improve RONEL score to no greater than 10% to show improved functional ability. LTG Duration 11/2 activities Custodial Goal (LTG) Pt will report being able to sit and stand for at least 1 hour as needed w/o inc pain LTG Duration 11/2 strength Short Term Goal (STG Pt will be indep w/HEP and demonstrate by ability to ) demo at least 4/5 HEP exercises w/o cues STG Duration 8/4 Custodial Goal (LTG) Pt will score at least 4+/5 BLE MMT and at least 3/5 LPM in all planes to allow pt greater ease w/typical ADLs LTG Duration 11/2 Assessment Summary Assessment Pt sustained a fall on L side see subjective, soreness but not pain moving. Good feedback response to gentle manual STMs and PROM, then instructed slow small range AROM BLEs over tball with cues for slow small range aROM hips and core facilitation back to improved mobility with less discomfort, good feedback response. Pt declined hand outs but took pic with her phone start and end small range movement. Education discussion use modaliities and send message to Dr Lazaro for awareness and how feeling if she feels need to be seen but pt reports that doing well with no pain activities just soreness over R hip and shoulder, ribcage doesn't feel broke anything but aware with Osteoporosis be cautious and prevention image can be benefiical. Pt stated will contact Dr Lazaro on patient portal for awareness. Physical Therapy Plan Frequency and Duration Frequency of 2x/Week Treatment Duration of 12 treatment (weeks) Plan of Care Start 11/14/24 Date Plan of Care End 02/12/25 Date Therapeutic Interventions Therapeutic Balance Training,Gait Training,Home Exercise Program, Interventions Joint Mobilizations,Manual Therapy,Neuromuscular Re- education,Patient/Caregiver Education,Self-Care/Home Management,Soft Tissue Mobilization,Taping,Therapeutic Activities,Therapeutic Exercises Modalities Cold Pack/Ice Massage,Electric Stimulation,Hot Packs, Infrared Therapy,Ultrasound Next Visit Focus/Plan Next Note Type Treatment Note Next Visit Plan recheck how feeel after fall 12/01/24, core AROM LEs over tball HEP dinh no pain. Recheck if dinh: added paloff press and TA walk outs. PCO: advance as able, advance hip strength, innominate and hip mobility, STM to back and hips, lumbar gentle mobs, postural strength
--- NOTE | 2024-12-08 13:44 | PT.OTN ---
Current Diagnoses Radiculopathy, lumbar region (12/08/24) Personal history of other diseases of the musculoskeletal system and connective tissue (12/08/24) Physical Therapy Treatment Note PT OP: Lower Back/Lower Extremity Start: 11/14/24 13:04 Freq: Status: Active Protocol: Document 12/08/24 13:00 SP (Rec: 12/08/24 13:48 SP [id number]) Out-Patient Physical Therapy Visit Information Visit Information Visit Type Treatment Note Visit Start Time 13:01 Visit Stop Time 13:44 Visit Number 3 Number of QUEBRACHO TANNER Visits 2 Progress Note Due 12/14/24 Precautions Precautions osteoporosis OP-PT Subjective Patient Comments Patient Comments Pt reports having pain anterior L hip flexor into groin and still feeling bruised Lateral L hip more today than when fell 12/01/24 off barstool. Therapeutic Exercises Supine Exercises stretch Supine Exercise Name Modified Mohsen Stretch 12/08/24: Side bilateral Reps/Minutes 60 sec each LE isometric Supine Exercise Name DL w/DF Side bilateral Reps/Minutes 30 sec Comments no inc pain w/advancement double leg (has been doing SL home pre today) bridge Supine Exercise Name updated 12/08/24: bridge june- no HO Side bilateral Reps/Minutes 10 reps alternating Comments cued TA and glut- good tiring and no back pain Standing Exercises TA Walk outs Standing Exercise added to HEP with HO Name Side bilateral Resistance Tb #2 teal anchored door waist height Reps/Minutes 3-5 reps each side Comments cued athletic stance, tailbone tuck with TA, tall posture Paloff Press Standing Exercise added to HEP with HO Name Side bilateral Resistance Tb #2 teal anchored door waist height Reps/Minutes 10 reps Comments cued athletic stance, PLANNED GIVING OFFICER with TA. Manual Therapy Treatment Consent Patient gave verbal Yes consent for manual treatment Joint Mobilizations hip Joint lateral- didn't help, anteromedial and posterolateral mob with strap Comments manual then ed self- good feedback improved L hip mobility Manual Techniques MET Type L posterior tilted and outflare, R anterior tilt neutral Reps/Duration 5 SH x5 each Comments Tx: 1.manual L hip ext isometric 2. R hip hip flex isometric 3. shot gun- isometric adduction against ball then isometric hip abd clamshell 5 sec hold each alternating 4. then Instruction each 1-2 use dowel between LEs 90/ 90 Self-Care/Home Management Treatment Education Patient Education Body Mechanics,Home Exercise Program,Joint Protection, Pain Management,Posture,Safety Other Education self mob hip/SI use dowel, ball and strap, see manual instruction details, ed after manual glut and quad fac walking support in/out midstance with TA level pelvis Physical Therapy Assessment Goals RONEL Impairment 38% Correction Goal (LTG) Pt will improve RONEL score to no greater than 10% to show improved functional ability. LTG Duration 02/12 activities Wildlife Science Professor Goal (LTG) Pt will report being able to sit and stand for at least 1 hour as needed w/o inc pain LTG Duration 02/12 strength Short Term Goal (STG Pt will be indep w/HEP and demonstrate by ability to ) demo at least 4/5 HEP exercises w/o cues STG Duration 11/14 Wildlife Science Professor Goal (LTG) Pt will score at least 4+/5 BLE MMT and at least 3/5 LPM in all planes to allow pt greater ease w/typical ADLs LTG Duration 02/12 Assessment Summary Assessment Pt improved response decreased pain end of tx post manual and ed self application MET use dowel for pelvic realignment corrections. Educational cues for addition modified Mohsen stretch for quad and hipflexor mobility and continue gentle core HEP proper form to give spinal stabillity. Physical Therapy Plan Frequency and Duration Frequency of 2x/Week Treatment Duration of 12 treatment (weeks) Plan of Care Start 11/14/24 Date Plan of Care End 02/12/25 Date Therapeutic Interventions Therapeutic Balance Training,Gait Training,Home Exercise Program, Interventions Joint Mobilizations,Manual Therapy,Neuromuscular Re- education,Patient/Caregiver Education,Self-Care/Home Management,Soft Tissue Mobilization,Taping,Therapeutic Activities,Therapeutic Exercises Modalities Cold Pack/Ice Massage,Electric Stimulation,Hot Packs, Infrared Therapy,Ultrasound Next Visit Focus/Plan Next Note Type Treatment Note Next Visit Plan core AROM LEs over tball HEP dinh no pain. Recheck if dinh: added paloff press and TA walk outs. PCO: advance as able, advance hip strength, innominate and hip mobility, STM to back and hips, lumbar gentle mobs, postural strength
--- NOTE | 2024-12-16 12:18 | PT.OTN ---
Current Diagnoses Radiculopathy, lumbar region (12/16/24) Personal history of other diseases of the musculoskeletal system and connective tissue (12/16/24) Physical Therapy Treatment Note PT OP: Lower Back/Lower Extremity Start: 11/14/24 13:04 Freq: Status: Active Protocol: Document 12/16/24 11:38 SP (Rec: 12/16/24 12:40 SP [id number]) Out-Patient Physical Therapy Visit Information Visit Information Visit Type Treatment Note Visit Start Time 11:38 Visit Stop Time 12:18 Visit Number 4 Number of LONG FILLER CIGAR ROLLER MACHINE Visits 3 Progress Note Due 12/14/24 Precautions Precautions osteoporosis OP-PT Subjective Patient Comments Patient Comments Pt reports still having pain since her fall 2 weeks ago , L groin now radiating laterally to posterolateral hip , glut and SI area. Her tension originally started L hip flexor/groin, now worse at adductor longus to pubic bone and above/suprapubic area is sore, maybe affected now too? Is in back SI too. She is saw Dr Lopez's asscociate and ordered an MRI of LS, appt Diana but hoping sooner. Patient Questionnaires Oswestry Low Back Index Oswestry Score 25 Oswestry Impairment 20 to 39% Impaired (Score 20-39) Therapeutic Exercises Supine Exercises stretch Supine Exercise Name Modified Mohsen Stretch Side left Reps/Minutes 60 sec each LE Comments leg draped off table, cued breath core Supine Exercise Name LTR small core range (pelvis ontable), hip flexion, pelvic tilt-(phone pic) Side bilateral Resistance Core series fluid AROM Equipment Used BLEs over 55cm tball hooklying Reps/Minutes 10 reps each (no bridge lift due to L LBP) Comments cued very slow, small no pain range, breath for core fac & AROM Other Exercises Self STMs Other Exercise Name Bilateral: sustained gluteal gentle pressure over squishy miracle balls Equipment Used 2 purple miracle balls Reps/Minutes 2 min suspend hold/relax, then hip IR/ER 5 reps each small range Comments cued dbreath and allow LB and pelvis sink toward floor, then hip IR/ER Gait Training Gait Activity glut engagment Description post manual Comments cued PPT NS and TA engagment for L hip stability during midstance time- less supported post manual but reports hip/groin feels better. Manual Therapy Treatment Consent Patient gave verbal Yes consent for manual treatment Joint Mobilizations hip Joint L hip: 1. hip distracion mob with strap Direction posterolateral mob with strap Comments good feedback improved L hip mobility- good Manual Traction LS Body Position Hooklying Reps/Duration 10 sec hold x5 reps Comments LEs over 55cm tball, gentle bilateral caudal pressure to BLEs at ankles- good feedback gentle distraction in hips and LB. Manual Techniques PNF Type L hip Comments 5 reps each direction- improved mobiltiy post self STMs over miracle ball and mob. Self-Care/Home Management Treatment Education Patient Education Body Mechanics,Home Exercise Program,Joint Protection, Pain Management,Posture,Safety Other Education Much education self STMs over miracle balls, see HO sustained press vs MWM hpi IR/ER and core/ hip HEP help and feel comfortable continue support stability and pain reduction, MHP vs CP or contrast can help. Physical Therapy Assessment Goals RONEL Impairment 38% Correction Goal (LTG) Pt will improve RONEL score to no greater than 10% to show improved functional ability. 12/16/24: she reports feeling worse since her fall off bar stool to stop dog peeing on carpet, PT Mary is aware. RONEL: Score 25. LTG Duration 02/12 updated 12/16/24 activities Correction Goal (LTG) Pt will report being able to sit and stand for at least 1 hour as needed w/o inc pain 12/16/24: Since her fall, since can only sit 60 min but when gets up I know it and 30 min 1 hour before need to change positioning LTG Duration 02/12 updated 12/16/24 strength Short Term Goal (STG Pt will be indep w/HEP and demonstrate by ability to ) demo at least 4/5 HEP exercises w/o cues 12/16/24: challenged moving her leg on/off table without pain in L groin and hip 10/20. STG Duration 11/14 updated 12/16/24 Correction Goal (LTG) Pt will score at least 4+/5 BLE MMT and at least 3/5 LPM in all planes to allow pt greater ease w/typical ADLs LTG Duration 02/12 Assessment Summary Assessment Pt is having slow progress with decreased L hip pain and ability to do regular activities since her fall off bar stool about 2 weeks ago. PT Mary aware when spoke to pt during last tx. Still over recruitment prox L hip flexor and adductor affecting her L LB/glut region. Pt awaiting MRI of LS Tues or sooner for awareness. Pt responded well to manual LS traction and L hip mobs. She reports feels better in L hip but feels weak now to stand on. Improved with cues for TA with PPT during stance time and ab bracing during gait level pelvis. Ed continue core and HEP feels comforting at home for stability. Physical Therapy Plan Frequency and Duration Frequency of 2x/Week Treatment Duration of 12 treatment (weeks) Plan of Care Start 11/14/24 Date Plan of Care End 02/12/25 Date Therapeutic Interventions Therapeutic Balance Training,Gait Training,Home Exercise Program, Interventions Joint Mobilizations,Manual Therapy,Neuromuscular Re- education,Patient/Caregiver Education,Self-Care/Home Management,Soft Tissue Mobilization,Taping,Therapeutic Activities,Therapeutic Exercises Modalities Cold Pack/Ice Massage,Electric Stimulation,Hot Packs, Infrared Therapy,Ultrasound Next Visit Focus/Plan Next Note Type Treatment Note Next Visit Plan PT to complete PN today. Sees primary PT next visit. POC: check response to manual. self STMs miracle ball, mobes/traction. Results of MRI Tues or sooner. Recheck if can dinh progre ssion: added paloff press and TA walk outs. PCO: advance as able, advance hip strength, innominate and hip mobility, STM to back and hips, lumbar gentle mobs, postural strength
--- NOTE | 2024-12-16 18:14 | PT.OPPN ---
Current Diagnoses Radiculopathy, lumbar region (12/16/24) Personal history of other diseases of the musculoskeletal system and connective tissue (12/16/24) Physical Therapy Progress Note PT OP: Lower Back/Lower Extremity Start: 11/14/24 13:04 Freq: Status: Active Protocol: Document 12/16/24 18:06 ACTING SECTION CHIEF (Rec: 12/16/24 18:14 ACTING SECTION CHIEF Laptop) Out-Patient Physical Therapy Visit Information Visit Information Visit Type Progress Note Physical Therapy Assessment Goals RONEL Impairment 38% Assisted Goal (LTG) Pt will improve RONEL score to no greater than 10% to show improved functional ability. 12/16/24: she reports feeling worse since her fall off bar stool to stop dog peeing on carpet, PT Mary is aware. RONEL: Score 25. LTG Duration 02/12 updated 12/16/24 activities Assisted Goal (LTG) Pt will report being able to sit and stand for at least 1 hour as needed w/o inc pain 12/16/24: Since her fall, since can only sit 60 min but when gets up I know it and 30 min 1 hour before need to change positioning LTG Duration 02/12 updated 12/16/24 strength Short Term Goal (STG Pt will be indep w/HEP and demonstrate by ability to ) demo at least 4/5 HEP exercises w/o cues 12/16/24: challenged moving her leg on/off table without pain in L groin and hip 10/20. STG Duration 8/ updated 12/16/24 Legal Contracts Specialist Goal (LTG) Pt will score at least 4+/5 BLE MMT and at least 3/5 LPM in all planes to allow pt greater ease w/typical ADLs LTG Duration 02/12 Assessment Summary Assessment Pt demonstrates slow progress towards goals with increased pain since falling off stool 2 weeks ago, but is demonstrating progress in RONEL from 38% on eval to 25% today, is progressing towards sitting and standing tolerance goal currently tolerating 30-60 mins, and is limited in HEP compliance d/t increased pain. Evaluating PT is aware of set back after fall. Continue skilled PT intervention to decrease pain for improved activity tolerance. Physical Therapy Plan Frequency and Duration Frequency of 2x/Week Treatment Duration of 12 treatment (weeks) Plan of Care Start 11/14/24 Date Plan of Care End 02/12/25 Date
--- NOTE | 2024-12-19 12:30 | PT.OTN ---
Current Diagnoses Radiculopathy, lumbar region (12/19/24) Personal history of other diseases of the musculoskeletal system and connective tissue (12/19/24) Physical Therapy Treatment Note PT OP: Lower Back/Lower Extremity Start: 11/14/24 13:04 Freq: Status: Active Protocol: Document 12/19/24 11:36 [facility] (Rec: 12/19/24 12:30 [facility] [id number]) Out-Patient Physical Therapy Visit Information Visit Information Visit Type Treatment Note Visit Start Time 11:37 Visit Stop Time 12:10 Visit Number 5 Number of CANDY CUTTER MACHINE Visits 0 Progress Note Due 01/14/25 Precautions Precautions osteoporosis OP-PT Subjective Patient Comments Patient Comments Pt reports pain worse now and has MRI scheduled tomorrow for oback. Doctor talked about MRI of hip but doesn't see it in her chart Therapeutic Exercises Supine Exercises pelvic tilt Side bilateral Reps/Minutes 10 Comments cues slow and painfree range LTR Side bilateral Reps/Minutes 2 Comments stopped d/t pain w/small range n glide Supine Exercise Name small rom L Side bilateral Reps/Minutes 10 Comments gentle comfortable range stretch Supine Exercise Name piriformis Side bilateral Equipment Used towel roll groin Reps/Minutes 45 sec ea Comments inc time for towel set up at groin core Supine Exercise Name BKFO Side bilateral Reps/Minutes 10 Comments cues comfortable range and core Self-Care/Home Management Treatment Education Other Education 15 min: edu to avoid all other exercises at this tiem and only do exercises given today w/o inc pain. If they inc pain to stop them. COnt using ice and heat for pain. Edu on importance of following up doctor for pelvis MRI re: if got it authorized. edu plan to hold further PT until imaging results from MRIs. Physical Therapy Assessment Goals RONEL Impairment 38% Asian Studies Professor Goal (LTG) Pt will improve RONEL score to no greater than 10% to show improved functional ability. 12/16/24: she reports feeling worse since her fall off bar stool to stop dog peeing on carpet, PT Mary is aware. RONEL: Score 25. LTG Duration 02/12 updated 12/16/24 activities Half-Way Goal (LTG) Pt will report being able to sit and stand for at least 1 hour as needed w/o inc pain 12/16/24: Since her fall, since can only sit 60 min but when gets up I know it and 30 min 1 hour before need to change positioning LTG Duration 02/12 updated 12/16/24 strength Short Term Goal (STG Pt will be indep w/HEP and demonstrate by ability to ) demo at least 4/5 HEP exercises w/o cues 12/16/24: challenged moving her leg on/off table without pain in L groin and hip 10/20. STG Duration 11/14 updated 12/16/24 Asian Studies Professor Goal (LTG) Pt will score at least 4+/5 BLE MMT and at least 3/5 LPM in all planes to allow pt greater ease w/typical ADLs LTG Duration 02/12 Assessment Summary Assessment d/t pt recent inc in pain less performed today and encouraged pt to follow up with providers office re: pelvis MRI also. Pt had no pain w/exercises given today and encouraged to stay painfree with these. Physical Therapy Plan Frequency and Duration Frequency of 2x/Week Treatment Duration of 12 treatment (weeks) Plan of Care Start 11/14/24 Date Plan of Care End 02/12/25 Date Next Visit Focus/Plan Next Note Type Treatment Note Next Visit Plan gentle ROM until MRI results back, hold from extensive manual to back or hip until results and doctor orders
--- NOTE | 2025-01-23 08:19 | PT.OPDS ---
Current Diagnoses Radiculopathy, lumbar region (12/19/24) Personal history of other diseases of the musculoskeletal system and connective tissue (12/19/24) Visit Care Team Role Provider Type Blanca Lazaro DO Family Provider Physician Primary Care Provider Specialty: Medical Address: [address], [place], [address] Email: [email or web address] Leland Lopez DO Attending Provider Physician Referring Provider Specialty: Interventional Radiology Physiatry Pain Management Address: [address], [place], [address] Email: [email or web address] Visit Number Visit Number 5 Discharge Summary PT OP: Lower Back/Lower Extremity Start: 11/14/24 13:04 Freq: Status: Active Protocol: Document 01/23/25 08:17 [facility] (Rec: 01/23/25 08:18 [facility] [id number]) Out-Patient Physical Therapy Visit Information Visit Information Visit Type Discharge Summary Physical Therapy Assessment Goals RONEL Impairment 38% Snow Remover Goal (LTG) Pt will improve RONEL score to no greater than 10% to show improved functional ability. 12/16/24: she reports feeling worse since her fall off bar stool to stop dog peeing on carpet, PT Mary is aware. RONEL: Score 25. LTG Duration 02/12 updated 12/16/24 activities Snow Remover Goal (LTG) Pt will report being able to sit and stand for at least 1 hour as needed w/o inc pain 12/16/24: Since her fall, since can only sit 60 min but when gets up I know it and 30 min 1 hour before need to change positioning LTG Duration 02/12 updated 12/16/24 strength Short Term Goal (STG Pt will be indep w/HEP and demonstrate by ability to ) demo at least 4/5 HEP exercises w/o cues 12/16/24: challenged moving her leg on/off table without pain in L groin and hip 10/20. STG Duration 8/ updated 12/16/24 Half-Way Goal (LTG) Pt will score at least 4+/5 BLE MMT and at least 3/5 LPM in all planes to allow pt greater ease w/typical ADLs LTG Duration 02/12 Assessment Summary Assessment Pt cancelled last 2 visits and did not reschedule after called to reschedule. DC d/t no longer attending PT. May be d/t PT encouraged pt to follow up w/doctor prior to continueing Physical Therapy Plan Discharge Physical Therapy Discharge Reasons No Longer Attending PT
== END 2025-01-25 09:43 | disposition home or self-care (01) ==
LOC: PHYS 11:30
PROVIDERS: Family Provider Family Medicine; PCP Family Medicine; Referring Provider Physical Medicine & Rehabilitation; Visit Provider Physical Medicine & Rehabilitation
DX: Z87.39 Personal history of other diseases of the musculoskeletal system and connective tissue (principal); M54.16 Radiculopathy, lumbar region
CPT/HCPCS: 97110; 97140; 97162; 97535

== ENCOUNTER → 2024-12-20 19:17 | Outpatient (CLI) | payer MEDICARE, OTHER, SELFPAY ==
--- NOTE | 2024-12-20 19:19 | DI.MRI.S_ITS ---
PROCEDURE: MR LUMBAR SPINE WO CON INDICATIONS: recent fall and worsening pain - left hip TECHNIQUE: Noncontrast sagittal T1 spin echo and T2 fast echo, sagittal STIR, and T2 fast spin echo through the lumbar spine. In cases with scoliosis, additional coronal T2 fast spin echo may be performed. COMPARISON: [facility], MR, MR LUMBAR SPINE WO CON, 07/03/2024, 10:57. FINDINGS: Image quality: Excellent. Alignment and Curvature: Mild, grade 1, anterolisthesis of L4 on L5. Chronic compression deformity of T12 results in approximate 40% vertebral body height loss Bone Marrow: Transverse insufficiency fracture of the bilateral S1-S2 vertebral bodies and ala. No compromise or stenosis within the sacral neural foramina. No acute vertebral body compression fractures. Chronic compression deformity of T12 results in approximate 40% vertebral body height loss, unchanged from June. Spinal Cord: Conus medullaris terminates at the L1 level. Visualized cord demonstrates normal signal and size. Paraspinous Soft Tissues: No paravertebral masses. T11-12: Mild spinal canal stenosis due to vertebral body height loss and a degenerated, symmetrically bulging disc. No neural foraminal stenosis. T12-L1: Normal appearance. L1-L2: Mild spinal canal stenosis due to asymmetrically, diffusely bulging disc, low ligamentum flavum thickening, and facet arthrosis. No neural foraminal stenosis. L2-L3: Mild spinal canal stenosis and mild right lateral recess stenosis due to a asymmetrically, diffusely bulging disc, ligamentum flavum thickening, and facet arthrosis, worse on the right. Mild right neural foraminal stenosis due to subarticular bulging disc and facet arthrosis. No left neural foraminal stenosis. L3-L4: Moderate spinal canal stenosis due to a degenerated, symmetrically, bulging disc, ligamentum flavum thickening, and severe facet arthrosis. Right mild and left moderate neural foraminal stenosis due to subarticular bulging disc and facet arthrosis. L4-L5: Mild spinal canal stenosis and mild bilateral lateral recess stenosis due to anterolisthesis disc uncovering, superimposed, symmetrical bulging disc, ligamentum flavum thickening, and facet arthrosis. Right mild and left moderate to severe neural foraminal stenosis due to subarticular disc extrusion and facet arthrosis. L5-S1: Severe left lateral recess stenosis due to an asymmetric central to left extraforaminal disc extrusion and facet arthrosis. Bilateral severe neural foraminal stenosis due to subarticular disc extrusion and facet arthrosis. IMPRESSION: 1. S1-2 transverse insufficiency fracture 2. Multilevel spinal canal stenosis reaches moderate at L3-4. 3. Severe left lateral recess stenosis at L5-S1 due to an asymmetric disc extrusion. 4. Multilevel neural foraminal stenosis reaches severe bilaterally at L5-S1 and moderate to severe on the left at L4-5. Otherwise, as detailed above. Dictated by: Dejon Phillip M.D. on 12/21/2024 at 9:43 Approved by: Dejon Phillip M.D. on 12/21/2024 at 9:51
== END ==
LOC: MRI 19:17
PROVIDERS: Family Provider Family Medicine; PCP Family Medicine; Referring Provider Family Medicine; Visit Provider Family Medicine
DX: M51.17 Intervertebral disc disorders with radiculopathy, lumbosacral region (principal); M48.061 Spinal stenosis, lumbar region without neurogenic claudication; M48.07 Spinal stenosis, lumbosacral region; M84.48XA Pathological fracture, other site, initial encounter for fracture; Z87.39 Personal history of other diseases of the musculoskeletal system and connective tissue; Z87.81 Personal history of (healed) traumatic fracture
CPT/HCPCS: 72148

== ENCOUNTER → 2024-12-21 14:06 | Outpatient (CLI) | payer MEDICARE, OTHER, SELFPAY ==
--- NOTE | 2024-12-21 14:07 | DI.MRI.S_ITS ---
PROCEDURE: MR PELVIS WO CON INDICATIONS: Fall injury TECHNIQUE: Noncontrast coronal and axial T1 spin echo and STIR through the bony pelvis. COMPARISON: [facility], MR, MR LUMBAR SPINE WO CON, 12/20/2024, 19:19. FINDINGS: Image quality: Excellent. Bones: As seen on earlier MRI of lumbar spine study. There is significant marrow edema involving left sacrum with linear T2 hyperintense signal extending to medial aspect of right sacrum consistent with nondisplaced fractures in this area. No femoral fracture or dislocation. No coccygeal fracture. Bilateral hip joint osteoarthritic changes are seen. No evidence of avascular necrosis of femoral head. Spondylitic changes are noted in visualized lower lumbar spine. Tendons: Mild bilateral distal gluteus medius and minimus tendinosis is seen. No fluid distension of trochanteric bursa. The nearby proximal iliotibial band also appears intact. The iliopsoas tendon appears intact, without adjacent bursal fluid collections or evidence for impingement syndrome. Tendinosis involving left hamstring tendon origins at ischial tuberosity is seen. Right hamstring tendon origin is intact. Large [id number] shows signal abnormality and fraying involving bilateral superior anterior acetabular labrum concerning for bilateral superior anterior labral tear. Soft tissues: Visualized muscles demonstrate normal bulk and internal signal. No joint effusions. No free pelvic fluid. Bladder wall thickness is normal. Genitourinary structures and bowel loops appear normal where visualized. IMPRESSION: 1. Insufficiency fracture involving left sacrum extending to involve medial aspect of right sacrum at S1-2 level unchanged from previous study. 2. Spondylitic changes in visualized lower lumbar spine better evaluated on previous lumbar spine MRI. No coccygeal fracture. 3. No other fracture or dislocation. No evidence of avascular necrosis of femoral heads. 4. Bilateral distal gluteus medius and minimus tendinosis. Tendinosis involving left hamstring tendon origins at ischial tuberosity. 5. Suggestion of bilateral superior anterior acetabular labral tear. 6. No pelvic free fluid. No soft tissue mass or drainable fluid collection. Dictated by: Shemar Samuels M.D. on 12/21/2024 at 15:17 Approved by: Shemar Samuels M.D. on 12/21/2024 at 15:21
== END ==
LOC: MRI 14:07
PROVIDERS: Family Provider Family Medicine; PCP Family Medicine; Referring Provider Family Medicine; Visit Provider Family Medicine
DX: S32.10XA Unspecified fracture of sacrum, initial encounter for closed fracture (principal); M47.26 Other spondylosis with radiculopathy, lumbar region; R10.2 Pelvic and perineal pain; W08.XXXA Fall from other furniture, initial encounter
CPT/HCPCS: 72195

== ENCOUNTER 2024-12-31 12:14 | Emergency (ER) | payer MEDICARE, OTHER, SELFPAY ==
[2024-12-31] VITALS (17 sets, daily range): BP systolic 167–196; BP diastolic 71–88; PULSE 61–85; RESP 14–18; TEMP 36.9; O2SAT 94–100; BMI 22.8
--- NOTE | 2024-12-31 12:26 | ED.BACK ---
HPI - Back Pain/Injury General Chief Complaint: Back Pain/Injury Stated Complaint: Back Pain Time Seen by Provider: 12/31/24 12:18 History of Present Illness HPI Narrative: Patient is a 79-year-old female with known sacral insufficiency fracture and, known L4-L5 radiculopathy presenting today with increasing pain. She saw and evaluate weighted by Dr. Chase cagle yesterday. She reports increasing pain. It is difficult for her to get around and stand and cook. She lives alone. She was taking tramadol at home for pain and reports that it does not help her all. I have reviewed Dr. Elam note who recommend supportive care for the sacral fracture and has referred to Dr. Craig, for evaluation of pinched nerve. He denies any leg weakness loss of urine or bowel. She really has a hard time sitting and standing Lang is sometimes okay. She has a hard time going to the bathroom because it hurts to sit down. No fever no chills. Related Data Home Medications ?Medication ?Instructions ?Recorded ?Confirmed atorvastatin 20 mg tablet 20 mg PO DAILY 08/14/20 12/30/24 ibuprofen 200 mg tablet (Advil) 200 mg PO Q6H PRN Pain (Scale 02/19/22 12/30/24 Score 4-6) diazepam 5 mg tablet 5 mg PO BEDTIME PRN 08/26/23 12/30/24 zoledronic acid 5 mg/100 mL in ea IV 08/26/23 12/30/24 mannitol 5 %-water intravenous piggybck (Reclast) losartan 50 mg tablet 50 mg PO BID 09/04/23 12/30/24 metoprolol succinate 25 mg 25 mg PO BID 10/27/23 12/30/24 tablet,extended release 24 hr ibuprofen 200 mg tablet (Advil) 600 mg PO TID PRN 12/23/24 12/30/24 Previous Rx's ?Medication ?Instructions ?Recorded gabapentin 300 mg capsule 600 mg (2 x 300 mg) PO BEDTIME #60 10/17/24 caps tramadol 50 mg tablet 100 mg (2 x 50 mg) PO Q8H PRN pain 12/26/24 #84 tabs calcitonin (salmon) 200 1 spray intranasal (ALT) DAILY 12/27/24 unit/actuation nasal spray sacral fx 3 months #3.7 mL lidocaine 4 % topical patch 1 patch topical DAILY PRN pain #30 12/30/24 (Aspercreme (lidocaine)) ea hydrocodone 5 mg-acetaminophen 325 1 tab PO Q6H PRN pain #10 tabs 12/31/24 mg tablet Allergies Allergy/AdvReac Type Severity Reaction Status Date / Time methylprednisolone (From AdvReac Intermediate Fainting Verified 12/31/24 12:55 Depo-Medrol) Patient History Medical History (Updated 12/31/24 @ 15:35 by Yuko Rand DO) Acute left lumbar radiculopathy Fall from stool Lumbar radiculopathy Osteoporosis Social History household members: none Smoking Status: Former smoker second hand exposure: Yes (parents were smokers ) alcohol intake: current (2 drinks per month ) substance use type: does not use alcohol intake frequency: a few times a month Exam Initial Vital Signs Initial Vital Signs: Vital Signs Pulse Rate 68 12/31/24 12:18 Pulse Oximetry 97 12/31/24 12:18 GENERAL: Alert kind 79-year-old and in no acute distress. HEENT: Head atraumatic,EOMI, pupils reactive, face symmetric, moist mucous membranes CARDIOVASCULAR: Regular rate and rhythm without murmurs, rubs or gallops. RESPIRATORY: Breath sounds equal bilaterally, no wheezes rales or rhonchi. ABDOMEN: Soft, nontender. Normoactive bowel sounds all 4 quadrants. No guarding or rebound. EXTREMITIES: Normal range of motion, no clubbing or edema. Neurovascularly intact NEUROLOGICAL: Alert and oriented x4. Sensation intact in lower extremities tender in lower SKIN: Warm, dry, no laceration, no petechiae, no rashes or lesions. Course Orders Ordered: ED Orders 12/31/24 13:25 Consult to BANDER HAND - Interface Analyst Stat Discontinued Medications Acetaminophen (Ofirmev) 1,000 mg in 100 mls @ 400 mls/hr IV NOW ONE Stop: 12/31/24 12:55 Last Infusion: 12/31/24 13:28 Dose: Infused Documented By: Admin: 12/31/24 13:07 Dose: 400 mls/hr Documented By: FREDDY Ketorolac Tromethamine (Ketorolac 30 Mg/Ml Vial) 15 mg IV NOW ONE Stop: 12/31/24 12:42 Last Admin: 12/31/24 13:06 Dose: 15 mg Documented By: FREDDY Morphine Sulfate (Morphine 2 Mg/Ml Inj) 2 mg IV NOW ONE Stop: 12/31/24 14:35 Last Admin: 12/31/24 14:53 Dose: 2 mg Documented By: SHAD Vital Signs Vital signs: Vital Signs - 8 hr 12/31/24 12:18 12/31/24 12:19 12/31/24 12:19 Temperature Pulse Rate 68 66 Respiratory Rate Blood Pressure 196/88 H Pulse Oximetry 97 97 Oxygen Delivery Method 12/31/24 12:25 12/31/24 12:30 12/31/24 12:31 Temperature 98.5 F Pulse Rate 67 64 Respiratory Rate 18 Blood Pressure 196/88 H 167/74 H Pulse Oximetry 100 96 Oxygen Delivery Method Room Air 12/31/24 12:31 12/31/24 13:23 12/31/24 13:25 Temperature Pulse Rate 66 67 Respiratory Rate 14 Blood Pressure 176/71 H Pulse Oximetry 96 96 Oxygen Delivery Method Room Air 12/31/24 13:25 12/31/24 13:30 12/31/24 13:31 Temperature Pulse Rate 66 85 Respiratory Rate 16 Blood Pressure 173/74 H Pulse Oximetry 97 96 Oxygen Delivery Method 12/31/24 13:31 12/31/24 14:00 12/31/24 14:00 Temperature Pulse Rate 63 61 Respiratory Rate Blood Pressure 171/73 H Pulse Oximetry 95 95 Oxygen Delivery Method 12/31/24 14:30 12/31/24 14:30 12/31/24 15:00 Temperature Pulse Rate 63 69 Respiratory Rate 16 Blood Pressure 176/72 H Pulse Oximetry 94 97 Oxygen Delivery Method 12/31/24 15:01 12/31/24 15:01 12/31/24 15:16 Temperature Pulse Rate 66 70 Respiratory Rate 18 Blood Pressure 181/81 H Pulse Oximetry 97 96 Oxygen Delivery Method 12/31/24 15:16 12/31/24 15:30 12/31/24 15:30 Temperature Pulse Rate 64 Respiratory Rate 16 Blood Pressure 189/81 H 178/77 H Pulse Oximetry 94 Oxygen Delivery Method 12/31/24 16:00 12/31/24 16:00 12/31/24 16:10 Temperature Pulse Rate 74 66 Respiratory Rate Blood Pressure 190/82 H Pulse Oximetry 97 96 Oxygen Delivery Method 12/31/24 16:10 Temperature Pulse Rate Respiratory Rate 16 Blood Pressure 173/75 H Pulse Oximetry Oxygen Delivery Method MDM - Back Pain/Injury MDM Narrative Medical decision making narrative: Patient is 71-year-old female has known fractures and radiculopathy having exacerbated pain. She has lidocaine patches at home and tramadol which she says not working. IV is placed she is given Toradol. She is re-evaluated stating that it has take the pain down some but still quite tender. She is given 2 mg of morphine. She is in his able to use a walker and get to the restroom. She lives alone she has a dog. Discussion about pain management home she would like to be home. We will change her tramadol to hydrocodone she reports that she has had this before without any problem. You discuss about not getting constipated and not taking these medications together. Her stepdaughter is coming to stay with her tonight. This time no need for blood work or further imaging. Discharge Plan Departure Patient Disposition: Home Clinical Impression: Sacral insufficiency fracture Qualifiers: Encounter type: initial encounter Qualified Code(s): M84.48XA - Pathological fracture, other site, initial encounter for fracture Instructions: DI for Lumbar Radiculopathy Activity Restrictions/Additional Instructions: *You have been diagnosed with lumbar radiculopathy and sacral insufficiency fracture *What to do: This will take time to heal. You have been referred to Dr. Huffman for lumbar radiculopathy and possible back surgery. Increase activity as tolerated *Continue to take medications as directed Fortuna 1 tablet every 4-6 hours if needed for severe pain Stop taking tramadol *Follow up with your primary care provider in 2-3 days or call [phone] Huffman as scheduled *Return to ER if you should have increasing pain weakness loss of urine or any new, worsening or concerning symptoms CONTROLLED SUBSTANCE DISCHARGE (Narcotoic/benzodiazepine/Flexeril/Phenergan) 1. You have been prescribed narcotic medications, it does have acetaminophen/Tylenol/paracetamol in it, DO NOT TAKE MORE THAN 4,00mg in 24 hours of Tylenol. TRAMADOL DOES NOT CONTAIN TYLENOL 2. Please understand that we cannot provide further refills of narcotics, benzodiazepines or controlled substances through the ED and her pain management will need to be through your provider. 3. While on these medications you cannot drive or operate heavy machinery. 4. You cannot sign legal documents or perform any duties such as this. 5. As long as you're taking opiate pain medications he should also be taking a stool softener such as Colace, Dulcolax, MiraLAX or prune juice, to help avoid constipation. Prescriptions: New hydrocodone-acetaminophen 5-325 mg tablet 1 tab PO Q6H PRN (Reason: pain) Qty: 10 0RF No Action ibuprofen [Advil] 200 mg tablet 600 mg PO TID PRN calcitonin (salmon) 200 unit/actuation spray,non-aerosol 1 spray intranasal (ALT) DAILY 90 Days Qty: 3.7 2RF Rx Instructions: sacral fx zoledronic hyau-[id number]-[id number] [Reclast] 5 mg/100 mL piggyback IV diazepam 5 mg tablet 5 mg PO BEDTIME PRN losartan 50 mg tablet 50 mg PO BID tramadol 50 mg tablet 100 mg PO Q8H PRN (Reason: pain) Qty: 84 5RF atorvastatin 20 mg tablet 20 mg PO DAILY metoprolol succinate 25 mg tablet extended release 24 hr 25 mg PO BID lidocaine [Aspercreme (lidocaine)] 4 % adhesive patch,medicated 1 patch topical DAILY PRN (Reason: pain) Qty: 30 0RF ibuprofen [Advil] 200 mg tablet 200 mg PO Q6H PRN (Reason: Pain (Scale Score 4-6)) gabapentin 300 mg capsule 600 mg PO BEDTIME Qty: 60 2RF Referrals: Blanca Lazaro DO [Primary Care Provider, Medical] Stand Alone Forms: Patient Portal/API
[2024-12-31] MEDS: KETOROLAC 30 MG/ML VIAL 15 MG IV (13:06)
[2024-12-31] MEDS: ACETAMINOPHEN IV 1,000 MG/100 ML VIAL 400 MG IV (13:07)
--- NOTE | 2024-12-31 14:22 | CM.SWNOTE ---
ED DECISION SUPPORT ANALYST DCP Assessment Note: Pt is a 79yo female, resident of [place], is seen in the ED for a sacral fracture and unmanaged pain. Pt lives in a house with her dog, Luciana. Pt's Primary Care Provider is Dr. Blanca Lazaro and insurance is Medicare and [employer]. Reviewed chart and discussed with multidisciplinary team pt's medical status and initial discharge needs. Per ED Provider, consulting with pt's orthopedic surgeon for further treatment plan/pain management but likely will discharge home; will need home health upon discharge for extra support. DECISION SUPPORT ANALYST met w/patient at bedside; introduced self and role. Patient was found in bed, alert and oriented, cooperative with assessment. Pt confirmed living situation and good support in neighbors and stepdaughter who lives in [place]. Pt expressed preference in discharge home only if pain is managed. Pt has no previous history of home health or SNF Rehab. Pt states she is typically independent with a cane and will now be prescribed a FWW. DECISION SUPPORT ANALYST discussed home health with pt, pt agreeable to referral and does not have a preference for agency, Just whoever will start the soonest. DECISION SUPPORT ANALYST called [facility] , it is reported they can likely start services on , 01/05. DECISION SUPPORT ANALYST called [facility] , it is reported they cannot provide a start of care date until Thursday, 01/02 and accounts payable coordinator consulted. DECISION SUPPORT ANALYST called [facility] , it is reported they can likely start services on Thursday, 01/03. DECISION SUPPORT ANALYST sent inital referral to [facility] via secure email with signed MD orders. MD orders scanned into pt chart. Plan: Anticipating dc home with [facility] pending acceptance. ED staff to follow closely for coordination of discharge plans. Talita Lafleur LYE MACHINE OPERATOR Discharge Planning/Care Management Discharge Planning Assessment Assigned Discharge KAROLYN [facility] Biller Provider Dr. Blanca Lazaro Insurance Medicare,Other (enter in Comment) Insurance Comment [employer]/Assigned Sandi Juarez Designee Name Contact Information [phone] Advance Directives? No Has Patient been No admitted in last 30 days? Prior Living House Arrangements Household Members none Type of Drives own vehicle transporation used prior to admit Independent with ADL Yes 's Is patient alert and Yes oriented? Needs Assistance Meal Prep,Home Chores / Shopping With Comment Currently - with high pain level Caregiver for No Another DME Already Rented / Cane Owned Patient/Family Home with Home Health Preference Barriers to No Discharge Discharge Plan Home with Home Health Referrals Initiated Home Health If patient plan is Yes home with home health: Has signed face to face form been completed? Medicare Choice List Yes Provided Medicare choice list patient reviewed on electronic tablet with SNF/HH Preference None identified, just whoever can start the soonest Has Agency SNF been Yes contacted Review Status In Process Please Provide Date 12/31/24 Initial DC Assessment Was Performed Next Review Type Continued Stay Review
[2024-12-31] MEDS: MORPHINE 2 MG/ML INJ IV (14:53)
== END 2024-12-31 16:27 | disposition home or self-care (01) ==
PROVIDERS: Emergency Provider Emergency Medicine; Family Provider Family Medicine; PCP Family Medicine
DX: M84.48XA Pathological fracture, other site, initial encounter for fracture (principal)
CPT/HCPCS: 36415; 96365; 96375; 99284; J0131; J1885; J2270

== ENCOUNTER → 2025-03-14 09:38 | Outpatient (CLI) | payer MEDICARE, OTHER, SELFPAY ==
--- NOTE | 2025-03-14 09:39 | DI.RAD.S_ITS ---
PROCEDURE: XR LUMBAR SPINE MIN 4V INDICATIONS: BACK PAIN TECHNIQUE: 5 views of the lumbar spine were acquired, including bilateral oblique views. COMPARISON: [facility], MR, MR LUMBAR SPINE WO CON, 12/20/2024, 19:19. FINDINGS: Bones: 5 nonrib-bearing vertebrae are present. There is normal bony alignment. Old T12 compression. No acute vertebral body compression fractures. Lower lumbar facet arthropathy. No suspicious bony lesions. Bilateral SI joint fusion screw. This is suggested on the lateral images in which there is significant lucency involving much of the S1 vertebral body. Soft tissues: Overlying bowel gas pattern is normal. No suspicious soft tissue calcifications. Oblique images: No pars defects. IMPRESSION: 1. No acute compression fractures. 2. Significant lucency involving the S1 vertebra suggesting significant loosening around the sacral screw. Comment: Suggest CT lumbar spine. Dictated by: Onesimo Merino M.D. on 03/14/2025 at 9:59 Approved by: Onesimo Merino M.D. on 03/14/2025 at 10:02
== END ==
PROVIDERS: Family Provider Family Medicine; PCP Family Medicine; Referring Provider Physical Medicine & Rehabilitation; Visit Provider Physical Medicine & Rehabilitation
DX: M47.816 Spondylosis without myelopathy or radiculopathy, lumbar region (principal); Z87.81 Personal history of (healed) traumatic fracture; Z87.39 Personal history of other diseases of the musculoskeletal system and connective tissue
CPT/HCPCS: 72110